=== PATIENT | male | born 1960 | race Caucasian/White ===

== ENCOUNTER → 2016-07-04 | Outpatient (CLI) | payer BC ==
--- NOTE | 2016-07-05 10:46 | XR ---
Left hip HISTORY: Left hip pain 2 views of the left. Comparison to prior exam 27 March 2015 Patient is status post left hip arthroplasty. There is heterotopic new bone formation about the left hip. Alignment and bone mineralization are maintained. No fracture or dislocation. Subchondral geode present in the acetabular roof. IMPRESSION: Extensive heterotopic new bone formation may be etiology of patient's pain.
== END ==
LOC: RADXRYALE 11:17
PROVIDERS: ATTEND Physician Assistant Medical
DX: M25.552 Pain in left hip (principal); M79.605 Pain in left leg; Z96.642 Presence of left artificial hip joint
CPT/HCPCS: 73502

== ENCOUNTER → 2016-10-07 | Outpatient (CLI) | payer BC ==
--- NOTE | 2016-10-09 13:51 | P.ARTDOP ---
Arterial Doppler LOWER EXTREMITY ARTERIAL DOPPLER: DATE OF SERVICE: 10/07/2016 Reason for study: Bilateral leg numbness. Doppler waveforms: Multiphasic bilaterally throughout. Pulse volume recording: Normal configuration. Pressure gradients: None. Ankle-brachial indices: Greater than 1 bilaterally. Toe pressures: [] on the right, [] on the left Impression: Normal study.
== END | disposition home or self-care (01) ==
LOC: RADUSWWP 12:30
PROVIDERS: ATTEND Family Medicine
DX: I73.9 Peripheral vascular disease, unspecified (principal); G62.9 Polyneuropathy, unspecified; M79.671 Pain in right foot; M79.672 Pain in left foot
CPT/HCPCS: 93922

== ENCOUNTER → 2018-05-14 | Outpatient (CLI) | payer OTHER ==
--- NOTE | 2018-05-14 10:40 | XR ---
EXAMINATION TYPE: XR chest 2V DATE OF EXAM: 05/14/2018 COMPARISON: Chest x-ray November 04, 2015. HISTORY: History of COPD with chronic shortness of breath TECHNIQUE: Frontal and lateral views of the chest are obtained. FINDINGS: There is background chronic emphysematous change with elevated left hemidiaphragm redemonst rated. Right hilar fullness is similar to prior suggesting underlying pulmonary artery hypertension. There is no focal air space opacity, pleural effusion, or pneumothorax seen. The cardiac silhouette size is stable and within normal limits. There is new mild to moderate focal tracheal concentric narr owing at level of the clavicles. The osseous structures are intact. IMPRESSION: Chronic emphysematous change without acute pulmonary process. New Mild focal concentric tracheal stenosis, correlate clinically.
== END | disposition home or self-care (01) ==
LOC: RADXRYALE 10:07
PROVIDERS: ATTEND Physician Assistant Medical
DX: J43.9 Emphysema, unspecified (principal); J39.8 Other specified diseases of upper respiratory tract
CPT/HCPCS: 71046

== ENCOUNTER → 2018-07-24 | Outpatient (CLI) | payer OTHER ==
[2018-07-24 11:46] LABS: Blood Urea Nitrogen 16 mg/dL (9-20)
--- NOTE | 2018-07-24 12:51 | CT ---
EXAMINATION TYPE: CT chest w con DATE OF EXAM: 07/24/2018 COMPARISON: None HISTORY: Stenosis of Trachea CT DLP: 573 mGycm Automated exposure control for dose reduction was used. CONTRAST: CT scan of the chest is performed with IV Contrast, patient injected with 100 mL of Isovue 300. FINDINGS: LUNGS: The lungs are grossly clear, there is no concerning parenchymal mass or nodule identified. T here is no pleural effusion or pneumothorax seen. The tracheobronchial tree is patent. MEDIASTINUM: There are no greater than 1 cm hilar or mediastinal lymph nodes. No pericardial effusi on is seen. Thoracic aorta is of normal caliber. The heart is not enlarged. No visible tracheal sten osis appreciated. UPPER ABDOMEN: Mild hepatomegaly. OTHER: No additional significant abnormality is seen. IMPRESSION: 1. No evidence for tracheal stenosis at this time.
== END | disposition home or self-care (01) ==
LOC: RADCTMAIN 11:08
PROVIDERS: ATTEND Nurse Practitioner Adult Health
DX: J39.8 Other specified diseases of upper respiratory tract (principal)
CPT/HCPCS: 82565; 84520; 71260; 36415; Q9967

== ENCOUNTER → 2018-11-20 | Outpatient (CLI) | payer OTHER ==
--- NOTE | 2018-11-26 11:49 | P.ARTDOP ---
Arterial Doppler LOWER EXTREMITY ARTERIAL DOPPLER: DATE OF SERVICE: 11/20/2018 Reason for study: Bilateral leg numbness. Doppler waveforms: Multiphasic bilaterally throughout. Pulse volume recording: []. Pressure gradients: None. Ankle-brachial indices: Greater than 1 bilaterally. Toe pressures: [] on the right, [] on the left Impression: Normal study.
== END | disposition home or self-care (01) ==
LOC: RADUSWWP 15:23
PROVIDERS: ATTEND Family Medicine
DX: M79.605 Pain in left leg (principal); M79.604 Pain in right leg; I48.0 Paroxysmal atrial fibrillation; I10 Essential (primary) hypertension; E78.2 Mixed hyperlipidemia
CPT/HCPCS: 93922; 93923

== ENCOUNTER 2019-01-29 10:15 | Emergency (ER) | payer OTHER ==
[2019-01-29] MEDS ORDERED: IPRATROPIUM-ALBUTEROL 3 ML NEB INHALATION STA ×2 (10:53→12:44)
[2019-01-29] MEDS ORDERED: methylPREDNISolone SOD SUCCI 125 MG/2 ML VIAL IV STA (10:53)
--- NOTE | 2019-01-29 11:22 | ED ---
SOB HPI - General Chief Complaint: Shortness of Breath Stated Complaint: Hyperglycemia, JAYNE Time Seen by Provider: 01/29/19 10:37 Source: patient, RN notes reviewed Mode of arrival: ambulatory Limitations: no limitations - History of Present Illness Initial Comments: This is a 4-year-old male with a history of COPD/asthma states she's had shortness of breath for about the last one half days cough with some yellow phlegm no overt fevers chills or sweats no overt chest pain. He states he always has some peripheral edema nothing out of the ordinary with that. No other modifying factors MD Complaint: shortness of breath, cough - Related Data Home Medications Medication Instructions Recorded Confirmed Hydrocodone/Acetaminophen 1 tab PO Q6H PRN 11/04/15 01/29/19 [Hydrocodone-Acetamin 7.5-325] metFORMIN HCL 1,000 mg PO BID 02/27/16 01/29/19 Atorvastatin [Lipitor] 80 mg PO DAILY 01/29/19 01/29/19 Gabapentin [Neurontin] 600 mg PO TID 01/29/19 01/29/19 Hydrochlorothiazide [Hydrodiuril] 25 mg PO DAILY 01/29/19 01/29/19 Insulin Glargine,Hum.rec.anlog 28 unit SQ HS 01/29/19 01/29/19 [Lantus Solostar] Ipratropium-Albuterol Nebulize 3 ml INHALATION RT-Q6H PRN 01/29/19 01/29/19 [Duoneb 0.5 mg-3 mg/3 ml Soln] Metoprolol Tartrate [Lopressor] 100 mg PO BID 01/29/19 01/29/19 glipiZIDE [Glucotrol] 20 mg PO BID 01/29/19 01/29/19 Previous Rx's Medication Instructions Recorded Doxycycline [Vibramycin] 100 mg PO BID #20 cap 01/29/19 predniSONE 20 mg PO BID #10 tab 01/29/19 Allergies Allergy/AdvReac Type Severity Reaction Status Date / Time No Known Allergies Allergy Verified 01/29/19 13:22 Review of Systems ROS Statement: Those systems with pertinent positive or pertinent negative responses have been documented in the HPI. ROS Other: All systems not noted in ROS Statement are negative. Past Medical History Past Medical History: Atrial Fibrillation, COPD, Diabetes Mellitus, Hypertension Additional Past Medical History / Comment(s): PT STATES HX BRONCHITIS.,lt hip post op infection-now healed History of Any Multi-Drug Resistant Organisms: None Reported Past Surgical History: Appendectomy, Joint Replacement, Orthopedic Surgery Additional Past Surgical History / Comment(s): L Index FINGER AMPUTATED FOR OSTEOMYLETIS,CATARACTS, CARPAL TUNNEL (L). LTotal hip-I&D x 2 Past Anesthesia/Blood Transfusion Reactions: No Reported Reaction Additional Past Anesthesia/Blood Transfusion Reaction / Comment(s): no hx blood transfusion Past Psychological History: No Psychological Hx Reported Smoking Status: Former smoker Past Alcohol Use History: Daily, Heavy Past Drug Use History: None Reported - Past Family History Father Additional Family Medical History / Comment(s): of old age Mother Family Medical History: Cancer, Diabetes Mellitus Additional Family Medical History / Comment(s): BREAST CA General Exam - General Exam Comments Initial Comments: This is a well-developed well-nourished awake alert oriented 3 male Limitations: no limitations General appearance: anxious Head exam: Present: atraumatic, normocephalic, normal inspection Eye exam: Present: normal appearance, PERRL, EOMI. Absent: scleral icterus, conjunctival injection, periorbital swelling ENT exam: Present: mucous membranes dry Neck exam: Present: normal inspection, full ROM, other. Absent: tenderness, meningismus, lymphadenopathy Respiratory exam: Present: wheezes, decreased breath sounds. Absent: respiratory distress, rales, rhonchi, stridor, chest wall tenderness Cardiovascular Exam: Present: regular rate, normal rhythm, normal heart sounds. Absent: systolic murmur, diastolic murmur, rubs, gallop, clicks GI/Abdominal exam: Present: soft, normal bowel sounds. Absent: distended, tenderness, guarding, rebound, rigid Extremities exam: Present: full ROM, normal capillary refill, pedal edema. Absent: tenderness, joint swelling, calf tenderness Back exam: Present: normal inspection Neurological exam: Present: alert, oriented X3, CN II-XII intact Psychiatric exam: Present: normal affect, normal mood Skin exam: Present: warm, dry, intact, normal color. Absent: rash Course Vital Signs 01/29/19 01/29/19 01/29/19 10:30 11:00 11:15 Temperature 97.6 F Pulse Rate 92 89 92 Respiratory 16 28 H Rate Blood Pressure 197/98 149/99 O2 Sat by Pulse 93 L 97 Oximetry 01/29/19 01/29/19 01/29/19 11: 12:00 13:02 Temperature Pulse Rate 92 89 95 Respiratory 18 Rate Blood Pressure 150/94 O2 Sat by Pulse 98 Oximetry 01/29/19 13:15 Temperature Pulse Rate 94 Respiratory Rate Blood Pressure O2 Sat by Pulse Oximetry Medical Decision Making - Medical Decision Making I did reevaluate patient on multiple occasions he did get IV magnesium as well as IV steroids. Patient is markedly improved and does not want to stay in the hospital would prefer to go home he is able to ambulate without difficulty his lung sounds are markedly improved he will be discharged with a prescription for steroid he has had the other medication that he uses at home. - Lab Data Result diagrams: 01/29/19 11:27 01/29/19 11:27 Lab Results 01/29/19 01/29/19 01/29/19 Range/Units 11: 11: 11:27 WBC 7.7 (3.8-10.6) k/uL RBC 4.18 L (4.30-5.90) m/uL Hgb 12.7 L (13.0-17.5) gm/dL Hct 38.3 L (39.0-53.0) % MCV 91.5 (80.0-100.0) fL MCH 30.4 (25.0-35.0) pg MCHC 33.2 (31.0-37.0) g/dL RDW 14.0 (11.5-15.5) % Plt Count 227 (150-450) k/uL Neutrophils % 63 % Lymphocytes % 23 % Monocytes % 5 % Eosinophils % 5 % Basophils % 1 % Neutrophils # 4.8 (1.3-7.7) k/uL Lymphocytes # 1.7 (1.0-4.8) k/uL Monocytes # 0.4 (0-1.0) k/uL Eosinophils # 0.4 (0-0.7) k/uL Basophils # 0.1 (0-0.2) k/uL PT (9.0-12.0) sec INR (<1.2) APTT (22.0-30.0) sec Sodium 134 L (137-145) mmol/L Potassium 4.9 (3.5-5.1) mmol/L Chloride 93 L (98-107) mmol/L Carbon Dioxide 31 H (22-30) mmol/L Anion Gap 10 mmol/L BUN 20 (9-20) mg/dL Creatinine 0.67 (0.66-1.25) mg/dL Est GFR (CKD-EPI)AfAm >90 (>60 ml/min/1.73 sqM) Est GFR (CKD-EPI)NonAf >90 (>60 ml/min/1.73 sqM) Glucose 171 H (74-99) mg/dL Calcium 9.5 (8.4-10.2) mg/dL Magnesium 1.5 L (1.6-2.3) mg/dL Total Bilirubin 0.8 (0.2-1.3) mg/dL AST 27 (17-59) U/L ALT 39 (21-72) U/L Alkaline Phosphatase 75 (38-126) U/L Creatine Kinase 215 H (55-170) U/L Troponin I (0.000-0.034) ng/mL NT-Pro-B Natriuret Pep 156 pg/mL Total Protein 7.3 (6.3-8.2) g/dL Albumin 4.5 (3.5-5.0) g/dL 01/29/19 01/29/19 Range/Units 11:27 11:27 WBC (3.8-10.6) k/uL RBC (4.30-5.90) m/uL Hgb (13.0-17.5) gm/dL Hct (39.0-53.0) % MCV (80.0-100.0) fL MCH (25.0-35.0) pg MCHC (31.0-37.0) g/dL RDW (11.5-15.5) % Plt Count (150-450) k/uL Neutrophils % % Lymphocytes % % Monocytes % % Eosinophils % % Basophils % % Neutrophils # (1.3-7.7) k/uL Lymphocytes # (1.0-4.8) k/uL Monocytes # (0-1.0) k/uL Eosinophils # (0-0.7) k/uL Basophils # (0-0.2) k/uL PT 9.7 (9.0-12.0) sec INR 0.9 (<1.2) APTT 23.4 (22.0-30.0) sec Sodium (137-145) mmol/L Potassium (3.5-5.1) mmol/L Chloride (98-107) mmol/L Carbon Dioxide (22-30) mmol/L Anion Gap mmol/L BUN (9-20) mg/dL Creatinine (0.66-1.25) mg/dL Est GFR (CKD-EPI)AfAm (>60 ml/min/1.73 sqM) Est GFR (CKD-EPI)NonAf (>60 ml/min/1.73 sqM) Glucose (74-99) mg/dL Calcium (8.4-10.2) mg/dL Magnesium (1.6-2.3) mg/dL Total Bilirubin (0.2-1.3) mg/dL AST (17-59) U/L ALT (21-72) U/L Alkaline Phosphatase (38-126) U/L Creatine Kinase (55-170) U/L Troponin I <0.012 (0.000-0.034) ng/mL NT-Pro-B Natriuret Pep pg/mL Total Protein (6.3-8.2) g/dL Albumin (3.5-5.0) g/dL - EKG Data -: EKG Interpreted by Me EKG shows normal: sinus rhythm EKG Comments: EKG shows sinus rhythm with sinus arrhythmia rate 84 MT interval 198 QRS 90 QT since QTC 342/404 - Radiology Data Radiology results: report reviewed (Review the imaging and report no evidence of acute findings), image reviewed Disposition Clinical Impression: Acute exacerbation of chronic obstructive pulmonary disease, Bronchitis Disposition: HOME SELF-CARE Condition: Good Instructions (If sedation given, give patient instructions): Bronchiectasis (ED), COPD (Chronic Obstructive Pulmonary Disease) (ED) Additional Instructions: Prescriptions sent to your preferred pharmacy Prescriptions: predniSONE 20 mg PO BID #10 tab Doxycycline [Vibramycin] 100 mg PO BID #20 cap Is patient prescribed a controlled substance at d/c from ED?: No Referrals: Arun Berg DO [Primary Care Provider] - 1-2 days
[2019-01-29 11:46] LABS: Basophils # (A) 0.1 k/uL (0-0.2); Basophils % (A) 1 %; Eosinophils # (A) 0.4 k/uL (0-0.7); Eosinophils % (A) 5 %; HCT 38.3 % (39.0-53.0); HGB 12.7 gm/dL (13.0-17.5); Lymphocytes # (A) 1.7 k/uL (1.0-4.8); Lymphocytes % (A) 23 %; MCH 30.4 pg (25.0-35.0); MCHC 33.2 g/dL (31.0-37.0); MCV 91.5 fL (80.0-100.0); Mean Platelet Volume 7.9; Monocytes # (A) 0.4 k/uL (0-1.0); Monocytes % (A) 5 %; Neutrophils # (A) 4.8 k/uL (1.3-7.7); Neutrophils % (A) 63 %; Platelet Count 227 k/uL (150-450); RBC 4.18 m/uL (4.30-5.90); WBC 7.7 k/uL (3.8-10.6)
[2019-01-29 11:52] LABS: ALT 39 U/L (21-72); AST 27 U/L (17-59); African American GFR (CKD) >90 (>60 ml/min/1.73 sqM); Albumin 4.5 g/dL (3.5-5.0); Alkaline Phosphatase 75 U/L (38-126); Anion Gap 10 mmol/L; Blood Urea Nitrogen 20 mg/dL (9-20); Calcium 9.5 mg/dL (8.4-10.2); Carbon Dioxide 31 mmol/L (22-30); Chloride 93 mmol/L (98-107); Creatine Kinase 215 U/L (55-170); Glucose 171 mg/dL (74-99); Magnesium 1.5 mg/dL (1.6-2.3); Non-African American GFR(CKD) >90 (>60 ml/min/1.73 sqM); Potassium 4.9 mmol/L (3.5-5.1); Sodium 134 mmol/L (137-145); Total Bilirubin 0.8 mg/dL (0.2-1.3); Total Protein 7.3 g/dL (6.3-8.2)
[2019-01-29 11:57] LABS: INR 0.9 (<1.2)
[2019-01-29 11:58] LABS: Partial Thromboplastin Time 23.4 sec (22.0-30.0); Prothrombin Time 9.7 sec (9.0-12.0)
--- NOTE | 2019-01-29 12:06 | XR ---
EXAMINATION TYPE: XR chest 2V DATE OF EXAM: 01/29/2019 COMPARISON: 05/14/2018 HISTORY: Shortness of breath TECHNIQUE: Frontal and lateral views of the chest are obtained. FINDINGS: Scattered senescent parenchymal changes noted. Hyperinflation compatible with COPD. No evidence for infiltrate. No evidence for atelectasis. Heart size is stable. Mediastinal structures are stable and grossly unremarkable. No evidence for hilar prominence. Degenerative changes dorsal spine. IMPRESSION: 1. No evidence for acute pulmonary disease.
[2019-01-29] MEDS ORDERED: MAGNESIUM SULFATE-D5W PMX 1 GM in DEXTROSE/WATER 1 100ML.BAG IVPB ONE (12:28)
[2019-01-29 12:41] VITALS: RESP 18
[2019-01-29 14:22] VITALS: BP 146/90; PULSE 97
[2019-01-29 14:28] VITALS: TEMP 98
== END 2019-01-29 14:27 | disposition home or self-care (01) ==
LOC: EC 10:15
DX: J44.1 Chronic obstructive pulmonary disease with (acute) exacerbation (principal); J40 Bronchitis, not specified as acute or chronic; R60.0 Localized edema; I48.91 Unspecified atrial fibrillation; E11.9 Type 2 diabetes mellitus without complications; I10 Essential (primary) hypertension; Z79.4 Long term (current) use of insulin; Z79.899 Other long term (current) drug therapy; Z79.51 Long term (current) use of inhaled steroids; Z87.891 Personal history of nicotine dependence
CPT/HCPCS: 36415; 71046; 80053; 82550; 83735; 83880; 84484; 85025; 85610; 85730; 87040; 93005; 94640; 96365; 96375; 99285

== ENCOUNTER → 2019-03-30 | Outpatient (CLI) | payer OTHER ==
--- NOTE | 2019-03-30 09:27 | XR ---
EXAMINATION TYPE: XR foot complete RT DATE OF EXAM: 03/30/2019 CLINICAL HISTORY: pain TECHNIQUE: Frontal, lateral and oblique images of the right foot are obtained. COMPARISON: None. FINDINGS: There is no acute fracture/dislocation evident. The joint spaces appear mildly narrowed a t the first metatarsal phalangeal joint. The overlying soft tissue appears unremarkable. IMPRESSION: There is no acute fracture or dislocation. ICD 10 NO FRACTURE, INITIAL EVALUATION
== END | disposition home or self-care (01) ==
LOC: RADXRYALE 08:45
PROVIDERS: ATTEND Physician Assistant Medical
DX: S91.301A Unspecified open wound, right foot, initial encounter (principal)

== ENCOUNTER → 2019-04-30 | Outpatient (CLI) | payer OTHER ==
--- NOTE | 2019-04-30 13:28 | NM ---
EXAMINATION TYPE: NM bone 3 phase DATE OF EXAM: 04/30/2019 COMPARISON: Radiograph 04/16/2019 and 03/30/2019 HISTORY: 58-year-old male open sore on the right along the medial ball of the foot Technique: Triple phase bone scintigraphy was performed following the injection of 22.5 mCi Tc 99m MD P. Immediate images and 3 hours post injection images acquired. Imaging centered at the distal aspec t of the bilateral lower extremities. FINDINGS: Flow images show hyperemia to the right forefoot. Pool images show corresponding increased signal at the level of the first metatarsal head. Delayed images show intense focal uptake in this region as well. IMPRESSION: Three-phase bone scan abnormality localized to the first metatarsal head. Findings suggest osteomyeli tis.
== END | disposition home or self-care (01) ==
LOC: RADNMMAIN 07:29
PROVIDERS: ATTEND Podiatrist
DX: R93.7 Abnormal findings on diagnostic imaging of other parts of musculoskeletal system (principal); E11.621 Type 2 diabetes mellitus with foot ulcer; I10 Essential (primary) hypertension; L97.502 Non-pressure chronic ulcer of other part of unspecified foot with fat layer exposed; I73.9 Peripheral vascular disease, unspecified; M1A.0711 Idiopathic chronic gout, right ankle and foot, with tophus (tophi); M86.171 Other acute osteomyelitis, right ankle and foot
CPT/HCPCS: 78315; A9503

== ENCOUNTER → 2019-05-04 | Outpatient (CLI) | payer OTHER ==
--- NOTE | 2019-05-04 11:00 | US ---
LOWER EXTREMITY VENOUS INSUFFICIENCY CLINICAL HISTORY: E11.621 TYPE 2 DIABETES MELLITUS, L97.502 NON-PRES. Right foot non healing wound x 1 month SIDE PERFORMED: Bilateral 1) Color flow is present and patency is documented in the following vessels. No DVT or SVT is noted . EIV Common Femoral Vein Deep Femoral Vein Femoral Vein Popliteal Vein Proximal Calf Veins Greater Saph Vein Upper Small Saph Vein 2) There is venous reflux noted at the following venous levels: none IMPRESSION: 1. No venous reflux evident bilateral lower extremities.
--- NOTE | 2019-05-05 10:04 | P.ARTDOP ---
Arterial Doppler LOWER EXTREMITY ARTERIAL DOPPLER: DATE OF SERVICE: 05/04/2019 Reason for study: Right foot ulcer with diabetes. Doppler waveforms: Multiphasic bilaterally throughout. Pulse volume recording: []. Pressure gradients: None other than at the foot level. Ankle-brachial indices: Greater than 1 bilaterally. Toe brachial indices: 0.38 on the right and 0.74 on the left on the right, Impression: Normal study. Toe pressures are lower on the right but the waveform is better so suspect flow is normal..
== END | disposition home or self-care (01) ==
LOC: RADUSWWP 08:59
PROVIDERS: ATTEND Podiatrist
DX: E11.621 Type 2 diabetes mellitus with foot ulcer (principal); I73.9 Peripheral vascular disease, unspecified; I10 Essential (primary) hypertension; L97.502 Non-pressure chronic ulcer of other part of unspecified foot with fat layer exposed
CPT/HCPCS: 93923; 93970

== ENCOUNTER 2019-05-20 14:05 | Inpatient (IN) | payer OTHER ==
[2019-05-20] MEDS ORDERED: PIPERACILLIN-TAZOBACTAM 3.375 GM in SODIUM CHLORIDE 0.9% 100 ML IVPB STA (14:45)
[2019-05-20] MEDS ORDERED: VANCOMYCIN IV PER PHARMACY 1 EACH MISC MISCELLANE PRN (14:45)
[2019-05-20] MEDS ORDERED: MORPHINE SULFATE 4 MG/ML SYRINGE IVP STA (14:46)
[2019-05-20] MEDS ORDERED: ACETAMINOPHEN TAB 500 MG TAB PO STA (14:46)
--- NOTE | 2019-05-20 14:46 | ED ---
Extremity Problem HPI - General Chief complaint: Extremity Problem,Nontraumatic Stated complaint: Infection Time Seen by Provider: 05/20/19 14:16 Source: EMS, RN notes reviewed, old records reviewed Mode of arrival: EMS Limitations: physical limitation - History of Present Illness Initial comments: Patient is a 58-year-old male diabetic with history of COPD. He presents to the emergency Department today with complaints of right great toe infection. He reports he is noticed increasing redness and swelling and signs of infection for the past month. He states some antibiotic but cannot tell me what type this time. Patient states that he does see wound care physician Dr. Becker. He saw them yesterday. - Related Data Home Medications Medication Instructions Recorded Confirmed Hydrocodone/Acetaminophen 1 tab PO Q6H PRN 11/04/15 01/29/19 [Hydrocodone-Acetamin 7.5-325] metFORMIN HCL 1,000 mg PO BID 02/27/16 01/29/19 Atorvastatin [Lipitor] 80 mg PO DAILY 01/29/19 01/29/19 Gabapentin [Neurontin] 600 mg PO TID 01/29/19 01/29/19 Hydrochlorothiazide [Hydrodiuril] 25 mg PO DAILY 01/29/19 01/29/19 Insulin Glargine,Hum.rec.anlog 28 unit SQ HS 01/29/19 01/29/19 [Lantus Solostar] Ipratropium-Albuterol Nebulize 3 ml INHALATION RT-Q6H PRN 01/29/19 01/29/19 [Duoneb 0.5 mg-3 mg/3 ml Soln] Metoprolol Tartrate [Lopressor] 100 mg PO BID 01/29/19 01/29/19 glipiZIDE [Glucotrol] 20 mg PO BID 01/29/19 01/29/19 Previous Rx's Medication Instructions Recorded Doxycycline [Vibramycin] 100 mg PO BID #20 cap 01/29/19 predniSONE [Deltasone] 20 mg PO BID #10 tab 01/29/19 Allergies Allergy/AdvReac Type Severity Reaction Status Date / Time No Known Allergies Allergy Verified 01/29/19 13:22 Review of Systems ROS Statement: Those systems with pertinent positive or pertinent negative responses have been documented in the HPI. ROS Other: All systems not noted in ROS Statement are negative. Past Medical History Past Medical History: Atrial Fibrillation, COPD, Diabetes Mellitus, Hypertension Additional Past Medical History / Comment(s): PT STATES HX BRONCHITIS.,lt hip post op infection-now healed History of Any Multi-Drug Resistant Organisms: None Reported Past Surgical History: Appendectomy, Joint Replacement, Orthopedic Surgery Additional Past Surgical History / Comment(s): L Index FINGER AMPUTATED FOR OS TEOMYLETIS,CATARACTS, CARPAL TUNNEL (L). LTotal hip-I&D x 2 Past Anesthesia/Blood Transfusion Reactions: No Reported Reaction Additional Past Anesthesia/Blood Transfusion Reaction / Comment(s): no hx blood transfusion Past Psychological History: No Psychological Hx Reported Smoking Status: Former smoker Past Alcohol Use History: Daily, Heavy Past Drug Use History: None Reported - Past Family History Father Additional Family Medical History / Comment(s): of old age Mother Family Medical History: Cancer, Diabetes Mellitus Additional Family Medical History / Comment(s): BREAST CA General Exam - General Exam Comments Initial Comments: 58 year old male, no distress. Limitations: physical limitation General appearance: alert, in no apparent distress Head exam: Present: atraumatic, normocephalic, normal inspection Eye exam: Present: normal appearance ENT exam: Present: normal exam, mucous membranes moist Neck exam: Present: normal inspection. Absent: tenderness, meningismus, lymphadenopathy Respiratory exam: Present: wheezes, decreased breath sounds. Absent: normal lung sounds bilaterally, respiratory distress, rales, rhonchi, stridor Cardiovascular Exam: Present: regular rate, normal rhythm, normal heart sounds. Absent: systolic murmur, diastolic murmur, rubs, gallop, clicks GI/Abdominal exam: Present: soft, normal bowel sounds. Absent: distended, tenderness, guarding, rebound, rigid Extremities exam: Present: full ROM, normal capillary refill, other ( is extensive cellulitis over the right lower extremity and calf. Evidence of wound over the first great toe with drainage.). Absent: normal inspection, tenderness, pedal edema, joint swelling, calf tenderness Back exam: Present: normal inspection Neurological exam: Present: alert Psychiatric exam: Present: normal affect, normal mood Skin exam: Present: warm, dry, intact, normal color. Absent: rash Course Vital Signs 05/20/19 05/20/19 14:06 15:52 Temperature 98.4 F Pulse Rate 121 H 96 Respiratory 22 20 Rate Blood Pressure 131/92 132/93 O2 Sat by Pulse 97 98 Oximetry Medical Decision Making - Medical Decision Making 58 year old male presents today for concern for right foot wound and infection and cellulitis over the R leg. Patient is diabetic. Patient has extensive cellulitis extending up to the calf. Patient does have multiple wounds over the great toe. Culture is obtained. Patient was started on Zosyn and vancomycin. Patient's labs show evidence of renal compromise. This is worse than previous. Foot x-ray shows no evidence of osteomyelitis. Patient otherwise does have some wheezing, with history of COPD. Chest x-ray shows no infiltrate. - Lab Data Result diagrams: 05/20/19 14:47 05/20/19 14:47 Lab Results 05/20/19 05/20/19 05/20/19 Range/Units 14:47 14:47 14:47 WBC 10.9 H (3.8-10.6) k/uL RBC 3.59 L (4.30-5.90) m/uL Hgb 10.4 L (13.0-17.5) gm/dL Hct 32.5 L (39.0-53.0) % MCV 90.6 (80.0-100.0) fL MCH 29.0 (25.0-35.0) pg MCHC 32.1 (31.0-37.0) g/dL RDW 13.2 (11.5-15.5) % Plt Count 677 H D (150-450) k/uL Neutrophils % 79 % Lymphocytes % 9 % Monocytes % 5 % Eosinophils % 2 % Basophils % 0 % Neutrophils # 8.7 H (1.3-7.7) k/uL Lymphocytes # 1.0 (1.0-4.8) k/uL Monocytes # 0.6 (0-1.0) k/uL Eosinophils # 0.2 (0-0.7) k/uL Basophils # 0.0 (0-0.2) k/uL PT 10.8 (9.0-12.0) sec INR 1.0 (<1.2) APTT 25.3 (22.0-30.0) sec Sodium 143 (137-145) mmol/L Potassium 5.5 H (3.5-5.1) mmol/L Chloride 110 H (98-107) mmol/L Carbon Dioxide 23 (22-30) mmol/L Anion Gap 10 mmol/L BUN 95 H (9-20) mg/dL Creatinine 2.59 H (0.66-1.25) mg/dL Est GFR (CKD-EPI)AfAm 30 (>60 ml/min/1.73 sqM) Est GFR (CKD-EPI)NonAf 26 (>60 ml/min/1.73 sqM) Glucose 196 H (74-99) mg/dL Plasma Lactic Acid Elias (0.7-2.0) mmol/L Calcium 10.3 H (8.4-10.2) mg/dL Total Bilirubin 0.4 (0.2-1.3) mg/dL AST 30 (17-59) U/L ALT 28 (4-49) U/L Alkaline Phosphatase 108 (38-126) U/L Troponin I (0.000-0.034) ng/mL Total Protein 6.9 (6.3-8.2) g/dL Albumin 3.7 (3.5-5.0) g/dL 05/20/19 05/20/19 Range/Units 14:47 14:47 WBC (3.8-10.6) k/uL RBC (4.30-5.90) m/uL Hgb (13.0-17.5) gm/dL Hct (39.0-53.0) % MCV (80.0-100.0) fL MCH (25.0-35.0) pg MCHC (31.0-37.0) g/dL RDW (11.5-15.5) % Plt Count (150-450) k/uL Neutrophils % % Lymphocytes % % Monocytes % % Eosinophils % % Basophils % % Neutrophils # (1.3-7.7) k/uL Lymphocytes # (1.0-4.8) k/uL Monocytes # (0-1.0) k/uL Eosinophils # (0-0.7) k/uL Basophils # (0-0.2) k/uL PT (9.0-12.0) sec INR (<1.2) APTT (22.0-30.0) sec Sodium (137-145) mmol/L Potassium (3.5-5.1) mmol/L Chloride (98-107) mmol/L Carbon Dioxide (22-30) mmol/L Anion Gap mmol/L BUN (9-20) mg/dL Creatinine (0.66-1.25) mg/dL Est GFR (CKD-EPI)AfAm (>60 ml/min/1.73 sqM) Est GFR (CKD-EPI)NonAf (>60 ml/min/1.73 sqM) Glucose (74-99) mg/dL Plasma Lactic Acid Elias 0.9 (0.7-2.0) mmol/L Calcium (8.4-10.2) mg/dL Total Bilirubin (0.2-1.3) mg/dL AST (17-59) U/L ALT (4-49) U/L Alkaline Phosphatase (38-126) U/L Troponin I <0.012 (0.000-0.034) ng/mL Total Protein (6.3-8.2) g/dL Albumin (3.5-5.0) g/dL 05/20/19 15:30 EKG shows sinus tachycardia otherwise normal EKG. Ventricular rate 102 bpm. 192 ms. QRS duration 86. Qt/Qtc 330/430 ms. - Radiology Data Radiology results: report reviewed Elevation of left hemidiaphragm further evaluation with otitis media considered. Enlarged cardiomediastinal silhouette. Chronic COPD. Evidence of soft tissue swelling causing for cellulitis. Additional findings above vascular calcifications with indicative of diabetes. Disposition Clinical Impression: Diabetes, Cellulitis of right leg, Renal failure, Failure of outpatient treatment Disposition: ADMITTED IP TO THIS HOSP Condition: Stable Is patient prescribed a controlled substance at d/c from ED?: No Referrals: Arun Berg DO [Primary Care Provider] - 1-2 days Time of Disposition: 16:58
[2019-05-20] MEDS ORDERED: VANCOMYCIN 1,500 MG in SODIUM CHLORIDE 0.9% 250 ML IVPB STA (14:52)
[2019-05-20] MEDS: SODIUM CHLORIDE 0.9% 500 ML 500 ML IV SCH ×2 (15:04→16:56)
[2019-05-20 15:11] LABS: Albumin 3.7 g/dL (3.5-5.0); Calcium 10.3 mg/dL (8.4-10.2); Potassium 5.5 mmol/L (3.5-5.1); Total Bilirubin 0.4 mg/dL (0.2-1.3); Total Protein 6.9 g/dL (6.3-8.2)
[2019-05-20 15:20] LABS: Basophils % (A) 0 %; Eosinophils # (A) 0.2 k/uL (0-0.7); Eosinophils % (A) 2 %; HCT 32.5 % (39.0-53.0); HGB 10.4 gm/dL (13.0-17.5); Lymphocytes % (A) 9 %; MCHC 32.1 g/dL (31.0-37.0); MCV 90.6 fL (80.0-100.0); Mean Platelet Volume 7.7; Monocytes # (A) 0.6 k/uL (0-1.0); Monocytes % (A) 5 %; Neutrophils # (A) 8.7 k/uL (1.3-7.7); Neutrophils % (A) 79 %; Partial Thromboplastin Time 25.3 sec (22.0-30.0); Prothrombin Time 10.8 sec (9.0-12.0); RBC 3.59 m/uL (4.30-5.90); RDW 13.2 % (11.5-15.5); WBC 10.9 k/uL (3.8-10.6)
[2019-05-20 15:23] LABS: Platelet Count 677 k/uL (150-450)
--- NOTE | 2019-05-20 15:53 | XR ---
EXAMINATION TYPE: XR chest 2V DATE OF EXAM: 05/20/2019 COMPARISON: 01/29/2019 HISTORY: Cough and shortness of breath TECHNIQUE: Frontal and lateral views of the chest are obtained. FINDINGS: There is no focal air space opacity, pleural effusion, or pneumothorax seen. The cardiac silhouette size is enlarged. Flattening the diaphragms on the lateral view indicative of underlying C OPD. Elevation of the left hemidiaphragm is new. The osseous structures are intact. IMPRESSION: 1. New elevation of the left hemidiaphragm. Further evaluation with nonemergent sniff test could be c onsidered. 2. Persistently enlarged cardiomediastinal silhouette. 3. Underlying COPD.
--- NOTE | 2019-05-20 15:54 | XR ---
Right foot HISTORY: Right fifth toe infection 3 views of the right foot correlated to prior exam 04/16/2019 Degenerative changes are present at the first metatarsophalangeal joint. Alignment, bone mineralizati on otherwise maintained. No periostitis to suggest osteomyelitis. Soft tissue swelling is present. Va scular calcifications may be indicative of underlying diabetes, correlate. There is a plantar calcane al spur. IMPRESSION: Soft tissue swelling, correlate for cellulitis. Additional findings above.
[2019-05-20] MEDS: PIPERACILLIN-TAZOBACTAM 3.375 GM in SODIUM CHLORIDE 0.9% 100 ML IVPB SCH (16:19)
[2019-05-20] MEDS ORDERED: IBUPROFEN 400 MG TAB PO PRN (16:58)
[2019-05-20] MEDS ORDERED: ONDANSETRON 4 MG/2 ML VIAL IVP PRN (16:58)
[2019-05-20] MEDS ORDERED: ACETAMINOPHEN TAB 325 MG TAB PO PRN (16:58)
[2019-05-20] MEDS ORDERED: NALOXONE 0.4 MG/ML 1 ML VIAL IV PRN (16:58)
[2019-05-20] MEDS: SODIUM CHLORIDE 0.9% 1,000 ML IV SCH (18:13)
[2019-05-20 20:59] LABS: Glucose,Whole Blood 213 mg/dL (75-99)
[2019-05-20] MEDS: METOPROLOL TARTRATE 50 MG TAB PO SCH (22:28)
[2019-05-20] MEDS: INSULIN ASPART (NovoLOG) 100 UNIT/ML VIAL SQ SCH (22:28)
[2019-05-20] MEDS: MORPHINE SULFATE 4 MG/ML SYRINGE IV PRN (22:29)
[2019-05-21] MEDS: PIPERACILLIN-TAZOBACTAM 3.375 GM in SODIUM CHLORIDE 0.9% 100 ML IVPB SCH ×2 (00:25→07:20)
[2019-05-21] MEDS: MORPHINE SULFATE 4 MG/ML SYRINGE IV PRN ×2 (03:58→21:21)
[2019-05-21] MEDS: SODIUM CHLORIDE 0.9% 1,000 ML IV SCH (07:01)
[2019-05-21 07:12] LABS: Glucose,Whole Blood 190 mg/dL (75-99)
[2019-05-21] MEDS: METOPROLOL TARTRATE 50 MG TAB PO SCH ×3 (07:20→21:14)
[2019-05-21] MEDS: INSULIN ASPART (NovoLOG) 100 UNIT/ML VIAL SQ SCH ×4 (07:20→21:11)
[2019-05-21] MEDS ORDERED: hydrOXYzine HCL 25 MG TAB PO PRN (07:28)
[2019-05-21] MEDS ORDERED: BUDESONIDE 1 MG/2 ML NEBU INHALATION PRN (07:28)
[2019-05-21] MEDS ORDERED: THIAMINE 100 MG/ML 2 ML VIAL IM STA (07:37)
[2019-05-21] MEDS: ATORVASTATIN 80 MG TAB PO SCH (08:21)
[2019-05-21] MEDS: GABAPENTIN 300 MG CAP PO SCH ×3 (08:21→21:13)
[2019-05-21] MEDS: HEPARIN SODIUM,PORCINE 5,000 UNIT/ML 1 ML VIAL SQ SCH ×2 (08:21→21:13)
[2019-05-21] MEDS: LORazepam 2 MG/ML INJ IV PRN ×4 (08:22→19:43)
[2019-05-21 08:48] LABS: Appearance,Urine Cloudy (Clear); Bacteria,Urine Rare /hpf; Bilirubin,Urine Negative (Negative); Blood,Urine Moderate (Negative); Color,Urine Light Yellow; Glucose,Urine (UA) Negative (Negative); Hyaline Casts,Urine 1 /lpf (0-2); Ketones,Urine Negative (Negative); Leukocyte Esterase,Urine Negative (Negative); Mucus,Urine Rare /hpf; Nitrite,Urine Negative (Negative); Protein,Urine Negative (Negative); RBC,Urine 58 /hpf (0-5); Specific Gravity,Urine 1.012 (1.001-1.035); Uric Acid Crystals,Urine Few /hpf; Urobilinogen,Urine <2.0 mg/dL (<2.0); WBC,Urine 1 /hpf (0-5)
[2019-05-21] MEDS: IPRATROPIUM-ALBUTEROL 3 ML NEB INHALATION SCH ×5 (08:54→23:53)
[2019-05-21] MEDS ORDERED: FAMOTIDINE 20 MG/2 ML VIAL IV SCH (09:00)
--- NOTE | 2019-05-21 11:00 | P.NPCON ---
History of Present Illness - Reason for Consult acute renal failure - History of Present Illness Reason for consultation: Acute kidney injury History of present illness: Patient is a 58-year-old male seen in consultation for acute kidney injury. Patient's baseline creatinine is 1 from earlier this month and was at 2.59 on admission yesterday. Labs from today are pending. Patient presents to the hospital with right lower extremity cellulitis. Patient states for the last month he's noticed swelling which is worsening as well as erythema in his right lower extremity. Patient states he has been taking Bactrim for the last 1-2 weeks but is not completely sure. He denies significant edema in his left lower extremity. No vomiting or diarrhea. Oral intake is good. He has been voiding. Denies hematuria or dysuria. He does have history of diabetes mellitus and is maintained on insulin as well as metformin outpatient. He was also on losartan and Lasix at home which are currently held at this time. I don't see any nonsteroidals and his home medications. Patient states he does take pain m edication but is unable to recall the name. Patient states his mother used to be on hemodialysis but is unsure of etiology. No abdominal pain. Blood pressure stable. No fever or chills. Vital signs are stable. General: The patient appeared well nourished and normally developed. HEENT: Head exam is unremarkable. Neck is without jugular venous distension. LUNGS: Lungs are clear to auscultation and percussion. Breath sounds decreased. HEART: Rate and Rhythm are regular. First and second heart sounds normal. No murmurs, rubs or gallops. ABDOMEN: Abdominal exam reveals normal bowel sounds. Non-tender and non- distended. No evidence of peritonitis. EXTREMITITES: 2+ edema right lower extremity. Erythema noted. Trace edema in the left lower extremity. Past Medical History Past Medical History: Atrial Fibrillation, COPD, Diabetes Mellitus, Hypertension Additional Past Medical History / Comment(s): PT STATES HX BRONCHITIS.,lt hip post op infection-now healed History of Any Multi-Drug Resistant Organisms: None Reported Past Surgical History: Appendectomy, Joint Replacement, Orthopedic Surgery Additional Past Surgical History / Comment(s): L Index FINGER AMPUTATED FOR OSTEOMYLETIS,CATARACTS, CARPAL TUNNEL (L). LTotal hip-I&D x 2 Past Anesthesia/Blood Transfusion Reactions: No Reported Reaction Additional Past Anesthesia/Blood Transfusion Reaction / Comment(s): no hx blood transfusion Past Psychological History: No Psychological Hx Reported Smoking Status: Former smoker Past Alcohol Use History: Daily, Heavy Additional Past Alcohol Use History / Comment(s): QUIT SMOKING 2013. SMOKED 1PPD FOR 25-30 YEARS. DRINKS 5 tall boy BEERS DAILY. Past Drug Use History: None Reported Additional Drug Use History / Comment(s): STATES OCCASIONAL MARIJUANA USE. - Past Family History Father Additional Family Medical History / Comment(s): of old age Mother Family Medical History: Cancer, Diabetes Mellitus Additional Family Medical History / Comment(s): BREAST CA Medications and Allergies Home Medications Medication Instructions Recorded Confirmed Type Hydrocodone/Acetaminophen 1 tab PO TID 11/04/15 05/20/19 History [Hydrocodone-Acetamin 7.5-325] metFORMIN HCL 1,000 mg PO BID 02/27/16 05/20/19 History Atorvastatin [Lipitor] 80 mg PO DAILY 01/29/19 05/20/19 History Hydrochlorothiazide [Hydrodiuril] 25 mg PO DAILY 01/29/19 05/20/19 History Insulin Glargine,Hum.rec.anlog 35 unit SQ HS 01/29/19 05/20/19 History [Lantus Solostar] Ipratropium-Albuterol Nebulize 3 ml INHALATION RT-Q4H 01/29/19 05/20/19 History [Duoneb 0.5 mg-3 mg/3 ml Soln] Metoprolol Tartrate [Lopressor] 100 mg PO BID 01/29/19 05/20/19 History glipiZIDE [Glucotrol] 20 mg PO BID 01/29/19 05/20/19 History Budesonide 1 mg INHALATION RT-Q6H PRN 05/20/19 05/20/19 History Furosemide [Lasix] 20 mg PO Q48H 05/20/19 05/20/19 History Gabapentin 600 mg PO TID 05/20/19 05/20/19 History Losartan Potassium 100 mg PO DAILY 05/20/19 05/20/19 History Sulfamethox-Tmp 800-160Mg [Bactrim 1 tab PO BID 05/20/19 05/20/19 History DS 800-160 mg] hydrOXYzine HCL [Atarax] 25 mg PO HS PRN 05/20/19 05/20/19 History Allergies Allergy/AdvReac Type Severity Reaction Status Date / Time No Known Allergies Allergy Verified 05/20/19 19:01 Physical Exam Vitals: Vital Signs Temp Pulse Pulse Resp BP BP Pulse Ox 05/21/19 09:07 92 05/21/19 08:58 86 05/21/19 07:00 98.3 F 102 H 17 156/90 05/21/19 02:19 98.2 F 53 L 14 158/91 99 05/20/19 19:05 98.0 F 70 17 104/77 93 L 05/20/19 18:10 18 05/20/19 18:02 98.1 F 105 H 18 151/65 96 05/20/19 15:52 96 20 132/93 98 05/20/19 14:06 98.4 F 121 H 22 131/92 97 Intake and Output 05/20/19 05/21/19 05/21/19 22:59 06:59 14:59 Intake Total 800 Balance 800 Intake: Intake, IV Titration 800 Amount Sodium Chloride 0.9% 1, 800 000 ml @ 100 mls/hr IV . Q10H [facility] Rx#:[id number] Other: Voiding Method Toilet # Voids 4 3 Weight 72.575 kg Results - Lab Results Most recent lab results Calcium 10.3 mg/dL (8.4-10.2) H 05/20/19 14:47 05/20/19 14:47 05/20/19 14:47 Assessment and Plan Plan: Assessment: 1. Acute kidney injury secondary to Bactrim which will impair creatinine secretion. Creatinine 2.59 on admission. Baseline creatinine near 1. No proteinuria on UA. Rule out urinary retention and obstructive uropathy. 2. Right lower extremity cellulitis maintained on antibiotics. 3. Insulin-dependent diabetes mellitus. 4. Benign hypertension. 5. Mild hyperkalemia secondary to acute kidney injury and Bactrim. 6. Lower extremity edema. Plan: Hep-Lock IV fluids. Check renal ultrasound. Check bladder scan to rule out urinary retention. Avoid nephrotoxins. Monitor vancomycin levels. Continue to hold losartan and diuretics at this time. Follow-up morning labs. Thank you for the consultation. I will continue to follow the patient with you during his hospital stay.
[2019-05-21 11:32] LABS: Glucose,Whole Blood 194 mg/dL (75-99)
--- NOTE | 2019-05-21 11:44 | US ---
EXAMINATION TYPE: US kidneys/renal and bladder DATE OF EXAM: 05/21/2019 COMPARISON: CT chest July 24, 2018. CLINICAL HISTORY: glynn. EXAM MEASUREMENTS: Right Kidney: 13.6 x 7.1 x 5.5 cm Left Kidney: 14.4 x 7.2 x 6.6 cm Incoherent uncooperative patient. Technically difficult. Right Kidney: Limited views, appears perhaps mildly enlarged Left Kidney: Limited views, appears perhaps mildly enlarged Bladder: not seen When scanning right kidney adjacent liver is heterogeneously hyperechoic suggesting diffuse fatty inf iltration. Kidney show no concerning mass or hydronephrosis on images saved. Bladder not scanned. IMPRESSION: No hydronephrosis is noted bilaterally.
[2019-05-21] MEDS ORDERED: VANCOMYCIN 1,250 MG in SODIUM CHLORIDE 0.9% 250 ML IVPB SCH (12:00)
[2019-05-21 12:11] LABS: Calcium 9.8 mg/dL (8.4-10.2); Potassium 5.7 mmol/L (3.5-5.1)
--- NOTE | 2019-05-21 12:48 | P.HPIM ---
History of Present Illness This is a pleasant 58 years old male with past medical history of COPD, hypertension, diabetes mellitus, atrial fibrillation not on anticoagulation Vital signs stable, patient is afebrile. Labs showing mild leukocytosis of 10.9 K, platelets 677, hemoglobin 10.4, INR 1.0, potassium 5.5, creatinine 2.5, ba seline is 0.7-1.1, sugar around 200, liver enzymes not elevated. Once culture is pending. Chest x-ray: No acute process, leg x-ray: Soft tissue swelling EKG showing sinus tachycardia at [address]-T changes. On admission patient was started on Zosyn and IV vancomycin and normal saline and 100 mL per hour Infectious disease consult was placed from emergency room p Bladder scan was checked and showing postvoid residual of 500 mL which was obtained the same amount after Nguyen catheter was placed Patient is also is heavy drinker and drinks 8-9 beers every day for weeks and months MAPS was checked and patient is on gabapentin 600 mg 3 times a day and hydrocodone 7.5 mg 3 times a day Review of Systems CONSTITUTIONAL: No fever, no malaise, no fatigue. HEENT: No recent visual problems or hearing problems. Denied any sore throat. CARDIOVASCULAR: No orthopnea, PND, no palpitations, no syncope. PULMONARY: No shortness of breath, no cough, no hemoptysis. GASTROINTESTINAL: No diarrhea, no nausea, no vomiting, no abdominal pain. Normoactive bowel sounds. NEUROLOGICAL: No headaches, no weakness, no numbness. HEMATOLOGICAL: Denies any bleeding or petechiae. GENITOURINARY: Denies any burning micturition, frequency, or urgency. MUSCULOSKELETAL/RHEUMATOLOGICAL: Denies any joint pain, swelling, or any muscle pain. ENDOCRINE: Denies any polyuria or polydipsia. Past Medical History Past Medical History: Atrial Fibrillation, COPD, Diabetes Mellitus, Hypertension Additional Past Medical History / Comment(s): PT STATES HX BRONCHITIS.,lt hip post op infection-now healed History of Any Multi-Drug Resistant Organisms: None Reported Past Surgical History: Appendectomy, Joint Replacement, Orthopedic Surgery Additional Past Surgical History / Comment(s): L Index FINGER AMPUTATED FOR OSTEOMYLETIS,CATARACTS, CARPAL TUNNEL (L). LTotal hip-I&D x 2 Past Anesthesia/Blood Transfusion Reactions: No Reported Reaction Additional Past Anesthesia/Blood Transfusion Reaction / Comment(s): no hx blood transfusion Past Psychological History: No Psychological Hx Reported Smoking Status: Former smoker Past Alcohol Use History: Daily, Heavy Additional Past Alcohol Use History / Comment(s): QUIT SMOKING 2013. SMOKED 1PPD FOR 25-30 YEARS. DRINKS 5 tall boy BEERS DAILY. Past Drug Use History: None Reported Additional Drug Use History / Comment(s): STATES OCCASIONAL MARIJUANA USE. - Past Family History Father Additional Family Medical History / Comment(s): of old age Mother Family Medical History: Cancer, Diabetes Mellitus Additional Family Medical History / Comment(s): BREAST CA Medications and Allergies Home Medications Medication Instructions Recorded Confirmed Type Hydrocodone/Acetaminophen 1 tab PO TID 11/04/15 05/20/19 History [Hydrocodone-Acetamin 7.5-325] metFORMIN HCL 1,000 mg PO BID 02/27/16 05/20/19 History Atorvastatin [Lipitor] 80 mg PO DAILY 01/29/19 05/20/19 History Hydrochlorothiazide [Hydrodiuril] 25 mg PO DAILY 01/29/19 05/20/19 History Insulin Glargine,Hum.rec.anlog 35 unit SQ HS 01/29/19 05/20/19 History [Lantus Solostar] Ipratropium-Albuterol Nebulize 3 ml INHALATION RT-Q4H 01/29/19 05/20/19 History [Duoneb 0.5 mg-3 mg/3 ml Soln] Metoprolol Tartrate [Lopressor] 100 mg PO BID 01/29/19 05/20/19 History glipiZIDE [Glucotrol] 20 mg PO BID 01/29/19 05/20/19 History Budesonide 1 mg INHALATION RT-Q6H PRN 05/20/19 05/20/19 History Furosemide [Lasix] 20 mg PO Q48H 05/20/19 05/20/19 History Gabapentin 600 mg PO TID 05/20/19 05/20/19 History Losartan Potassium 100 mg PO DAILY 05/20/19 05/20/19 History Sulfamethox-Tmp 800-160Mg [Bactrim 1 tab PO BID 05/20/19 05/20/19 History DS 800-160 mg] hydrOXYzine HCL [Atarax] 25 mg PO HS PRN 05/20/19 05/20/19 History Allergies Allergy/AdvReac Type Severity Reaction Status Date / Time No Known Allergies Allergy Verified 05/20/19 19:01 Physical Exam Vitals: Vital Signs Temp Pulse Pulse Resp BP BP Pulse Ox 05/21/19 02:19 98.2 F 53 L 14 158/91 99 05/20/19 19:05 98.0 F 70 17 104/77 93 L 05/20/19 18:10 18 05/20/19 18:02 98.1 F 105 H 18 151/65 96 05/20/19 15:52 96 20 132/93 98 05/20/19 14:06 98.4 F 121 H 22 131/92 97 Intake and Output 05/20/19 05/21/19 05/21/19 22:59 06:59 14:59 Intake Total 800 Balance 800 Intake: Intake, IV Titration 800 Amount Sodium Chloride 0.9% 1, 800 000 ml @ 100 mls/hr IV . Q10H [facility] Rx#:[id number] Other: Voiding Method Toilet # Voids 4 3 Weight 72.575 kg GENERAL: The patient is alert and oriented x3, not in any acute distress. Well developed, well nourished. HEENT: Pupils are round and equally reacting to light. EOMI. No scleral icterus. No conjunctival pallor. Normocephalic, atraumatic. No pharyngeal erythema. No thyromegaly. CARDIOVASCULAR: S1 and S2 present. No murmurs, rubs, or gallops. PULMONARY: Chest is clear to auscultation, no wheezing or crackles. ABDOMEN: Soft, nontender, nondistended, normoactive bowel sounds. No palpable organomegaly. MUSCULOSKELETAL: No joint swelling or deformity. -EXTREMITIES: No cyanosis, clubbing, or pedal edema. Right foot cellulitis with erythema, swelling and tenderness. Slight tremor related to alcohol withdrawal NEUROLOGICAL: Gross neurological examination did not reveal any focal deficits. SKIN: No rashes. No petechiae Results CBC & Chem 7: 05/20/19 14:47 05/21/19 11:28 Labs: Abnormal Lab Results - Last 24 Hours (Table) 05/20/19 05/20/19 05/20/19 Range/Units 14:47 14:47 20:57 WBC 10.9 H (3.8-10.6) k/uL RBC 3.59 L (4.30-5.90) m/uL Hgb 10.4 L (13.0-17.5) gm/dL Hct 32.5 L (39.0-53.0) % Plt Count 677 H D (150-450) k/uL Neutrophils # 8.7 H (1.3-7.7) k/uL Potassium 5.5 H (3.5-5.1) mmol/L Chloride 110 H (98-107) mmol/L BUN 95 H (9-20) mg/dL Creatinine 2.59 H (0.66-1.25) mg/dL Glucose 196 H (74-99) mg/dL POC Glucose (mg/dL) 213 H (75-99) mg/dL Calcium 10.3 H (8.4-10.2) mg/dL 05/21/19 Range/Units 07:04 WBC (3.8-10.6) k/uL RBC (4.30-5.90) m/uL Hgb (13.0-17.5) gm/dL Hct (39.0-53.0) % Plt Count (150-450) k/uL Neutrophils # (1.3-7.7) k/uL Potassium (3.5-5.1) mmol/L Chloride (98-107) mmol/L BUN (9-20) mg/dL Creatinine (0.66-1.25) mg/dL Glucose (74-99) mg/dL POC Glucose (mg/dL) 190 H (75-99) mg/dL Calcium (8.4-10.2) mg/dL Microbiology - Last 24 Hours (Table) 05/20/19 16:54 Gram Stain - Preliminary Foot - Right Wound Culture - Preliminary Thrombosis Risk Factor Assmnt - Choose All That Apply Any of the Below Risk Factors Present?: Yes Each Factor Represents 1 point: Age 41-60 years, Obesity (BMI >25), Swollen legs (current) Other Risk Factors: No Other congenital or acquired thrombophilia - If yes, enter type in comment: No Thrombosis Risk Factor Assessment Total Risk Factor Score: 3 Thrombosis Risk Factor Assessment Level: Moderate Risk Assessment and Plan Assessment: Right foot cellulitis related to diabetes mellitus, present on admission Acute kidney injury, mostly secondary to obstructive uropathy Alcohol abuse Diabetes mellitus Hypertension Paroxysmal atrial fibrillation not on anticoagulation Plan: This is a pleasant 58 years old male who presents with diabetic right foot cellulitis, acute kidney injury. Follow-up antibiotics as per ID recommendation. Continue with IV hydration. Consult nephrology and check urine analysis. Discontinue ibuprofen. Hold diuretics and metformin Decrease doses of narcotics on gabapentin, hold losartan. Discontinue Bactrim. Start Flomax, continue with Nguyen catheter. Continue with CIWA protocol and thiamine . Consult wound care and Doppler of the lower extremities Labs and medication were reviewed.. Continue same treatment. Continue with symptomatic treatment. Resume home medication. Monitor lytes and vitals. DVT and GI prophylaxis. Further recommendations of the clinical course of the patient DVT prophylaxis: Subcutaneous heparin GI Prophylaxis: Pepcid PT/OT: Pending Prognosis is guarded
[2019-05-21 16:38] LABS: Glucose,Whole Blood 162 mg/dL (75-99)
[2019-05-21] MEDS: THIAMINE 100 MG TAB PO SCH (17:10)
[2019-05-21 20:45] LABS: Glucose,Whole Blood 170 mg/dL (75-99)
[2019-05-21] MEDS ORDERED: INSULIN DETEMIR (LEVEMIR) 100 UNIT/ML SYR SQ SCH (21:00)
[2019-05-21 22:00] LABS: Amphetamine Screen,Urine Not Detected (NotDetected); Barbiturate Screen,Urine Not Detected (NotDetected); Benzodiazepines Screen,Urine Not Detected (NotDetected); Cocaine Screen,Urine Not Detected (NotDetected); Methadone Screen, Urine Not Detected (NotDetected); Opiate Screen,Urine Detected (NotDetected); Oxycodone Screen, Urine Not Detected (NotDetected); Phencyclidine Screen,Urine Not Detected (NotDetected); Tricyclic Antidepressant,Urine Not Detected (NotDetected); Urn Cannabinoid Scrn Not Detected (NotDetected)
--- NOTE | 2019-05-21 22:30 | P.CONS ---
History of Present Illness - Reason for Consult Consult date: 05/21/19 right foot cellulitis Requesting physician: Bentley E Sheet - Chief Complaint right foot swelling and redness x weeks - History of Present Illness Patient is 85-year-old male presenting to the ER yesterday afternoon with chief complaint of right wrist pain and swelling apparently started about 3 days prior to presentation to hospital daily has become progressively worse started at the wrist seem to have spread to the dorsum of his left hand patient denies having history of trauma he has swelling and discomfort more of a dull aching pain to the out of 10 and radiation apparently did have history of gout and previously did have some similar symptom with the symptom the patient was evaluated by the ER physician on arrival to the ER patient has been afebrile patient did have a normal white count CRP was elevated 154 uric acid was 5.5 patient did have x-rays of the wrist which suggest 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 Review of Systems Positive point has been mentioned in HPI rest of the systems are negative Past Medical History Past Medical History: Atrial Fibrillation, COPD, Diabetes Mellitus, Hypertension Additional Past Medical History / Comment(s): PT STATES HX BRONCHITIS.,lt hip post op infection-now healed History of Any Multi-Drug Resistant Organisms: None Reported Past Surgical History: Appendectomy, Joint Replacement, Orthopedic Surgery Additional Past Surgical History / Comment(s): L Index FINGER AMPUTATED FOR OSTEOMYLETIS,CATARACTS, CARPAL TUNNEL (L). LTotal hip-I&D x 2 Past Anesthesia/Blood Transfusion Reactions: No Reported Reaction Additional Past Anesthesia/Blood Transfusion Reaction / Comm: no hx blood tra nsfusion Past Psychological History: No Psychological Hx Reported Smoking Status: Former smoker Past Alcohol Use History: Daily, Heavy Additional Past Alcohol Use History / Comment(s): QUIT SMOKING 2013. SMOKED 1PPD FOR 25-30 YEARS. DRINKS 5 tall boy BEERS DAILY. Past Drug Use History: None Reported Additional Drug Use History / Comment(s): STATES OCCASIONAL MARIJUANA USE. - Past Family History Father Additional Family Medical History / Comment(s): of old age Mother Family Medical History: Cancer, Diabetes Mellitus Additional Family Medical History / Comment(s): BREAST CA Medications and Allergies Home Medications Medication Instructions Recorded Confirmed Type Hydrocodone/Acetaminophen 1 tab PO TID 11/04/15 05/20/19 History [Hydrocodone-Acetamin 7.5-325] metFORMIN HCL 1,000 mg PO BID 02/27/16 05/20/19 History Atorvastatin [Lipitor] 80 mg PO DAILY 01/29/19 05/20/19 History Hydrochlorothiazide [Hydrodiuril] 25 mg PO DAILY 01/29/19 05/20/19 History Insulin Glargine,Hum.rec.anlog 35 unit SQ HS 01/29/19 05/20/19 History [Lantus Solostar] Ipratropium-Albuterol Nebulize 3 ml INHALATION RT-Q4H 01/29/19 05/20/19 History [Duoneb 0.5 mg-3 mg/3 ml Soln] Metoprolol Tartrate [Lopressor] 100 mg PO BID 01/29/19 05/20/19 History glipiZIDE [Glucotrol] 20 mg PO BID 01/29/19 05/20/19 History Budesonide 1 mg INHALATION RT-Q6H PRN 05/20/19 05/20/19 History Furosemide [Lasix] 20 mg PO Q48H 05/20/19 05/20/19 History Gabapentin 600 mg PO TID 05/20/19 05/20/19 History Losartan Potassium 100 mg PO DAILY 05/20/19 05/20/19 History Sulfamethox-Tmp 800-160Mg [Bactrim 1 tab PO BID 05/20/19 05/20/19 History DS 800-160 mg] hydrOXYzine HCL [Atarax] 25 mg PO HS PRN 05/20/19 05/20/19 History Allergies Allergy/AdvReac Type Severity Reaction Status Date / Time No Known Allergies Allergy Verified 05/20/19 19:01 Physical Exam Vitals: Vital Signs Temp Pulse Pulse Resp BP Pulse Ox 05/21/19 20:00 98.0 F 98 20 166/96 05/21/19 19:32 102 H 05/21/19 19:23 101 H 05/21/19 17:02 100 05/21/19 16:53 102 H 05/21/19 16:00 19 05/21/19 15:00 98.0 F 104 H 19 132/72 90 L 05/21/19 12:08 96 05/21/19 11:53 88 05/21/19 09:07 92 05/21/19 08:58 86 05/21/19 07:00 98.3 F 102 H 17 156/90 05/21/19 02:19 98.2 F 53 L 14 158/91 99 Intake and Output 05/21/19 05/21/19 05/21/19 06:59 14:59 22:59 Output Total 1600 550 Balance -1600 -550 Output: Urine 1600 550 Other: Voiding Method Indwelling Catheter # Voids 3 Weight 72.575 kg GENERAL DESCRIPTION: Elderly male lying in bed, no distress. No tachypnea or accessory muscle of respiration use. HEENT: Shows Pallor , no scleral icterus. Oral mucous membrane is dry. NECK: Trachea central, no thyromegaly. LUNGS: Unlabored breathing. Clear to auscultation anteriorly. No wheeze or crackle. HEART: S1, S2, regular rate and rhythm. ABDOMEN: Soft, no tenderness , guarding or rigidity EXTREMITIES: Right hand dorsum with swelling mostly marked at the wrist area slightly warm to touch no open wound or any drainage. SKIN: No rash, no masses palpable. NEUROLOGICAL: The patient is awake, alert, oriented x3, mood and affect normal. Results CBC & Chem 7: 05/20/19 14:47 05/21/19 11:28 Labs: Abnormal Lab Results - Last 24 Hours (Table) 05/21/19 05/21/19 05/21/19 Range/Units 07:04 07:10 07:10 Potassium (3.5-5.1) mmol/L Chloride (98-107) mmol/L BUN (9-20) mg/dL Creatinine (0.66-1.25) mg/dL Glucose (74-99) mg/dL POC Glucose (mg/dL) 190 H (75-99) mg/dL Urine Blood Moderate H (Negative) Urine RBC 58 H (0-5) /hpf Uric Acid Crystals Few H (None) /hpf Urine Bacteria Rare H (None) /hpf Urine Mucus Rare H (None) /hpf Urine Opiates Screen Detected H (NotDetected) 05/21/19 05/21/19 05/21/19 Range/Units 11:28 11:28 16:33 Potassium 5.7 H (3.5-5.1) mmol/L Chloride 114 H (98-107) mmol/L BUN 78 H (9-20) mg/dL Creatinine 1.81 H (0.66-1.25) mg/dL Glucose 163 H (74-99) mg/dL POC Glucose (mg/dL) 194 H 162 H (75-99) mg/dL Urine Blood (Negative) Urine RBC (0-5) /hpf Uric Acid Crystals (None) /hpf Urine Bacteria (None) /hpf Urine Mucus (None) /hpf Urine Opiates Screen (NotDetected) 05/21/19 Range/Units 20:43 Potassium (3.5-5.1) mmol/L Chloride (98-107) mmol/L BUN (9-20) mg/dL Creatinine (0.66-1.25) mg/dL Glucose (74-99) mg/dL POC Glucose (mg/dL) 170 H (75-99) mg/dL Urine Blood (Negative) Urine RBC (0-5) /hpf Uric Acid Crystals (None) /hpf Urine Bacteria (None) /hpf Urine Mucus (None) /hpf Urine Opiates Screen (NotDetected) Microbiology - Last 24 Hours (Table) 05/20/19 14:47 Blood Culture - Preliminary Blood No Growth after 24 hours 05/20/19 16:54 Gram Stain - Preliminary Foot - Right Wound Culture - Preliminary Assessment and Plan Assessment: patient with gram-positive bacteremia in this patient presented hospital with r ight hand dorsum swelling and pain in this patient with no fever or elevated white count however did have elevated CRP that apparently proved without any antibiotic initially with concern for possible skin contamination however underlying cellulitis versus septic arthritis of the right wrist not entirely excluded though less likely. (1) Cellulitis of right leg Current Visit: Yes Status: Acute Code(s): L03.115 - CELLULITIS OF RIGHT LOWER LIMB SNOMED Code(s): 220863794 Plan: 1-blood cultures repeated before the first dose of antibiotic to rule out contamination of the initial blood cultures 2-vancomycin pharmacy to dose her with a target trough of 15 while watching her kidney function and Vanco trough closely. We will follow on clinical condition and cultures to further adjust medication if needed Thank you for this consultation we will follow the patient along with you Time with Patient: Greater than 30
[2019-05-22] MEDS: LORazepam 2 MG/ML INJ IV PRN ×7 (00:41→23:17)
[2019-05-22 02:26] LABS: Glucose,Whole Blood 88 mg/dL (75-99)
[2019-05-22] MEDS: IPRATROPIUM-ALBUTEROL 3 ML NEB INHALATION SCH ×5 (04:31→19:10)
[2019-05-22 05:40] LABS: Basophils % (A) 1 %; Eosinophils # (A) 0.3 k/uL (0-0.7); Eosinophils % (A) 4 %; HCT 30.8 % (39.0-53.0); HGB 9.4 gm/dL (13.0-17.5); Hypochromasia Slight; Lymphocytes # (A) 1.3 k/uL (1.0-4.8); Lymphocytes % (A) 16 %; MCH 28.4 pg (25.0-35.0); MCHC 30.4 g/dL (31.0-37.0); MCV 93.5 fL (80.0-100.0); Mean Platelet Volume 7.6; Monocytes # (A) 0.5 k/uL (0-1.0); Monocytes % (A) 6 %; Neutrophils # (A) 5.8 k/uL (1.3-7.7); Neutrophils % (A) 70 %; Platelet Count 651 k/uL (150-450); RDW 13.3 % (11.5-15.5); WBC 8.3 k/uL (3.8-10.6)
[2019-05-22 05:54] LABS: Albumin 3.3 g/dL (3.5-5.0); Magnesium 1.3 mg/dL (1.6-2.3); Potassium 5.2 mmol/L (3.5-5.1); Total Bilirubin 0.2 mg/dL (0.2-1.3); Total Protein 6.3 g/dL (6.3-8.2)
[2019-05-22 06:09] LABS: Glucose,Whole Blood 64 mg/dL (75-99)
[2019-05-22] MEDS: MAGNESIUM SULFATE-D5W PMX 1 GM in DEXTROSE/WATER 1 100ML.BAG IVPB SCH ×3 (06:23→08:17)
[2019-05-22 06:26] LABS: Glucose,Whole Blood 75 mg/dL (75-99)
[2019-05-22] MEDS: MORPHINE SULFATE 4 MG/ML SYRINGE IV PRN ×4 (06:30→23:16)
[2019-05-22] MEDS: INSULIN ASPART (NovoLOG) 100 UNIT/ML VIAL SQ SCH ×4 (06:46→22:36)
[2019-05-22] MEDS: THIAMINE 100 MG TAB PO SCH ×2 (08:17→17:21)
[2019-05-22] MEDS: FAMOTIDINE 20 MG TAB PO SCH (08:18)
[2019-05-22] MEDS: METOPROLOL TARTRATE 50 MG TAB PO SCH ×2 (08:18→22:34)
[2019-05-22] MEDS: HEPARIN SODIUM,PORCINE 5,000 UNIT/ML 1 ML VIAL SQ SCH ×2 (08:18→22:37)
[2019-05-22] MEDS: HYDROcodone/APAP 5-325MG 1 EACH TAB PO PRN ×2 (08:18→15:43)
[2019-05-22] MEDS: GABAPENTIN 300 MG CAP PO SCH ×3 (08:18→22:34)
[2019-05-22] MEDS: ATORVASTATIN 80 MG TAB PO SCH (08:18)
[2019-05-22] MEDS: TAMSULOSIN 0.4 MG CAP.ER.24H PO SCH (08:18)
[2019-05-22] MEDS ORDERED: Magnesium Replacement Protocol 1 EACH MISC MISCELLANE PRN (08:39)
--- NOTE | 2019-05-22 10:18 | P.PN ---
Subjective Patient is seen in follow-up for acute kidney injury. Creatinine is down to 1.28. He was transferred to the intensive care unit for alcohol withdrawals. Oral intake is poor. Nonoliguric. Has a Nguyen catheter for urinary retention. Vital signs are stable. General: The patient appeared well nourished and normally developed. HEENT: Head exam is unremarkable. Neck is without jugular venous distension. LUNGS: Lungs are clear to auscultation and percussion. Breath sounds decreased. HEART: Rate and Rhythm are regular. First and second heart sounds normal. No murmurs, rubs or gallops. ABDOMEN: Abdominal exam reveals normal bowel sounds. Non-tender and non- distended. No evidence of peritonitis. EXTREMITITES: Chronic changes noted. Trace edema. Objective - Vital Signs Vital signs: Vital Signs Temp 98.2 F 05/22/19 04:00 Pulse 108 H 05/22/19 06:00 Resp 23 05/22/19 06:00 BP 153/79 05/22/19 06:00 Pulse Ox 97 05/22/19 06:00 Intake & Output 05/21/19 05/22/19 05/22/19 18:59 06:59 18:59 Intake Total 100 Output Total 2150 470 125 Balance -2150 -370 -125 Weight 72.575 kg Intake: Intake, IV Titration 100 Amount Magnesium Sulfate-D5w Pmx 100 1 gm In Dextrose/Water 1 100ml.bag @ 100 mls/hr IVPB Q1H [facility] Rx#: [id number] Output: Urine 2150 470 125 Other: Voiding Method Indwelling Catheter Indwelling Catheter - Labs CBC & Chem 7: 05/22/19 04:36 05/22/19 04:36 Labs: Abnormal Lab Results - Last 24 Hours (Table) 05/21/19 05/21/19 05/21/19 Range/Units 07:10 11:28 11:28 RBC (4.30-5.90) m/uL Hgb (13.0-17.5) gm/dL Hct (39.0-53.0) % MCHC (31.0-37.0) g/dL Plt Count (150-450) k/uL Sodium (137-145) mmol/L Potassium 5.7 H (3.5-5.1) mmol/L Chloride 114 H (98-107) mmol/L BUN 78 H (9-20) mg/dL Creatinine 1.81 H (0.66-1.25) mg/dL Glucose 163 H (74-99) mg/dL POC Glucose (mg/dL) 194 H (75-99) mg/dL Magnesium (1.6-2.3) mg/dL Albumin (3.5-5.0) g/dL Urine Opiates Screen Detected H (NotDetected) 05/21/19 05/21/19 05/22/19 Range/Units 16:33 20:43 04:36 RBC (4.30-5.90) m/uL Hgb (13.0-17.5) gm/dL Hct (39.0-53.0) % MCHC (31.0-37.0) g/dL Plt Count (150-450) k/uL Sodium 150 H (137-145) mmol/L Potassium 5.2 H (3.5-5.1) mmol/L Chloride 115 H (98-107) mmol/L BUN 58 H (9-20) mg/dL Creatinine 1.28 H (0.66-1.25) mg/dL Glucose 54 L (74-99) mg/dL POC Glucose (mg/dL) 162 H 170 H (75-99) mg/dL Magnesium 1.3 L (1.6-2.3) mg/dL Albumin 3.3 L (3.5-5.0) g/dL Urine Opiates Screen (NotDetected) 05/22/19 05/22/19 Range/Units 04:36 06:06 RBC 3.30 L (4.30-5.90) m/uL Hgb 9.4 L (13.0-17.5) gm/dL Hct 30.8 L (39.0-53.0) % MCHC 30.4 L (31.0-37.0) g/dL Plt Count 651 H (150-450) k/uL Sodium (137-145) mmol/L Potassium (3.5-5.1) mmol/L Chloride (98-107) mmol/L BUN (9-20) mg/dL Creatinine (0.66-1.25) mg/dL Glucose (74-99) mg/dL POC Glucose (mg/dL) 64 L (75-99) mg/dL Magnesium (1.6-2.3) mg/dL Albumin (3.5-5.0) g/dL Urine Opiates Screen (NotDetected) Microbiology - Last 24 Hours (Table) 05/20/19 14:47 Blood Culture - Preliminary Blood No Growth after 24 hours Assessment and Plan Plan: Assessment: 1. Acute kidney injury secondary to urinary retention and Bactrim which will impair creatinine secretion. Creatinine 2.59 on admission and is down to 1.2 today. Baseline creatinine near 1. No proteinuria on UA. No hydronephrosis noted on kidney ultrasound. 2. Right hand cellulitis maintained on antibiotics. 3. Insulin-dependent diabetes mellitus. 4. Benign hypertension. 5. Mild hyperkalemia secondary to acute kidney injury and Bactrim. Better. 6. Hypernatremia secondary to lack of oral water intake. 7. Urinary retention status post Nguyen catheter placement. Also on Flomax. 8. Hypomagnesemia from poor oral intake. Plan: Start D5W at 75 mL an hour. Magnesium being replaced. Avoid nephrotoxins. Continue to hold losartan and diuretics at this time. Repeat electrolytes in the morning.
[2019-05-22] MEDS ORDERED: DEXTROSE 5%-0.2% NACL 1,000 ML IV SCH (10:45)
[2019-05-22] MEDS: DEXTROSE 5% IN WATER 1,000 ML IV SCH ×2 (10:45→10:47)
[2019-05-22 11:48] LABS: Glucose,Whole Blood 125 mg/dL (75-99)
--- NOTE | 2019-05-22 12:16 | P.CNPUL ---
History of Present Illness Consult date: 05/22/19 Reason for consult: other (Acute cellulitis, and alcohol withdrawal) Chief complaint: Right foot swelling and pain for a few weeks History of present illness: This is a 58-year-old white male with history of multiple medical problems including alcohol abuse, chronic atrial fibrillation, COPD, diabetes, hypertension, patient presented to the ER , complaining of right foot infection involving the dorsal aspect of the right foot, and involving the right big toe. Patient was admitted basically with the impression of right foot cellulitis, acute kidney injury, and he was seen by multiple consultants on admission incl uding nephrology and infectious disease. Placed on empirically on antibiotics, x-ray of the foot showed soft tissue swelling consistent with cellulitis. No evidence of osteomyelitis. Chest x-ray showed mostly left hemidiaphragmatic elevation and underlying COPD, no acute process was noted. Patient was initially admitted to the regular medical floor, however because of his agitation requiring Ativan patient was placed on alcohol withdrawal protocol, and transferred to the intensive care units. Remained hemodynamically stable, patient seems to be responding well to Ativan, not requiring any Haldol. Since the patient was transferred to the ICU, I was asked to see him on consultation. Patient is not the greatest historian, denies any shortness of breath cough or wheezing denies any chest pain, his main complaint seems to be related to swelling of the right foot. Considering his renal profile showed evidence of acute kidney injury, patient had ultrasound of the kidneys and came back negative for hydronephrosis. Review of Systems CONSTITUTIONAL: No fever no chills no weight loss. HEENT: Negative CARDIOVASCULAR: Negative PULMONARY: Negative GASTROINTESTINAL: Negative NEUROLOGICAL: Negative HEMATOLOGICAL: Negative GENITOURINARY: Negative MUSCULOSKELETAL/RHEUMATOLOGICAL: As noted in HPI, mostly ulceration and oozing as well as cellulitis of the right foot and right calf region. ENDOCRINE: Negative Psychiatric: Denies any symptoms of depression. Past Medical History Past Medical History: Atrial Fibrillation, COPD, Diabetes Mellitus, Hypertension Additional Past Medical History / Comment(s): PT STATES HX BRONCHITIS.,lt hip post op infection-now healed History of Any Multi-Drug Resistant Organisms: None Reported Past Surgical History: Appendectomy, Joint Replacement, Orthopedic Surgery Additional Past Surgical History / Comment(s): L Index FINGER AMPUTATED FOR OSTEOMYLETIS,CATARACTS, CARPAL TUNNEL (L). LTotal hip-I&D x 2 Past Anesthesia/Blood Transfusion Reactions: No Reported Reaction Additional Past Anesthesia/Blood Transfusion Reaction / Comment(s): no hx blood transfusion Past Psychological History: No Psychological Hx Reported Smoking Status: Former smoker Past Alcohol Use History: Daily, Heavy Additional Past Alcohol Use History / Comment(s): QUIT SMOKING 2013. SMOKED 1PPD FOR 25-30 YEARS. DRINKS 5 tall boy BEERS DAILY. Past Drug Use History: None Reported Additional Drug Use History / Comment(s): STATES OCCASIONAL MARIJUANA USE. - Past Family History Father Additional Family Medical History / Comment(s): of old age Mother Family Medical History: Cancer, Diabetes Mellitus Additional Family Medical History / Comment(s): BREAST CA Medications and Allergies Home Medications Medication Instructions Recorded Confirmed Type Hydrocodone/Acetaminophen 1 tab PO TID 11/04/15 05/20/19 History [Hydrocodone-Acetamin 7.5-325] metFORMIN HCL 1,000 mg PO BID 02/27/16 05/20/19 History Atorvastatin [Lipitor] 80 mg PO DAILY 01/29/19 05/20/19 History Hydrochlorothiazide [Hydrodiuril] 25 mg PO DAILY 01/29/19 05/20/19 History Insulin Glargine,Hum.rec.anlog 35 unit SQ HS 01/29/19 05/20/19 History [Lantus Solostar] Ipratropium-Albuterol Nebulize 3 ml INHALATION RT-Q4H 01/29/19 05/20/19 History [Duoneb 0.5 mg-3 mg/3 ml Soln] Metoprolol Tartrate [Lopressor] 100 mg PO BID 01/29/19 05/20/19 History glipiZIDE [Glucotrol] 20 mg PO BID 01/29/19 05/20/19 History Budesonide 1 mg INHALATION RT-Q6H PRN 05/20/19 05/20/19 History Furosemide [Lasix] 20 mg PO Q48H 05/20/19 05/20/19 History Gabapentin 600 mg PO TID 05/20/19 05/20/19 History Losartan Potassium 100 mg PO DAILY 05/20/19 05/20/19 History Sulfamethox-Tmp 800-160Mg [Bactrim 1 tab PO BID 05/20/19 05/20/19 History DS 800-160 mg] hydrOXYzine HCL [Atarax] 25 mg PO HS PRN 05/20/19 05/20/19 History Allergies Allergy/AdvReac Type Severity Reaction Status Date / Time No Known Allergies Allergy Verified 05/20/19 19:01 Physical Exam Vitals: Vital Signs Temp Pulse Pulse Resp BP BP Pulse Ox 05/22/19 10:00 86 18 156/110 98 05/22/19 09:00 98 18 115/53 97 05/22/19 08:00 97.7 F 101 H 21 133/119 97 05/22/19 07:00 104 H 96 05/22/19 06:00 108 H 23 153/79 97 05/22/19 05:30 97 21 96 05/22/19 05:00 96 23 143/78 95 05/22/19 04:42 96 05/22/19 04:31 100 05/22/19 04:30 98 22 95 05/22/19 04:00 98.2 F 101 H 16 142/83 96 05/22/19 03:30 98 23 142/83 95 05/22/19 03:00 96 21 153/113 96 05/22/19 02:30 98.2 F 102 H 31 H 159/113 95 05/22/19 01:51 88 18 154/84 05/22/19 00:03 100 05/21/19 23:53 100 05/21/19 20:00 98.0 F 98 20 166/96 05/21/19 19:32 102 H 05/21/19 19:23 101 H 05/21/19 17:02 100 05/21/19 16:53 102 H 05/21/19 16:00 19 05/21/19 15:00 98.0 F 104 H 19 132/72 90 L 05/21/19 12:08 96 Intake and Output 05/21/19 05/22/19 05/22/19 22:59 06:59 14:59 Intake Total 100 310 Output Total 550 470 535 Balance -550 370 -225 Intake: IV 250 Dextrose 5%-0.2% NaCl 1, 100 000 ml @ 100 mls/hr IV . Q10H [facility] Rx#:[id number] Magnesium Sulfate-D5w Pmx 100 1 gm In Dextrose/Water 1 100ml.bag @ 100 mls/hr IVPB Q1H [facility] Rx#: [id number] ceFAZolin 2 gm In Sodium 50 Chloride 0.9% 50 ml @ 100 mls/hr IVPB Q8HR [facility] Rx# :[id number] Intake, IV Titration 100 Amount Magnesium Sulfate-D5w Pmx 100 1 gm In Dextrose/Water 1 100ml.bag @ 100 mls/hr IVPB Q1H [facility] Rx#: [id number] Oral 60 Output: Urine 550 470 535 Other: Voiding Method Indwelling Catheter Indwelling Catheter Physical Exam: Revealed a 58-year-old white male in no distress. Head: Atraumatic, normocephalic. HEENT:[Neck is supple.] [No neck masses.] [No thyromegaly.] [No JVD.] Chest: [Clear throughout, no crackles, no rhonchi, no wheezes.] Cardiac Exam: [Normal S1 and S2, no S3 gallop, no murmur.] Abdomen: [Soft, nontender, no megaly, no rebound, no guarding, normal bowel sounds.] Extremities: [No clubbing, no edema, no cyanosis.] There is however evidence of significant swelling and erythema and serous drainage from the dorsal aspect of the right foot, sterile dressing has been applied over the period and there is also evidence of erythema extending from the right foot although it up to the area below the knee. Neurological Exam: [No focal neurologic deficit.] Oriented 3. Psychiatric: Normal mood, affect and poor mental status, patient is not a great historian regarding his illness. Lymphatics: No lymphadenopathy Skin: Areas of cellulitis and erythema noted involving the right foot and right lower extremity. Results - Laboratory Findings CBC and BMP: 05/22/19 04:36 05/22/19 04:36 PT/INR, D-dimer PT 10.8 sec (9.0-12.0) 05/20/19 14:47 INR 1.0 (<1.2) 05/20/19 14:47 Abnormal lab findings: Abnormal Labs 05/20/19 05/20/19 05/20/19 14:47 14:47 20:57 WBC 10.9 H RBC 3.59 L Hgb 10.4 L Hct 32.5 L MCHC Plt Count 677 H D Neutrophils # 8.7 H Sodium Potassium 5.5 H Chloride 110 H BUN 95 H Creatinine 2.59 H Glucose 196 H POC Glucose (mg/dL) 213 H Calcium 10.3 H Magnesium Albumin Urine Blood Urine RBC Uric Acid Crystals Urine Bacteria Urine Mucus Urine Opiates Screen 05/21/19 05/21/19 05/21/19 07:04 07:10 07:10 WBC RBC Hgb Hct MCHC Plt Count Neutrophils # Sodium Potassium Chloride BUN Creatinine Glucose POC Glucose (mg/dL) 190 H Calcium Magnesium Albumin Urine Blood Moderate H Urine RBC 58 H Uric Acid Crystals Few H Urine Bacteria Rare H Urine Mucus Rare H Urine Opiates Screen Detected H 05/21/19 05/21/19 05/21/19 11:28 11:28 16:33 WBC RBC Hgb Hct MCHC Plt Count Neutrophils # Sodium Potassium 5.7 H Chloride 114 H BUN 78 H Creatinine 1.81 H Glucose 163 H POC Glucose (mg/dL) 194 H 162 H Calcium Magnesium Albumin Urine Blood Urine RBC Uric Acid Crystals Urine Bacteria Urine Mucus Urine Opiates Screen 05/21/19 05/22/19 05/22/19 20:43 04:36 04:36 WBC RBC 3.30 L Hgb 9.4 L Hct 30.8 L MCHC 30.4 L Plt Count 651 H Neutrophils # Sodium 150 H Potassium 5.2 H Chloride 115 H BUN 58 H Creatinine 1.28 H Glucose 54 L POC Glucose (mg/dL) 170 H Calcium Magnesium 1.3 L Albumin 3.3 L Urine Blood Urine RBC Uric Acid Crystals Urine Bacteria Urine Mucus Urine Opiates Screen 05/22/19 05/22/19 06:06 11:46 WBC RBC Hgb Hct MCHC Plt Count Neutrophils # Sodium Potassium Chloride BUN Creatinine Glucose POC Glucose (mg/dL) 64 L 125 H Calcium Magnesium Albumin Urine Blood Urine RBC Uric Acid Crystals Urine Bacteria Urine Mucus Urine Opiates Screen - Diagnostic Findings Chest x-ray: image reviewed (As noted in HPI.) Additional studies: X-rays of right foot as noted in HPI. Assessment and Plan Assessment: Impression: Acute right foot cellulitis Diabetic foot ulcers involving the dorsal aspect of the right foot. Alcohol abuse and impending alcohol withdrawal Benign essential hypertension History of paroxysmal atrial fibrillation Acute kidney injury secondary to sepsis secondary to cellulitis Acute sepsis. No evidence of septic shock. Recommendation: Agree with the present course of treatment including Antibiotics as per infectious disease. IV fluids in the form of D5 W-to treat his hypernatremia Cautious hydration with D5W Monitor electrolytes and renal profile CIWA protocol. GI and DVT prophylaxis Consider outpatient referral to the wound care center. Consider testing the patient out of the ICU, especially if his out call withdrawal which is presently mild and manageable could be managed on the floor. Time with Patient: Greater than 30
--- NOTE | 2019-05-22 14:42 | P.PN ---
Subjective This is a pleasant 58 years old male with past medical history of COPD, hypertension, diabetes mellitus, atrial fibrillation not on anticoagulation. Patient presents because of pain and swelling in his right lower extremity, he was taking Bactrim as an outpatient. So he was admitted with diabetic cellulitis. Also patient drinks about 6-9 weeks size beers every day for many months and years Vital signs stable, patient is afebrile. Labs showing mild leukocytosis of 10.9 K, platelets 677, hemoglobin 10.4, INR 1.0, potassium 5.5, creatinine 2.5, baseline is 0.7-1.1, sugar around 200, liver enzymes not elevated. Once culture is pending. Chest x-ray: No acute process, leg x-ray: Soft tissue swelling EKG showing sinus tachycardia at [address]-T changes. On admission patient was started on Zosyn and IV vancomycin and normal saline and 100 mL per hour Infectious disease consult was placed from emergency room p Bladder scan was checked and showing postvoid residual of 500 mL which was obtained the same amount after Nguyen catheter was placed Patient is also is heavy drinker and drinks 8-9 beers every day for weeks and months MAPS was checked and patient is on gabapentin 600 mg 3 times a day and hydrocodone 7.5 mg 3 times a day 05/22/2019 Patient yesterday went into severe withdrawal symptoms last night and he was transferred to the ICU for further monitoring and possible visit has been drip, however he did not need the drip instead he was started on D5W for hypernatremia on 150, throughout the day since morning he was confused, agitated and combative at time, however when I saw him this afternoon he was more calm, he was alert and oriented to place and person, he knew why he is in the hospital. However as per staff he easily gets agitated and confused. Sitter at bedside for safety. Librium and it and to do CAT scan of the brain to rule out intracranial lesion. Vitals are stable. Labs reviewed and his sodium is 150, potassium 5.2 and creatinine is down to 1.2, sugar was 64 this morning, magnesium 1.3 which is been replaced Objective - Vital Signs Vital signs: Vital Signs Temp 97.7 F 05/22/19 08:00 Pulse 86 05/22/19 10:00 Resp 18 05/22/19 10:00 BP 156/110 03/21/20 10:00 Pulse Ox 98 05/22/19 10:00 Intake & Output 05/21/19 05/22/19 05/22/19 18:59 06:59 18:59 Intake Total 100 310 Output Total 2150 470 660 Balance -2150 -370 -350 Weight 72.575 kg Intake: IV 250 Dextrose 5%-0.2% NaCl 1, 100 000 ml @ 100 mls/hr IV . Q10H [facility] Rx#:[id number] Magnesium Sulfate-D5w Pmx 100 1 gm In Dextrose/Water 1 100ml.bag @ 100 mls/hr IVPB Q1H [facility] Rx#: [id number] ceFAZolin 2 gm In Sodium 50 Chloride 0.9% 50 ml @ 100 mls/hr IVPB Q8HR [facility] Rx# :[id number] Intake, IV Titration 100 Amount Magnesium Sulfate-D5w Pmx 100 1 gm In Dextrose/Water 1 100ml.bag @ 100 mls/hr IVPB Q1H [facility] Rx#: [id number] Oral 60 Output: Urine 2150 470 660 Other: Voiding Method Indwelling Catheter Indwelling Catheter # Voids 3 - Exam GENERAL: The patient is alert and oriented x3, not in any acute distress. Well developed, well nourished. HEENT: Pupils are round and equally reacting to light. EOMI. No scleral icterus. No conjunctival pallor. Normocephalic, atraumatic. No pharyngeal erythema. No thyromegaly. CARDIOVASCULAR: S1 and S2 present. No murmurs, rubs, or gallops. PULMONARY: Chest is clear to auscultation, no wheezing or crackles. ABDOMEN: Soft, nontender, nondistended, normoactive bowel sounds. No palpable organomegaly. MUSCULOSKELETAL: No joint swelling or deformity. -EXTREMITIES: No cyanosis, clubbing, or pedal edema. Right foot cellulitis with erythema, swelling and tenderness. Slight tremor related to alcohol withdrawal NEUROLOGICAL: Gross neurological examination did not reveal any focal deficits. SKIN: No rashes. No petechiae - Labs CBC & Chem 7: 05/22/19 04:36 05/22/19 04:36 Labs: Abnormal Lab Results - Last 24 Hours (Table) 05/21/19 05/21/19 05/21/19 Range/Units 07:10 16:33 20:43 RBC (4.30-5.90) m/uL Hgb (13.0-17.5) gm/dL Hct (39.0-53.0) % MCHC (31.0-37.0) g/dL Plt Count (150-450) k/uL Sodium (137-145) mmol/L Potassium (3.5-5.1) mmol/L Chloride (98-107) mmol/L BUN (9-20) mg/dL Creatinine (0.66-1.25) mg/dL Glucose (74-99) mg/dL POC Glucose (mg/dL) 162 H 170 H (75-99) mg/dL Magnesium (1.6-2.3) mg/dL Albumin (3.5-5.0) g/dL Urine Opiates Screen Detected H (NotDetected) 05/22/19 05/22/19 05/22/19 Range/Units 04:36 04:36 06:06 RBC 3.30 L (4.30-5.90) m/uL Hgb 9.4 L (13.0-17.5) gm/dL Hct 30.8 L (39.0-53.0) % MCHC 30.4 L (31.0-37.0) g/dL Plt Count 651 H (150-450) k/uL Sodium 150 H (137-145) mmol/L Potassium 5.2 H (3.5-5.1) mmol/L Chloride 115 H (98-107) mmol/L BUN 58 H (9-20) mg/dL Creatinine 1.28 H (0.66-1.25) mg/dL Glucose 54 L (74-99) mg/dL POC Glucose (mg/dL) 64 L (75-99) mg/dL Magnesium 1.3 L (1.6-2.3) mg/dL Albumin 3.3 L (3.5-5.0) g/dL Urine Opiates Screen (NotDetected) 05/22/19 Range/Units 11:46 RBC (4.30-5.90) m/uL Hgb (13.0-17.5) gm/dL Hct (39.0-53.0) % MCHC (31.0-37.0) g/dL Plt Count (150-450) k/uL Sodium (137-145) mmol/L Potassium (3.5-5.1) mmol/L Chloride (98-107) mmol/L BUN (9-20) mg/dL Creatinine (0.66-1.25) mg/dL Glucose (74-99) mg/dL POC Glucose (mg/dL) 125 H (75-99) mg/dL Magnesium (1.6-2.3) mg/dL Albumin (3.5-5.0) g/dL Urine Opiates Screen (NotDetected) Microbiology - Last 24 Hours (Table) 05/20/19 14:47 Blood Culture - Preliminary Blood No Growth after 24 hours Assessment and Plan Assessment: -Right foot cellulitis related to diabetes mellitus, present on admission -Acute kidney injury, mostly secondary to obstructive uropathy -Acute delirium and metabolic encephalopathy secondary to many factors, related to his infection, renal failure, renal retention home hypernatremia, acute withdrawal -Alcohol abuse , associated with delirium tremens secondary to local withdrawal Hypernatremia- -Diabetes mellitus -Hypertension -Paroxysmal atrial fibrillation not on anticoagulation Plan: This is a pleasant 58 years old male who presents with diabetic right foot cellulitis, acute kidney injury. Follow-up antibiotics as per ID recommendation. Continue with IV hydration. Pulmonary/the care of the case. Do CT of the brain.add Librium. Discontinue ibuprofen. Hold diuretics and metformin Decrease doses of narcotics on gabapentin, hold losartan. Discontinue Bactrim. Start Flomax, continue with Nguyen catheter. Continue with CIWA protocol and thiamine . Consult wound care and Doppler of the lower extremities Labs and medication were reviewed.. Continue same treatment. Continue with symptomatic treatment. Resume home medication. Monitor lytes and vitals. DVT and GI prophylaxis. Further recommendations of the clinical course of the patient DVT prophylaxis: Subcutaneous heparin GI Prophylaxis: Pepcid PT/OT: Pending Prognosis is guarded
[2019-05-22] MEDS: chlordiazePOXIDE 25 MG CAP PO SCH ×2 (15:43→22:34)
[2019-05-22 16:47] LABS: Glucose,Whole Blood 146 mg/dL (75-99)
--- NOTE | 2019-05-22 18:30 | PN ---
PROGRESS NOTE . DATE OF SERVICE: May 22, 2019. REASON FOR FOLLOWUP: Right big toe wound with right lower extremity cellulitis. INTERVAL HISTORY: The patient has been transferred to the ICU because of DTs. The patient is hemodynamically stable not requiring pressor support. The patient remains lethargic. Has received Ativan. No vomiting or any diarrhea has been reported by the nursing staff. PHYSICAL EXAMINATION: Blood pressure 115/53 with a pulse of 98. Temperature 97.7. He is 97% on 2 L nasal cannula. General description is a middle-aged male lying in bed in no distress. Respiratory system: Unlabored breathing. Clear to auscultation anteriorly. Heart S1, S2. Regular rate and rhythm. Abdomen is soft, no tenderness. Right leg redness is improved. Right leg did have a deep wound draining out of the top of the wound. LABS: Hemoglobin is 9.4, white count 8.3, BUN of 58, creatinine 1.28. Wound cultures currently pending. Blood culture so far negative. DIAGNOSTIC IMPRESSION AND PLAN: Patient with right big toe wound with secondary cellulitis extending to his right leg. In view of extensive deep wound we will request consultation from vascular surgery, if the patient needs debridement or amputation. We will continue with the Cefazolin and this will be adjusted further based on results of the culture report. Local care advised with [facility] switching daily. Continue supportive care. MMODL / IJN: [id number] /
[2019-05-22] MEDS ORDERED: LORazepam 2 MG/ML INJ IV STA (18:55)
--- NOTE | 2019-05-22 19:57 | XR ---
EXAMINATION TYPE: XR chest 1V DATE OF EXAM: 05/22/2019 COMPARISON: 05/20/2019 HISTORY: Tachypnea TECHNIQUE: Single view FINDINGS: There is no heart failure nor confluent pneumonic infiltrate. There is slight blunting left costophrenic angle. Bony thorax is intact. IMPRESSION: Normal pleural reaction at the left lung base improved compared to last exam. No heart fa ilure.
[2019-05-22 22:36] LABS: Glucose,Whole Blood 197 mg/dL (75-99)
[2019-05-22] MEDS: INSULIN DETEMIR (LEVEMIR) 100 UNIT/ML SYR SQ SCH (22:40)
--- NOTE | 2019-05-22 23:48 | CT ---
EXAMINATION TYPE: CT brain wo con DATE OF EXAM: 05/22/2019 COMPARISON: None HISTORY: Jack Erwinsuion CT DLP: 1101.4 mGycm Automated exposure control for dose reduction was used. There is some cerebral cortical atrophy. There is no mass effect nor midline shift. There is no sign of intracranial hemorrhage. There is evidence of old left occipital lobe cortical infarct with cortic al thinning and enlargement of the occipital horn left lateral ventricle. Calvarium is intact. The sk ull base is intact. IMPRESSION: Cerebral atrophy. 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 No acute intracranial abnormality.
[2019-05-23] MEDS: IPRATROPIUM-ALBUTEROL 3 ML NEB INHALATION SCH ×6 (00:17→21:20)
[2019-05-23] MEDS: DEXTROSE 5% IN WATER 1,000 ML IV SCH (00:48)
[2019-05-23 02:01] LABS: Glucose,Whole Blood 144 mg/dL (75-99)
[2019-05-23] MEDS: LORazepam 2 MG/ML INJ IV PRN ×9 (04:52→23:42)
[2019-05-23 05:02] LABS: Hypochromasia Moderate; MCH 28.8 pg (25.0-35.0); MCHC 30.2 g/dL (31.0-37.0); MCV 95.5 fL (80.0-100.0); Mean Platelet Volume 7.5; Platelet Count 615 k/uL (150-450); RBC 3.46 m/uL (4.30-5.90); RDW 13.4 % (11.5-15.5); WBC 7.3 k/uL (3.8-10.6)
[2019-05-23 05:16] LABS: African American GFR (CKD) >90 (>60 ml/min/1.73 sqM); Anion Gap 4 mmol/L; Blood Urea Nitrogen 39 mg/dL (9-20); Calcium 10.1 mg/dL (8.4-10.2); Carbon Dioxide 30 mmol/L (22-30); Chloride 113 mmol/L (98-107); Glucose 140 mg/dL (74-99); Magnesium 1.4 mg/dL (1.6-2.3); Non-African American GFR(CKD) 86 (>60 ml/min/1.73 sqM); Potassium 5.6 mmol/L (3.5-5.1); Sodium 147 mmol/L (137-145)
[2019-05-23 06:05] LABS: Band Neutrophils % 5 %; Eosinophils # (M) 0.29 k/uL (0-0.7); Lymphocytes # (M) 1.39 k/uL (1.0-4.8); Monocytes # (M) 0.58 k/uL (0-1.0); Neutrophils % (M) 64 %; Nucleated Red Blood Cells 0 /100 WBC (0-0); Total Cells Counted 100
[2019-05-23 06:09] LABS: Anisocytosis (M) Present; Large Platelets Present; Polychromasia Present
[2019-05-23 06:22] LABS: Glucose,Whole Blood 156 mg/dL (75-99)
[2019-05-23] MEDS: INSULIN ASPART (NovoLOG) 100 UNIT/ML VIAL SQ SCH ×4 (06:35→23:52)
[2019-05-23] MEDS: MAGNESIUM SULFATE-D5W PMX 1 GM in DEXTROSE/WATER 1 100ML.BAG IVPB SCH ×3 (06:36→10:11)
[2019-05-23] MEDS: METOPROLOL TARTRATE 50 MG TAB PO SCH ×3 (09:05→20:13)
[2019-05-23] MEDS: chlordiazePOXIDE 25 MG CAP PO SCH ×4 (09:05→20:14)
[2019-05-23] MEDS: HEPARIN SODIUM,PORCINE 5,000 UNIT/ML 1 ML VIAL SQ SCH ×2 (09:08→20:18)
[2019-05-23] MEDS: THIAMINE 100 MG TAB PO SCH ×2 (10:08→17:29)
[2019-05-23] MEDS: TAMSULOSIN 0.4 MG CAP.ER.24H PO SCH (10:09)
[2019-05-23] MEDS ORDERED: INSULIN REGULAR 100 UNIT/ML VIAL IV ONE (10:10)
[2019-05-23] MEDS: FAMOTIDINE 20 MG TAB PO SCH (10:10)
[2019-05-23] MEDS: ATORVASTATIN 80 MG TAB PO SCH (10:10)
[2019-05-23] MEDS: GABAPENTIN 300 MG CAP PO SCH ×3 (10:10→20:14)
--- NOTE | 2019-05-23 10:26 | P.PN ---
Subjective Patient is seen in follow-up for acute kidney injury. Creatinine is down to 0.96.. He was transferred to the intensive care unit for alcohol withdrawals. Remains agitated. Sitter present. Oral intake is poor. Nonoliguric. Has a Nguyen catheter for urinary retention. Vital signs are stable. General: The patient appeared well nourished and normally developed. HEENT: Head exam is unremarkable. Neck is without jugular venous distension. LUNGS: Lungs are clear to auscultation and percussion. Breath sounds decreased. HEART: Rate and Rhythm are regular. First and second heart sounds normal. No murmurs, rubs or gallops. ABDOMEN: Abdominal exam reveals normal bowel sounds. Non-tender and non- distended. No evidence of peritonitis. EXTREMITITES: Chronic changes noted. Trace edema. Objective - Vital Signs Vital signs: Vital Signs Temp 98.0 F 05/23/19 08:00 Pulse 94 05/23/19 08:00 Resp 24 05/23/19 08:00 BP 160/100 05/23/19 08:00 Pulse Ox 93 L 05/23/19 08:00 Intake & Output 05/22/19 05/23/19 05/23/19 18:59 06:59 18:59 Intake Total 510 1150 400 Output Total 1110 1400 425 Balance -600 -250 -25 Weight 115.9 kg Intake: IV 450 1150 400 Dextrose 5% in Water 1, 1100 400 000 ml @ 75 mls/hr IV . [id number] TIFFANI Rx#:[id number] Dextrose 5%-0.2% NaCl 1, 300 000 ml @ 100 mls/hr IV . Q10H TIFFANI Rx#:[id number] Magnesium Sulfate-D5w Pmx 100 1 gm In Dextrose/Water 1 100ml.bag @ 100 mls/hr IVPB Q1H TIFFANI Rx#: [id number] ceFAZolin 2 gm In Sodium 50 50 Chloride 0.9% 50 ml @ 100 mls/hr IVPB Q8HR TIFFANI Rx# :[id number] Oral 60 Output: Urine 1110 1400 425 Other: Voiding Method Indwelling Catheter Indwelling Catheter # Voids 3 - Labs CBC & Chem 7: 05/23/19 04:23 05/23/19 04:23 Labs: Abnormal Lab Results - Last 24 Hours (Table) 05/22/19 05/22/19 05/22/19 Range/Units 11:46 16:46 22:33 RBC (4.30-5.90) m/uL Hgb (13.0-17.5) gm/dL Hct (39.0-53.0) % MCHC (31.0-37.0) g/dL Plt Count (150-450) k/uL Sodium (137-145) mmol/L Potassium (3.5-5.1) mmol/L Chloride (98-107) mmol/L BUN (9-20) mg/dL Glucose (74-99) mg/dL POC Glucose (mg/dL) 125 H 146 H 197 H (75-99) mg/dL Magnesium (1.6-2.3) mg/dL 05/23/19 05/23/19 05/23/19 Range/Units 02:00 04:23 04:23 RBC 3.46 L (4.30-5.90) m/uL Hgb 10.0 L (13.0-17.5) gm/dL Hct 33.0 L (39.0-53.0) % MCHC 30.2 L (31.0-37.0) g/dL Plt Count 615 H (150-450) k/uL Sodium 147 H (137-145) mmol/L Potassium 5.6 H (3.5-5.1) mmol/L Chloride 113 H (98-107) mmol/L BUN 39 H (9-20) mg/dL Glucose 140 H (74-99) mg/dL POC Glucose (mg/dL) 144 H (75-99) mg/dL Magnesium 1.4 L (1.6-2.3) mg/dL 05/23/19 Range/Units 06:20 RBC (4.30-5.90) m/uL Hgb (13.0-17.5) gm/dL Hct (39.0-53.0) % MCHC (31.0-37.0) g/dL Plt Count (150-450) k/uL Sodium (137-145) mmol/L Potassium (3.5-5.1) mmol/L Chloride (98-107) mmol/L BUN (9-20) mg/dL Glucose (74-99) mg/dL POC Glucose (mg/dL) 156 H (75-99) mg/dL Magnesium (1.6-2.3) mg/dL Microbiology - Last 24 Hours (Table) 05/20/19 16:54 Gram Stain - Final Foot - Right Wound Culture - Final Strep agalactiae - (group b) 05/20/19 14:47 Blood Culture - Preliminary Blood No Growth after 48 hours Assessment and Plan Plan: Assessment: 1. Acute kidney injury secondary to urinary retention and Bactrim which will impair creatinine secretion. Creatinine 2.59 on admission and is down to 0.96 today. Baseline creatinine near 1. No proteinuria on UA. No hydronephrosis noted on kidney ultrasound. 2. Right hand cellulitis maintained on antibiotics. 3. Insulin-dependent diabetes mellitus. 4. Benign hypertension. 5. Mild hyperkalemia secondary to acute kidney injury and Bactrim. Stable. 6. Hypernatremia secondary to lack of oral water intake. 7. Urinary retention status post Nguyen catheter placement. Also on Flomax. 8. Hypomagnesemia from poor oral intake and alcohol induced renal losses. Plan: Continue D5W at 100 mL an hour. Magnesium being replaced. Avoid nephrotoxins. Continue to hold losartan and diuretics at this time. Repeat electrolytes in the morning. 10 units of IV regular insulin today with amp of D50 if needed.
[2019-05-23 10:49] LABS: Glucose,Whole Blood 152 mg/dL (75-99)
--- NOTE | 2019-05-23 10:59 | P.PN ---
Subjective This is a pleasant 58 years old male with past medical history of COPD, hypertension, diabetes mellitus, atrial fibrillation not on anticoagulation. Patient presents because of pain and swelling in his right lower extremity, he was taking Bactrim as an outpatient. So he was admitted with diabetic cellulitis. Also patient drinks about 6-9 weeks size beers every day for many months and years Vital signs stable, patient is afebrile. Labs showing mild leukocytosis of 10.9 K, platelets 677, hemoglobin 10.4, INR 1.0, potassium 5.5, creatinine 2.5, baseline is 0.7-1.1, sugar around 200, liver enzymes not elevated. Once culture is pending. Chest x-ray: No acute process, leg x-ray: Soft tissue swelling EKG showing sinus tachycardia at [address]-T changes. On admission patient was started on Zosyn and IV vancomycin and normal saline and 100 mL per hour Infectious disease consult was placed from emergency room p Bladder scan was checked and showing postvoid residual of 500 mL which was obtained the same amount after Nguyen catheter was placed Patient is also is heavy drinker and drinks 8-9 beers every day for weeks and months MAPS was checked and patient is on gabapentin 600 mg 3 times a day and hydrocodone 7.5 mg 3 times a day 05/22/2019 Patient yesterday went into severe withdrawal symptoms last night and he was transferred to the ICU for further monitoring and possible visit has been drip, however he did not need the drip instead he was started on D5W for hypernatremia on 150, throughout the day since morning he was confused, agitated and combative at time, however when I saw him this afternoon he was more calm, he was alert and oriented to place and person, he knew why he is in the hospital. However as per staff he easily gets agitated and confused. Sitter at bedside for safety. Librium and it and to do CAT scan of the brain to rule out intracranial lesion. Vitals are stable. Labs reviewed and his sodium is 150, potassium 5.2 and creatinine is down to 1.2, sugar was 64 this morning, magnesium 1.3 which is been replaced 05/23/2019 Patient remains in the ICU, still on CIWA protocol, patient still agitated and needing extra doses of Ativan , he is at-risk to self and others and restraints has to be placed for him. CAT scan of the brain last night show no acute process., Still tachycardic and tachypneic. WBC is down to 7.3K, hemoglobin 10, platelets 6:15. Sodium is improving to 147, potassium 5.6, creatinine normal 0.9, glucose is controlled, magnesium is 1.4, being replaced as per protocol. We are going to recheck his chest x-ray. Patient is being followed by nephrology and pulmonary/critical care, as well as infectious disease. Surgical consults place with Dr. Ferrell for evaluation of his wound Prognosis remains guarded Review of system: N/a because patient is delirious and sleeping Active Medications Generic Name Dose Route Start Last Admin Trade Name Freq PRN Reason Stop Dose Admin Acetaminophen 650 mg 05/20/19 16:58 Tylenol Tab PO Q6HR PRN Mild Pain or Fever > 100.5 Hydrocodone Bitart/Acetaminophen 1 each 05/21/19 07:32 05/22/19 15:43 [place] 5-325 PO 1 each Q8HR PRN Administration Pain Albuterol/Ipratropium 3 ml 05/21/19 08:00 05/23/19 09:26 Duoneb 0.5 Mg-3 Mg/3 Ml Soln INHALATION Not Given RT-Q4H TIFFANI Atorvastatin Calcium 80 mg 05/21/19 09:00 05/23/19 10:10 Lipitor PO Not Given DAILY TIFFANI Budesonide 1 mg 05/21/19 07:28 Pulmicort INHALATION RT-Q6H PRN Shortness Of Breath Chlordiazepoxide HCl 25 mg 05/22/19 16:00 05/23/19 10:12 Librium PO Not Given TID TIFFANI Famotidine 20 mg 05/22/19 09:00 05/23/19 10:10 Pepcid PO Not Given DAILY TIFFANI Gabapentin 300 mg 05/21/19 09:00 05/23/19 10:10 Neurontin PO Not Given TID TIFFANI Heparin Sodium (Porcine) 5,000 unit 05/21/19 09:00 05/23/19 09:08 Heparin SQ 5,000 unit Q12HR TIFFANI Administration Hydroxyzine HCl 25 mg 05/21/19 07:28 Atarax PO HS PRN Insomnia Cefazolin Sodium 2 gm/ Sodium 50 mls @ 100 mls/hr 05/21/19 16:00 05/23/19 09:44 Chloride IVPB 100 mls/hr Q8HR TIFFANI Administration Dextrose/Water 1,000 mls @ 100 mls/hr 05/22/19 10:30 05/23/19 00:48 Dextrose 5%-Water Iv Soln IV 75 mls/hr .Q10H TIFFANI Administration Insulin Aspart 0 unit 05/20/19 21:00 05/23/19 06:35 Novolog SQ 100 unit ACHS TIFFANI Administration Protocol Insulin Detemir 25 unit 05/22/19 21:00 05/22/19 22:40 Levemir SQ 25 unit HS TIFFANI Administration Lorazepam 1 mg 05/21/19 07:37 05/23/19 09:12 Ativan IV 1 mg Q2HR PRN Administration CIWA 8 or 9 Lorazepam 1 mg 05/21/19 07:37 05/23/19 10:04 Ativan IV 1 mg Q1HR PRN Administration CIWA 10 to 15 Metoprolol Tartrate 100 mg 05/21/19 09:00 05/23/19 10:12 Lopressor PO Not Given BID [facility] Miscellaneous Information 1 each 05/22/19 08:39 Magnesium Per Protocol MISCELLANE DAILY PRN Per Protocol Protocol Morphine Sulfate 4 mg 05/20/19 16:58 05/22/19 23:16 Morphine Sulfate (Inj) IV 4 mg Q4HR PRN Administration Severe Pain Naloxone HCl 0.2 mg 05/20/19 16:58 Narcan IV Q2M PRN Opioid Reversal Ondansetron HCl 4 mg 05/20/19 16:58 Zofran IVP Q8HR PRN Nausea And Vomiting Tamsulosin HCl 0.4 mg 05/22/19 08:30 05/23/19 10:09 Flomax PO Not Given PC-BRKFST [facility] Thiamine HCl 100 mg 05/21/19 17:30 05/23/19 10:08 Vitamin B-1 PO Not Given BID-W/MEALS [facility] Objective - Vital Signs Vital signs: Vital Signs Temp 98.0 F 05/23/19 08:00 Pulse 94 05/23/19 08:00 Resp 24 05/23/19 08:00 BP 160/100 05/23/19 08:00 Pulse Ox 93 L 05/23/19 08:00 Intake & Output 05/22/19 05/23/19 05/23/19 18:59 06:59 18:59 Intake Total 510 1150 400 Output Total 1110 1400 425 Balance -600 -250 -25 Weight 115.9 kg Intake: IV 450 1150 400 Dextrose 5% in Water 1, 1100 400 000 ml @ 75 mls/hr IV . [id number] TIFFANI Rx#:[id number] Dextrose 5%-0.2% NaCl 1, 300 000 ml @ 100 mls/hr IV . Q10H TIFFANI Rx#:[id number] Magnesium Sulfate-D5w Pmx 100 1 gm In Dextrose/Water 1 100ml.bag @ 100 mls/hr IVPB Q1H TIFFANI Rx#: [id number] ceFAZolin 2 gm In Sodium 50 50 Chloride 0.9% 50 ml @ 100 mls/hr IVPB Q8HR TIFFANI Rx# :[id number] Oral 60 Output: Urine 1110 1400 425 Other: Voiding Method Indwelling Catheter Indwelling Catheter # Voids 3 - Exam GENERAL: The patient is alert and oriented x3, not in any acute distress. Well developed, well nourished. HEENT: Pupils are round and equally reacting to light. EOMI. No scleral icterus. No conjunctival pallor. Normocephalic, atraumatic. No pharyngeal erythema. No thyromegaly. CARDIOVASCULAR: S1 and S2 present. No murmurs, rubs, or gallops. PULMONARY: Chest is clear to auscultation, no wheezing or crackles. ABDOMEN: Soft, nontender, nondistended, normoactive bowel sounds. No palpable organomegaly. MUSCULOSKELETAL: No joint swelling or deformity. -EXTREMITIES: No cyanosis, clubbing, or pedal edema. Right foot cellulitis with erythema, swelling and tenderness. Slight tremor related to alcohol withdrawal NEUROLOGICAL: Gross neurological examination did not reveal any focal deficits. SKIN: No rashes. No petechiae - Labs CBC & Chem 7: 05/23/19 04:23 05/23/19 04:23 Labs: Abnormal Lab Results - Last 24 Hours (Table) 05/22/19 05/22/19 05/22/19 Range/Units 11:46 16:46 22:33 RBC (4.30-5.90) m/uL Hgb (13.0-17.5) gm/dL Hct (39.0-53.0) % MCHC (31.0-37.0) g/dL Plt Count (150-450) k/uL Sodium (137-145) mmol/L Potassium (3.5-5.1) mmol/L Chloride (98-107) mmol/L BUN (9-20) mg/dL Glucose (74-99) mg/dL POC Glucose (mg/dL) 125 H 146 H 197 H (75-99) mg/dL Magnesium (1.6-2.3) mg/dL 05/23/19 05/23/19 05/23/19 Range/Units 02:00 04:23 04:23 RBC 3.46 L (4.30-5.90) m/uL Hgb 10.0 L (13.0-17.5) gm/dL Hct 33.0 L (39.0-53.0) % MCHC 30.2 L (31.0-37.0) g/dL Plt Count 615 H (150-450) k/uL Sodium 147 H (137-145) mmol/L Potassium 5.6 H (3.5-5.1) mmol/L Chloride 113 H (98-107) mmol/L BUN 39 H (9-20) mg/dL Glucose 140 H (74-99) mg/dL POC Glucose (mg/dL) 144 H (75-99) mg/dL Magnesium 1.4 L (1.6-2.3) mg/dL 05/23/19 05/23/19 Range/Units 06:20 10:47 RBC (4.30-5.90) m/uL Hgb (13.0-17.5) gm/dL Hct (39.0-53.0) % MCHC (31.0-37.0) g/dL Plt Count (150-450) k/uL Sodium (137-145) mmol/L Potassium (3.5-5.1) mmol/L Chloride (98-107) mmol/L BUN (9-20) mg/dL Glucose (74-99) mg/dL POC Glucose (mg/dL) 156 H 152 H (75-99) mg/dL Magnesium (1.6-2.3) mg/dL Microbiology - Last 24 Hours (Table) 05/20/19 16:54 Gram Stain - Final Foot - Right Wound Culture - Final Strep agalactiae - (group b) 05/20/19 14:47 Blood Culture - Preliminary Blood No Growth after 48 hours Assessment and Plan Assessment: -Right foot cellulitis related to diabetes mellitus, present on admission -Acute kidney injury, mostly secondary to obstructive uropathy -Acute delirium and metabolic encephalopathy secondary to many factors, related to his infection, renal failure, renal retention, hypernatremia, acute alcohol withdrawal -Alcohol abuse , associated with delirium tremens secondary to alcohol withdrawal -Hypernatremia -Diabetes mellitus -Hypertension -Paroxysmal atrial fibrillation not on anticoagulation Plan: This is a pleasant 58 years old male who presents with diabetic right foot cellulitis, acute kidney injury. Follow-up antibiotics as per ID recommendation. Continue with IV hydration. Pulmonary/the care of the case. Do CT of the brain.add Librium. Discontinue ibuprofen. Hold diuretics and metformin Decrease doses of narcotics on gabapentin, hold losartan. Discontinue Bactrim. Start Flomax, continue with Nguyen catheter. Continue with CIWA protocol and thiamine . Consult wound care and Doppler of the lower extremities Labs and medication were reviewed.. Continue same treatment. Continue with symptomatic treatment. Resume home medication. Monitor lytes and vitals. DVT and GI prophylaxis. Further recommendations of the clinical course of the patient DVT prophylaxis: Subcutaneous heparin GI Prophylaxis: Pepcid PT/OT: Pending Prognosis is guarded
--- NOTE | 2019-05-23 11:18 | XR ---
EXAMINATION TYPE: XR chest 1V DATE OF EXAM: 05/23/2019 HISTORY: f/u. Tachypnea. REFERENCE: Previous study dated 05/22/2019. FINDINGS: Heart is enlarged. There is blunting of the left CP angle. I could not exclude a small effu francisca. There is developing infiltrate at the right lung base. IMPRESSION: 1. CONTINUING LEFT BASILAR AIRSPACE DISEASE WITH CONCOMITANT EFFUSION. 2. CARDIOMEGALY. 3. DEVELOPING RIGHT BASILAR INFILTRATE.
[2019-05-23 11:30] LABS: Glucose,Whole Blood 106 mg/dL (75-99)
--- NOTE | 2019-05-23 12:06 | US ---
EXAMINATION TYPE: US venous doppler duplex LE DATE OF EXAM: 05/23/2019 11:51 AM COMPARISON: Previous study dated 05/04/2019. CLINICAL HISTORY: Rule out DVT. R/O DVT SIDE PERFORMED: Bilateral TECHNIQUE: The lower extremity deep venous system is examined utilizing real time linear array sonog veronika with graded compression, doppler sonography and color-flow sonography. VESSELS IMAGED: External Iliac Vein (EIV) Common Femoral Vein Deep Femoral Vein Greater Saphenous Vein * Femoral Vein Popliteal Vein Small Saphenous Vein * Proximal Calf Veins (* superficial vessels) Extremely limited exam, pt AMS, moving body violently during exam, only color flow images obtained from proximal femoral veins to proximal calf veins Color flow images from proximal femoral veins to proximal calf veins show no evidence for DVT No popliteal fossa lesion is seen. IMPRESSION: THIS EXAMINATION IS NEGATIVE FOR DVT IN BOTH LEGS.
[2019-05-23] MEDS: HALOPERIDOL LACTATE 5 MG/ML 1 ML VIAL IVP PRN (12:45)
--- NOTE | 2019-05-23 14:08 | P.PN ---
Subjective Progress Note Date: 05/23/19 Principal diagnosis: Acute cellulitis of right foot and sepsis. This is a 58-year-old white male with history of multiple medical problems including alcohol abuse, chronic atrial fibrillation, COPD, diabetes, hypertension, patient presented to the ER , complaining of right foot infection involving the dorsal aspect of the right foot, and involving the right big toe. Patient was admitted basically with the impression of right foot cellulitis, acute kidney injury, and he was seen by multiple consultants on admission including nephrology and infectious disease. Placed on empirically on antibiotics, x-ray of the foot showed soft tissue swelling consistent with cellulitis. No evidence of osteomyelitis. Chest x-ray showed mostly left hemidiaphragmatic elevation and underlying COPD, no acute process was noted. Patient was initially admitted to the regular medical floor, however because of his agitation requiring Ativan patient was placed on alcohol withdrawal protocol , and transferred to the intensive care units. Remained hemodynamically stable, patient seems to be responding well to Ativan, not requiring any Haldol. Since the patient was transferred to the ICU, I was asked to see him on consultation. Patient is not the greatest historian, denies any shortness of breath cough or wheezing denies any chest pain, his main complaint seems to be related to swell ing of the right foot. Considering his renal profile showed evidence of acute kidney injury, patient had ultrasound of the kidneys and came back negative for hydronephrosis. Reevaluated today on 05/23/19, patient remains agitated, requiring Ativan as per protocol. Today I added Haldol if needed. Remains on antibiotics for his cellulitis and sepsis. Patient is asking to be discharged home. Patient is not mentally competent to make a sound decision will likely ask psychiatry to see him before the patient decided to sign out AMA. Surgery is yet to see the patient for his extensive cellulitis of the foot. He is receiving antibiotics, and he is also on the alcohol withdrawal protocol. All labs today were reviewed. Sodium is a bit high at 147 and his potassium is 5.6. Objective - Vital Signs Vital signs: Vital Signs Temp 98.0 F 05/23/19 08:00 Pulse 110 H 05/23/19 10:00 Resp 26 H 05/23/19 10:00 BP 160/100 05/23/19 08:00 Pulse Ox 92 L 05/23/19 10:00 Intake & Output 05/22/19 05/23/19 05/23/19 18:59 06:59 18:59 Intake Total 510 1150 800 Output Total 1110 1400 1075 Balance -600 -250 -275 Weight 115.9 kg Intake: IV 450 1150 800 Dextrose 5% in Water 1, 1100 800 000 ml @ 100 mls/hr IV . Q10H [facility]FF[facility] Rx#:[id number] Dextrose 5%-0.2% NaCl 1, 300 000 ml @ 100 mls/hr IV . Q10H TIFFANI Rx#:[id number] Magnesium Sulfate-D5w Pmx 100 1 gm In Dextrose/Water 1 100ml.bag @ 100 mls/hr IVPB Q1H [facility] Rx#: [id number] ceFAZolin 2 gm In Sodium 50 50 Chloride 0.9% 50 ml @ 100 mls/hr IVPB Q8HR [facility] Rx# :[id number] Oral 60 Output: Urine 1110 1400 1075 Other: Voiding Method Indwelling Catheter Indwelling Catheter # Voids 3 - Exam Physical Exam: Revealed a 58-year-old white male in no distress. Intermittently agitated asking to be sent home Head: Atraumatic, normocephalic. HEENT:[Neck is supple.] [No neck masses.] [No thyromegaly.] [No JVD.] Chest: [Clear throughout, no crackles, no rhonchi, no wheezes.] Cardiac Exam: [Normal S1 and S2, no S3 gallop, no murmur.] Abdomen: [Soft, nontender, no megaly, no rebound, no guarding, normal bowel sounds.] Extremities: [No clubbing, no edema, no cyanosis.] There is however evidence of significant swelling and erythema and serous drainage from the dorsal aspect of the right foot, sterile dressing has been applied over the period and there is also evidence of erythema extending from the right foot although it up to the area below the knee. Neurological Exam: [No focal neurologic deficit.] Oriented 2. Psychiatric: Normal mood, affect and poor mental status, patient is not a great historian regarding his illness. Lymphatics: No lymphadenopathy Skin: Areas of cellulitis and erythema noted involving the right foot and right lower extremity. - Labs CBC & Chem 7: 05/23/19 04:23 05/23/19 04:23 Labs: Abnormal Lab Results - Last 24 Hours (Table) 05/22/19 05/22/19 05/23/19 Range/Units 16:46 22:33 02:00 RBC (4.30-5.90) m/uL Hgb (13.0-17.5) gm/dL Hct (39.0-53.0) % MCHC (31.0-37.0) g/dL Plt Count (150-450) k/uL Sodium (137-145) mmol/L Potassium (3.5-5.1) mmol/L Chloride (98-107) mmol/L BUN (9-20) mg/dL Glucose (74-99) mg/dL POC Glucose (mg/dL) 146 H 197 H 144 H (75-99) mg/dL Magnesium (1.6-2.3) mg/dL 05/23/19 05/23/19 05/23/19 Range/Units 04:23 04:23 06:20 RBC 3.46 L (4.30-5.90) m/uL Hgb 10.0 L (13.0-17.5) gm/dL Hct 33.0 L (39.0-53.0) % MCHC 30.2 L (31.0-37.0) g/dL Plt Count 615 H (150-450) k/uL Sodium 147 H (137-145) mmol/L Potassium 5.6 H (3.5-5.1) mmol/L Chloride 113 H (98-107) mmol/L BUN 39 H (9-20) mg/dL Glucose 140 H (74-99) mg/dL POC Glucose (mg/dL) 156 H (75-99) mg/dL Magnesium 1.4 L (1.6-2.3) mg/dL 05/23/19 05/23/19 Range/Units 10:47 11:29 RBC (4.30-5.90) m/uL Hgb (13.0-17.5) gm/dL Hct (39.0-53.0) % MCHC (31.0-37.0) g/dL Plt Count (150-450) k/uL Sodium (137-145) mmol/L Potassium (3.5-5.1) mmol/L Chloride (98-107) mmol/L BUN (9-20) mg/dL Glucose (74-99) mg/dL POC Glucose (mg/dL) 152 H 106 H (75-99) mg/dL Magnesium (1.6-2.3) mg/dL Microbiology - Last 24 Hours (Table) 05/20/19 16:54 Gram Stain - Final Foot - Right Wound Culture - Final Strep agalactiae - (group b) 05/20/19 14:47 Blood Culture - Preliminary Blood No Growth after 48 hours Assessment and Plan Assessment: Impression: Acute right foot cellulitis Diabetic foot ulcers involving the dorsal aspect of the right foot. Alcohol abuse and impending alcohol withdrawal Benign essential hypertension History of paroxysmal atrial fibrillation Acute kidney injury secondary to sepsis secondary to cellulitis Acute sepsis. No evidence of septic shock. Recommendation: Continue antibiotics. Hold diuretics and metformin. Continue IV hydration. Continue the call withdrawal protocol. Continue GI and DVT prophylaxis. Will follow. Not quite ready for any discharge planning at this point. Time with Patient: Less than 30
[2019-05-23] MEDS: hydrALAZINE HCL 20 MG/ML 1 ML VIAL IVP PRN (15:19)
[2019-05-23] MEDS: DEXMEDETOMIDINE/0.9% NACL(PMX) 400 MCG in EMPTY BAG 1 BAG IV SCH ×2 (15:35→20:21)
[2019-05-23] MEDS: MORPHINE SULFATE 4 MG/ML SYRINGE IV PRN ×2 (16:04→23:42)
[2019-05-23 17:30] LABS: Glucose,Whole Blood 147 mg/dL (75-99)
[2019-05-23] MEDS: metroNIDAZOLE-NS PMX 500 MG in SALINE 1 100ML.BAG IVPB SCH (19:15)
--- NOTE | 2019-05-23 19:53 | PN ---
PROGRESS NOTE DATE OF SERVICE: 05/23/2019. REASON FOR FOLLOWUP VISIT: Right big toe wound, diabetic foot infection with secondary cellulitis. INTERVAL HISTORY: The patient is currently afebrile. The patient has been breathing comfortably. He remains to be in DTs and is currently sedated and no prior history. No vomiting or diarrhea has been reported. PHYSICAL EXAMINATION: Blood pressure 124/60 with a pulse of 84, temperature 98.4. He is 93% on 2 L nasal cannula. General description is a middle-aged male lying in bed in no distress. Respiratory system: Unlabored breathing. Clear to auscultation anteriorly. HEART: S1, S2 regular rate and rhythm. Abdomen soft, no tenderness. slightly decreased. Big toe base of the wound is currently dressed. Minimal drainage on the dressing. LABS: Hemoglobin is 10, white count 7.3. BUN of 39 and creatinine 0.96. Wound culture with Streptococcus agalactiae. DIAGNOSTIC IMPRESSION AND PLAN: Patient with right diabetic foot infection with wound at the base of the big toe, deep culture with Streptococcus agalactiae. He is already on cefazolin, clindamycin will be added waiting for the vascular surgery evaluation and possible debridement and deep cultures or amputation. Continue supportive care. MMODL / IJN: [id number] /
[2019-05-23] MEDS: INSULIN DETEMIR (LEVEMIR) 100 UNIT/ML SYR SQ SCH (20:18)
[2019-05-23] MEDS ORDERED: IPRATROPIUM-ALBUTEROL 3 ML NEB INHALATION PRN (21:24)
[2019-05-23 23:28] LABS: Glucose,Whole Blood 196 mg/dL (75-99)
[2019-05-24] MEDS: hydrALAZINE HCL 20 MG/ML 1 ML VIAL IVP PRN ×3 (00:51→13:54)
[2019-05-24] MEDS: DEXMEDETOMIDINE/0.9% NACL(PMX) 400 MCG in EMPTY BAG 1 BAG IV SCH ×4 (01:08→23:03)
[2019-05-24] MEDS: DEXTROSE 5% IN WATER 1,000 ML IV SCH ×3 (01:10→23:03)
[2019-05-24] MEDS: metroNIDAZOLE-NS PMX 500 MG in SALINE 1 100ML.BAG IVPB SCH ×2 (01:15→09:48)
[2019-05-24] MEDS: LORazepam 2 MG/ML INJ IV PRN ×8 (01:31→16:50)
[2019-05-24] MEDS: HALOPERIDOL LACTATE 5 MG/ML 1 ML VIAL IVP PRN ×4 (01:31→21:34)
[2019-05-24] MEDS: MORPHINE SULFATE 4 MG/ML SYRINGE IV PRN ×4 (05:11→20:44)
[2019-05-24 05:33] LABS: Glucose,Whole Blood 201 mg/dL (75-99)
[2019-05-24 05:41] LABS: Basophils % (A) 0 %; Eosinophils # (A) 0.3 k/uL (0-0.7); Eosinophils % (A) 4 %; HCT 34.8 % (39.0-53.0); HGB 10.6 gm/dL (13.0-17.5); Hypochromasia Marked; Lymphocytes % (A) 12 %; MCH 29.1 pg (25.0-35.0); MCHC 30.3 g/dL (31.0-37.0); Mean Platelet Volume 7.7; Monocytes # (A) 0.4 k/uL (0-1.0); Monocytes % (A) 5 %; Neutrophils % (A) 76 %; Platelet Count 629 k/uL (150-450); RBC 3.63 m/uL (4.30-5.90); RDW 13.1 % (11.5-15.5); WBC 7.9 k/uL (3.8-10.6)
[2019-05-24] MEDS: INSULIN ASPART (NovoLOG) 100 UNIT/ML VIAL SQ SCH ×4 (06:02→23:33)
[2019-05-24 06:14] LABS: African American GFR (CKD) >90 (>60 ml/min/1.73 sqM); Anion Gap 6 mmol/L; Blood Urea Nitrogen 25 mg/dL (9-20); Carbon Dioxide 29 mmol/L (22-30); Chloride 112 mmol/L (98-107); Glucose 200 mg/dL (74-99); Magnesium 1.2 mg/dL (1.6-2.3); Non-African American GFR(CKD) >90 (>60 ml/min/1.73 sqM); Potassium 4.8 mmol/L (3.5-5.1); Sodium 147 mmol/L (137-145)
[2019-05-24] MEDS: THIAMINE 100 MG TAB PO SCH (06:36)
[2019-05-24] MEDS: GABAPENTIN 300 MG CAP PO SCH ×3 (07:54→20:30)
[2019-05-24] MEDS: FAMOTIDINE 20 MG TAB PO SCH (07:54)
[2019-05-24] MEDS: TAMSULOSIN 0.4 MG CAP.ER.24H PO SCH (07:54)
[2019-05-24] MEDS: ATORVASTATIN 80 MG TAB PO SCH (07:54)
[2019-05-24] MEDS: chlordiazePOXIDE 25 MG CAP PO SCH (07:54)
[2019-05-24] MEDS: MAGNESIUM SULFATE-D5W PMX 1 GM in DEXTROSE/WATER 1 100ML.BAG IVPB SCH ×3 (07:54→10:49)
[2019-05-24] MEDS: METOPROLOL TARTRATE 50 MG TAB PO SCH (07:55)
[2019-05-24] MEDS ORDERED: IPRATROPIUM-ALBUTEROL 3 ML NEB INHALATION SCH (08:00)
[2019-05-24] MEDS: HEPARIN SODIUM,PORCINE 5,000 UNIT/ML 1 ML VIAL SQ SCH ×2 (08:21→20:30)
[2019-05-24] MEDS: FAMOTIDINE 20 MG/2 ML VIAL IV SCH (09:11)
[2019-05-24] MEDS: THIAMINE 100 MG/ML 2 ML VIAL IVP SCH (09:11)
[2019-05-24] MEDS: OXYMETAZOLINE 0.05% NASL SPRAY 1 SPRAY BOTTLE NASAL SCH ×2 (09:40→20:31)
[2019-05-24] MEDS: METOPROLOL TARTRATE 5 MG/5 ML VIAL IVP SCH ×2 (10:48→20:30)
--- NOTE | 2019-05-24 10:56 | P.PN ---
Subjective Patient is seen in follow-up for acute kidney injury. Renal function is back to baseline. He was transferred to the intensive care unit for alcohol withdrawals. Remains agitated. Sitter present. Oral intake is poor. Nonoliguric. Has a Nguyen catheter for urinary retention. Vital signs are stable. General: The patient appeared well nourished and normally developed. HEENT: Head exam is unremarkable. Neck is without jugular venous distension. LUNGS: Lungs are clear to auscultation and percussion. Breath sounds decreased. HEART: Rate and Rhythm are regular. First and second heart sounds normal. No murmurs, rubs or gallops. ABDOMEN: Abdominal exam reveals normal bowel sounds. Non-tender and non- distended. No evidence of peritonitis. EXTREMITITES: Chronic changes noted. Trace edema. Objective - Vital Signs Vital signs: Vital Signs Temp 97.8 F 05/24/19 04:00 Pulse 92 05/24/19 10:00 Resp 28 H 05/24/19 10:00 BP 138/81 05/24/19 10:00 Pulse Ox 91 L 05/24/19 10:00 Intake & Output 05/23/19 05/24/19 05/24/19 18:59 06:59 18:59 Intake Total 4511.803 5142.355 1039.640 Output Total 1625 950 380 Balance -169.446 672.355 659.640 Weight 115.6 kg Intake: IV 1450 1350 1000 Dextrose 5% in Water 1, 1400 1200 500 000 ml @ 100 mls/hr IV . Q10H [facility] Rx#:[id number] Magnesium Sulfate-D5w Pmx 100 1 gm In Dextrose/Water 1 100ml.bag @ 100 mls/hr IVPB Q1H [facility] Rx#: [id number] Magnesium Sulfate-D5w Pmx 300 1 gm In Dextrose/Water 1 100ml.bag @ 100 mls/hr IVPB Q1H [facility] Rx#: [id number] ceFAZolin 2 gm In Sodium 50 50 Chloride 0.9% 50 ml @ 100 mls/hr IVPB Q8HR [facility] Rx# :[id number] metroNIDAZOLE-NS PMX 500 100 100 mg In Saline 1 100ml.bag @ 100 mls/hr IVPB Q8H [facility] Rx#:[id number] Intake, IV Titration 5.554 272.355 39.640 Amount Dexmedetomidine/0.9% NaCl 5.554 272.355 39.640 (Pmx) 400 mcg In Empty Bag 1 bag @ Titrate IV . Q0M [facility] Rx#:[id number] Output: Urine 1625 950 380 Other: Voiding Method Indwelling Catheter Indwelling Catheter - Labs CBC & Chem 7: 05/24/19 04:48 05/24/19 04:48 Labs: Abnormal Lab Results - Last 24 Hours (Table) 05/23/19 05/23/19 05/23/19 Range/Units 11:29 17:28 23:26 RBC (4.30-5.90) m/uL Hgb (13.0-17.5) gm/dL Hct (39.0-53.0) % MCHC (31.0-37.0) g/dL Plt Count (150-450) k/uL Sodium (137-145) mmol/L Chloride (98-107) mmol/L BUN (9-20) mg/dL Glucose (74-99) mg/dL POC Glucose (mg/dL) 106 H 147 H 196 H (75-99) mg/dL Magnesium (1.6-2.3) mg/dL 05/24/19 05/24/19 05/24/19 Range/Units 04:48 04:48 05:31 RBC 3.63 L (4.30-5.90) m/uL Hgb 10.6 L (13.0-17.5) gm/dL Hct 34.8 L (39.0-53.0) % MCHC 30.3 L (31.0-37.0) g/dL Plt Count 629 H (150-450) k/uL Sodium 147 H (137-145) mmol/L Chloride 112 H (98-107) mmol/L BUN 25 H (9-20) mg/dL Glucose 200 H (74-99) mg/dL POC Glucose (mg/dL) 201 H (75-99) mg/dL Magnesium 1.2 L (1.6-2.3) mg/dL Microbiology - Last 24 Hours (Table) 05/20/19 14:47 Blood Culture - Preliminary Blood No Growth after 72 hours Assessment and Plan Plan: Assessment: 1. Acute kidney injury secondary to urinary retention and Bactrim which will impair creatinine secretion. Creatinine 2.59 on admission and is down to 0.73 today. Baseline creatinine near 1. No proteinuria on UA. No hydronephrosis noted on kidney ultrasound. 2. Right hand cellulitis maintained on antibiotics. 3. Insulin-dependent diabetes mellitus. 4. Benign hypertension. 5. Mild hyperkalemia secondary to acute kidney injury and Bactrim. Better. 6. Hypernatremia secondary to lack of oral water intake. 7. Urinary retention status post Nguyen catheter placement. Also on Flomax. 8. Hypomagnesemia from poor oral intake and alcohol induced renal losses. Plan: Continue D5W at 100 mL an hour. Magnesium being replaced. Avoid nephrotoxins. Continue to hold losartan and diuretics at this time. Repeat electrolytes in the morning.
--- NOTE | 2019-05-24 10:59 | PN ---
PROGRESS NOTE PULMONARY/CRITICAL CARE PROGRESS NOTE DATE OF SERVICE: May 24, 2019 This is a 58-year-old male who was admitted on the 19 of May. He came in with complaints of alcohol withdrawal syndrome, diabetes mellitus, acute kidney injury, right lower extremity cellulitis. Currently, because of his agitation and confusion, he is on Precedex 0.7, Ativan, morphine, and Haldol. I did ask the nurse to stop the Precedex and just use the Ativan, morphine, and Haldol. The patient does have a cellulitis of the right lower extremity. For that, he is on Ancef and Flagyl. He had a pretty uneventful night other than the agitation and confusion. He remains on 2 L nasal cannula and an IV of D5W. He was admitted initially to the floor on the and transferred to the ICU on the because of agitation and confusion that they apparently could not handle on the floor. Microbiology shows group B strep in the wound. PHYSICAL EXAMINATION: VITAL SIGNS: His current vital signs are reviewed. Temperature is 97.8. Heart rate 86, respiratory rate 20, blood pressure 150/80, mean 103, saturations between 91% and 93% on a couple liters. GENERAL APPEARANCE: Appears in no acute distress. HEENT: Examination is grossly unremarkable. Mucous membranes are moist. No oral lesions. NECK: Supple. Full range of motion. No adenopathy or thyromegaly. Neck veins are flat. CARDIOVASCULAR: Examination reveals regular rhythm and rate. Heart rate mid 70s to low 80s. S1, S2 normal. LUNGS: Reveal some coarse rhonchi. Breath sounds equal. ABDOMEN: Soft, but obese. Bowel sounds are heard. EXTREMITIES: Are intact. He has got some cellulitic changes to the right lower extremity. The right lower extremity is wrapped. SKIN: Without rash. NEUROLOGIC: Examination is difficult to assess. He is quite sedated on the Precedex, Ativan, morphine, and Haldol. LABS: Labs are reviewed. White count 7.9, hemoglobin 10.6, hematocrit 34.8, platelet count 629,000. Sodium 147, potassium 4.8, chloride 112, CO2 of 29. Anion gap is 6. BUN and creatinine were 25 and 0.73. Magnesium 1.2. Microbiology showing group B strep from the right foot wound sampling. A venous Doppler of the legs show negative for DVT bilaterally. Chest x-ray done on shows left basilar airspace disease and small effusion, cardiomegaly and possible right basilar infiltrate/pneumonia. MEDICATIONS: Medications are reviewed. Currently he is on Tylenol, Lipitor, Pulmicort, Ancef, Librium, famotidine, gabapentin, Haldol, heparin, hydralazine, [place], Atarax, insulin, updrafts, Ativan, magnesium, metoprolol, metronidazole, morphine, Narcan, Zofran, Afrin nasal spray, Flomax and thiamine. ASSESSMENT: 1. Acute right foot cellulitis, with possible underlying sepsis. 2. Diabetic foot ulcers involving the dorsal aspect of the right foot. 3. Chronic alcohol abuse with alcohol withdrawal syndrome. 4. Benign essential hypertension. 5. History of paroxysmal atrial fibrillation. 6. Acute kidney injury secondary to sepsis. 7. Significant agitation, confusion and delirium, secondary to alcohol withdrawal syndrome. PLAN: Currently, the patient seems to be doing relatively well off the Precedex. We can continue using the Ativan, morphine and Haldol. We will continue to follow. He is on good antibiotics. His medication list is reviewed. Additional recommendations and suggestions are forthcoming. Prognosis is guarded. MMODL / IJN: [id number] /
--- NOTE | 2019-05-24 11:54 | P.PN ---
Subjective This is a pleasant 58 years old male with past medical history of COPD, hypertension, diabetes mellitus, atrial fibrillation not on anticoagulation. Patient presents because of pain and swelling in his right lower extremity, he was taking Bactrim as an outpatient. So he was admitted with diabetic cellulitis. Also patient drinks about 6-9 weeks size beers every day for many months and years Vital signs stable, patient is afebrile. Labs showing mild leukocytosis of 10.9 K, platelets 677, hemoglobin 10.4, INR 1.0, potassium 5.5, creatinine 2.5, baseline is 0.7-1.1, sugar around 200, liver enzymes not elevated. Once culture is pending. Chest x-ray: No acute process, leg x-ray: Soft tissue swelling EKG showing sinus tachycardia at [address]-T changes. On admission patient was started on Zosyn and IV vancomycin and normal saline and 100 mL per hour Infectious disease consult was placed from emergency room p Bladder scan was checked and showing postvoid residual of 500 mL which was obtained the same amount after Nguyen catheter was placed Patient is also is heavy drinker and drinks 8-9 beers every day for weeks and months MAPS was checked and patient is on gabapentin 600 mg 3 times a day and hydrocodone 7.5 mg 3 times a day 05/22/2019 Patient yesterday went into severe withdrawal symptoms last night and he was transferred to the ICU for further monitoring and possible visit has been drip, however he did not need the drip instead he was started on D5W for hypernatremia on 150, throughout the day since morning he was confused, agitated and combative at time, however when I saw him this afternoon he was more calm, he was alert and oriented to place and person, he knew why he is in the hospital. However as per staff he easily gets agitated and confused. Sitter at bedside for safety. Librium and it and to do CAT scan of the brain to rule out intracranial lesion. Vitals are stable. Labs reviewed and his sodium is 150, potassium 5.2 and creatinine is down to 1.2, sugar was 64 this morning, magnesium 1.3 which is been replaced 05/23/2019 Patient remains in the ICU, still on CIWA protocol, patient still agitated and needing extra doses of Ativan , he is at-risk to self and others and restraints has to be placed for him. CAT scan of the brain last night show no acute process., Still tachycardic and tachypneic. WBC is down to 7.3K, hemoglobin 10, platelets 6:15. Sodium is improving to 147, potassium 5.6, creatinine normal 0.9, glucose is controlled, magnesium is 1.4, being replaced as per protocol. We are going to recheck his chest x-ray. Patient is being followed by nephrology and pulmonary/critical care, as well as infectious disease. Surgical consults place with Dr. Ferrell for evaluation of his wound Prognosis remains guarded 05/24/2019 Patient remains confused, he is awake but is disoriented to time place and person. He is slightly tachypneic, he got extubated at times and he has been placed restraints blood pressure is stable. Sodium is stable at 147, while he is on D5W at 100 mL per hour. He remains on CIWA protocol for his delirium tremens which might contribute to his encephalopathy on the top of his infection, also he has possible aspiration pneumonitis and antibiotics has been operated with adding clindamycin, infectious disease input is appreciated. Araujo gar is controlled Prognosis remains guarded Review of system: N/a because patient is delirious and sleeping Active Medications Generic Name Dose Route Start Last Admin Trade Name Freq PRN Reason Stop Dose Admin Acetaminophen 650 mg 05/20/19 16:58 Tylenol Tab PO Q6HR PRN Mild Pain or Fever > 100.5 Atorvastatin Calcium 80 mg 05/21/19 09:00 05/24/19 07:54 Lipitor PO Not Given DAILY [facility] Famotidine 20 mg 05/24/19 09:00 05/24/19 09:11 Pepcid IV 20 mg DAILY [facility] Administration Gabapentin 300 mg 05/21/19 09:00 05/24/19 07:54 Neurontin PO Not Given TID [facility] Haloperidol Lactate 2 mg 05/23/19 12:19 05/24/19 08:39 Haldol IVP 2 mg Q4H PRN Administration Agitation or Acute Psychosis Heparin Sodium (Porcine) 5,000 unit 05/21/19 09:00 05/24/19 08:21 Heparin SQ 5,000 unit Q12HR [facility] Administration Hydralazine HCl 10 mg 05/23/19 12:20 05/24/19 06:09 Apresoline IVP 10 mg Q6HR PRN Administration Blood Pressure - High Hydroxyzine HCl 25 mg 05/21/19 07:28 Atarax PO HS PRN Insomnia Cefazolin Sodium 2 gm/ Sodium 50 mls @ 100 mls/hr 05/21/19 16:00 05/24/19 09:10 Chloride IVPB 100 mls/hr Q8HR [facility] Administration Dextrose/Water 1,000 mls @ 100 mls/hr 05/22/19 10:30 05/24/19 01:10 Dextrose 5%-Water Iv Soln IV 100 mls/hr .Q10H [facility] Administration Clindamycin Phosphate 600 mg/ 54 mls @ 50 mls/hr 05/24/19 16:00 Dextrose/Water IVPB Q8HR [facility] Insulin Aspart 0 unit 05/24/19 00:00 05/24/19 06:02 Novolog SQ 2 unit Q6H [facility] Administration Protocol Insulin Detemir 25 unit 05/22/19 21:00 05/23/19 20:18 Levemir SQ 25 unit HS [facility] Administration Lorazepam 1 mg 05/21/19 07:37 05/23/19 09:12 Ativan IV 1 mg Q2HR PRN Administration CIWA 8 or 9 Lorazepam 1 mg 05/21/19 07:37 05/24/19 09:44 Ativan IV 1 mg Q1HR PRN Administration CIWA 10 to 15 Metoprolol Tartrate 5 mg 05/24/19 09:00 05/24/19 10:48 Lopressor IVP 5 mg Q12HR [facility] Administration Miscellaneous Information 1 each 05/22/19 08:39 Magnesium Per Protocol MISCELLANE DAILY PRN Per Protocol Protocol Morphine Sulfate 4 mg 05/20/19 16:58 05/24/19 05:11 Morphine Sulfate (Inj) IV 4 mg Q4HR PRN Administration Severe Pain Naloxone HCl 0.2 mg 05/20/19 16:58 Narcan IV Q2M PRN Opioid Reversal Ondansetron HCl 4 mg 05/20/19 16:58 Zofran IVP Q8HR PRN Nausea And Vomiting Oxymetazoline HCl 2 spray 05/24/19 09:30 05/24/19 09:40 Afrin 0.05% Nasal [place] NASAL 2 spray BID [facility] Administration Tamsulosin HCl 0.4 mg 05/22/19 08:30 05/24/19 07:54 Flomax PO Not Given [facility] Thiamine HCl 100 mg 05/24/19 09:00 05/24/19 09:11 Vitamin B-1 IVP 100 mg DAILY [facility] Administration Objective - Vital Signs Vital signs: Vital Signs Temp 97.8 F 05/24/19 04:00 Pulse 92 05/24/19 10:00 Resp 28 H 05/24/19 10:00 BP 138/81 05/24/19 10:00 Pulse Ox 91 L 05/24/19 10:00 Intake & Output 05/23/19 05/24/19 05/24/19 18:59 06:59 18:59 Intake Total 3966.117 1857.355 1039.640 Output Total 1625 950 380 Balance -169.446 672.355 659.640 Weight 115.6 kg Intake: IV 1450 1350 1000 Dextrose 5% in Water 1, 1400 1200 500 000 ml @ 100 mls/hr IV . Q10H [facility] Rx#:[id number] Magnesium Sulfate-D5w Pmx 100 1 gm In Dextrose/Water 1 100ml.bag @ 100 mls/hr IVPB Q1H [facility] Rx#: [id number] Magnesium Sulfate-D5w Pmx 300 1 gm In Dextrose/Water 1 100ml.bag @ 100 mls/hr IVPB Q1H [facility] Rx#: [id number] ceFAZolin 2 gm In Sodium 50 50 Chloride 0.9% 50 ml @ 100 mls/hr IVPB Q8HR [facility] Rx# :[id number] metroNIDAZOLE-NS PMX 500 100 100 mg In Saline 1 100ml.bag @ 100 mls/hr IVPB Q8H [facility] Rx#:[id number] Intake, IV Titration 5.554 272.355 39.640 Amount Dexmedetomidine/0.9% NaCl 5.554 272.355 39.640 (Pmx) 400 mcg In Empty Bag 1 bag @ Titrate IV . Q0M [facility] Rx#:[id number] Output: Urine 1625 950 380 Other: Voiding Method Indwelling Catheter Indwelling Catheter - Exam GENERAL: The patient is alert and oriented x3, not in any acute distress. Well developed, well nourished. HEENT: Pupils are round and equally reacting to light. EOMI. No scleral icterus. No conjunctival pallor. Normocephalic, atraumatic. No pharyngeal erythema. No thyromegaly. CARDIOVASCULAR: S1 and S2 present. No murmurs, rubs, or gallops. PULMONARY: Chest is clear to auscultation, no wheezing or crackles. ABDOMEN: Soft, nontender, nondistended, normoactive bowel sounds. No palpable organomegaly. MUSCULOSKELETAL: No joint swelling or deformity. -EXTREMITIES: No cyanosis, clubbing, or pedal edema. Right foot cellulitis with erythema, swelling and tenderness. Slight tremor related to alcohol withdrawal NEUROLOGICAL: Gross neurological examination did not reveal any focal deficits. SKIN: No rashes. No petechiae - Labs CBC & Chem 7: 05/24/19 04:48 05/24/19 04:48 Labs: Abnormal Lab Results - Last 24 Hours (Table) 05/23/19 05/23/19 05/24/19 Range/Units 17:28 23:26 04:48 RBC 3.63 L (4.30-5.90) m/uL Hgb 10.6 L (13.0-17.5) gm/dL Hct 34.8 L (39.0-53.0) % MCHC 30.3 L (31.0-37.0) g/dL Plt Count 629 H (150-450) k/uL Sodium (137-145) mmol/L Chloride (98-107) mmol/L BUN (9-20) mg/dL Glucose (74-99) mg/dL POC Glucose (mg/dL) 147 H 196 H (75-99) mg/dL Magnesium (1.6-2.3) mg/dL 05/24/19 05/24/19 Range/Units 04:48 05:31 RBC (4.30-5.90) m/uL Hgb (13.0-17.5) gm/dL Hct (39.0-53.0) % MCHC (31.0-37.0) g/dL Plt Count (150-450) k/uL Sodium 147 H (137-145) mmol/L Chloride 112 H (98-107) mmol/L BUN 25 H (9-20) mg/dL Glucose 200 H (74-99) mg/dL POC Glucose (mg/dL) 201 H (75-99) mg/dL Magnesium 1.2 L (1.6-2.3) mg/dL Microbiology - Last 24 Hours (Table) 05/20/19 14:47 Blood Culture - Preliminary Blood No Growth after 72 hours Assessment and Plan Assessment: -Right foot cellulitis related to diabetes mellitus, present on admission -Right lower lobe pneumonia, possible aspiration -Acute delirium and metabolic encephalopathy secondary to many factors, related to his infection, renal failure, renal retention, hypernatremia, acute alcohol withdrawal -Alcohol abuse , associated with delirium tremens secondary to alcohol withdrawal -Acute kidney injury, mostly secondary to obstructive uropathy, improved -Hypernatremia -Diabetes mellitus -Hypertension -Paroxysmal atrial fibrillation not on anticoagulation Plan: This is a pleasant 58 years old male who presents with diabetic right foot cellulitis, pneumonia. Follow-up antibiotics as per ID recommendation. Continue with IV hydration. Pulmonary/the care of the case. Continue with CIWA protocol, continue with antihypertensive. Discontinue ibuprofen. Hold diuretics and metformin Decrease doses of narcotics on gabapentin, hold losartan. Discontinue Bactrim. Start Flomax, continue with Nguyen catheter. Continue with CIWA protocol and thiamine . Consult wound care and Doppler of the lower extremities Labs and medication were reviewed.. Continue same treatment. Continue with symptomatic treatment. Resume home medication. Monitor lytes and vitals. DVT and GI prophylaxis. Further recommendations of the clinical course of the patient DVT prophylaxis: Subcutaneous heparin GI Prophylaxis: Pepcid PT/OT: Pending Prognosis is guarded
[2019-05-24 12:06] LABS: Glucose,Whole Blood 185 mg/dL (75-99)
--- NOTE | 2019-05-24 13:11 | P.CN ---
Psychiatric Consult - . Consult date: 05/24/19 Consult:: 05/24/19 12:59 IDENTIFYING DATA: This patient is a 58-year-old male who has a significant history for many medical comorbidities and alcohol use disorder who currently lives in a house with his girlfriend has 2 kids HISTORY OF PRESENT ILLNESS: The patient presented to the hospital on 05/20/2019 initially with complaints of a right foot infection and was found to be cellulitis from his diabetic foot ulcer. Patient was also found to have an AK I and was treated on the medical floors. Patient was then transferred to the ICU for suspected alcohol withdrawal symptoms and possible DTs. Patient has been receiving Ativan when necessary's along with Haldol for agitation as patient has been asking to sign AMA. Patient is currently awaiting surgery consultation for extensive cellulitis. Patient has been refusing certain medications. Psychiatrist consulted for alcohol withdrawal. Patient was seen at the bedside and was in 2-point restraints with a sitter at the bedside and patient appeared to be agitated and moving about the bed asking repeatedly to be let go and discharge. Patient appears to have poor insight and judgment into his condition and was oriented to place and name only and had poor attention span. Patient was a poor historian and did not give contract technical writer any information. Patient swore at contract technical writer several times demanding to be let go. When asked about his condition and why came to the hospital patient repeatedly states "I don't know". When asked about what he would do at home and how his treatment would be better patient states "I can breathe better at home". Patient did not answer most questions appropriately. He denied any issues with his mood he states that his sleep is poor. At this time patient denies any suicidal or homical ideations, intent or plan. Patient denies any auditory, visual hallucinations and denies any paranoia or delusions. Patients denied using any recreational drugs and denied any alcohol use however patient has a known history for alcohol dependence. PAST PSYCHIATRIC HISTORY: Patient denies any psychiatric hospitalizations in the past and denies any psych outpatient follow-up. He denies any suicide attempts in the past PAST MEDICAL HISTORY: A. fib, COPD, diabetes mellitus, hypertension, diabetic foot ulcer and cellulitis. ALLERGIES: as per EMR. CHEMICAL DEPENDENCY HISTORY: as per HPI. FAMILY PSYCHIATRIC/SUBSTANCE USE HISTORY: denies SOCIAL HISTORY: Patient was uncooperative and did not answer questions related to social history. He currently lives in a house with his girlfriend and has 2 older kids. MENTAL STATUS EXAM: General Appearance: Patient appears to be overweight, stated age is alert, uncooperative, demanding and agitated. Patient appears to have poor hygiene and grooming wearing hospital gown with poor eye contact. Behavior: Patient is fighting his restraints and repeatedly demanding/agitated. Speech: Patient's speech is fluent and nonpressured. Mood/Affect: Patient reports their mood is "pissed", affect is congruent Suicidality/Homicidality: Patient denies having any suicidal or homicidal ideation intent or plan. Perceptions: Patient denies any visual hallucinations and denies any auditory hallucinations Though content/process: Poverty of content. Poor historian. [place]. Memory and concentration: AOX2, poor attention span, abstraction, poor judgment. Poor fund of knowledge. Judgment and insight: poor/impulsive. IMPRESSIONS: Alcohol use disorder, moderate-severe, currently in withdrawal PLAN: -At this time patient DOES NOT meet criteria for inpatient psychiatric admission. -Patient DOES NOT have decision making capacity at this time and is unable to reason through and communicate/appreciate the risks, benefits and alternatives to treatment. -Would recommend the following medication changes/additions: Discontinued Vistaril as the anticholinergic effects may be contributing to confusion. Can continue with CIWA protocol with Ativan when necessary. Continue to monitor vital signs. can continue with Haldol 2 mg IVP every 4 hours when necessary. Added Zyprexa 5 mg daily at bedtime for psychosis/insomnia. -Patient is likely currently on day 4 of alcohol withdrawal and currently in the window for possible DTs. -Continue 1:1 sitter for safety -Cannot leave AMA at this time as patient does not have capacity at this time. -Will continue to follow along
[2019-05-24 16:32] LABS: Glucose,Whole Blood 151 mg/dL (75-99)
[2019-05-24] MEDS: CLINDAMYCIN 600 MG in DEXTROSE 5% IN WATER 50 ML IVPB SCH ×4 (17:30→23:07)
--- NOTE | 2019-05-24 19:44 | PN ---
PROGRESS NOTE DATE OF SERVICE: 05/24/2019 REASON FOR FOLLOWUP: Right big toe diabetic foot infection with lower extremity cellulitis. INTERVAL HISTORY: The patient is currently afebrile. The patient is breathing comfortably. The patient is going through DTs, at times has been agitated, not able to provide any history. No vomiting or diarrhea has been reported. PHYSICAL EXAMINATION: Blood pressure 170/91 with a pulse of 123, temperature 97.3. He is 94% on 2 L nasal cannula. General description is a middle-aged male lying in bed in no distress. RESPIRATORY SYSTEM: Unlabored breathing. Clear to auscultation anteriorly. HEART: S1, S2. Regular rate and rhythm. ABDOMEN: Soft. No tenderness. Right leg swelling and redness improved. Right big toe base still has a wound, deep, with slough tissue. LABS: Hemoglobin is 10.6, white count 7.9, BUN of 25, creatinine 0.73. DIAGNOSTIC IMPRESSION AND PLAN: Patient with right diabetic foot infection with Streptococcus agalactiae. Local wound culture positive. The patient is covered with cefazolin and clindamycin. Awaiting vascular surgery evaluation for possible debridement versus amputation. Will monitor his clinical course closely. MMODL / IJN: [id number] /
--- NOTE | 2019-05-24 20:05 | CONS ---
DATE OF CONSULTATION: 05/24/2019 This is a 58-year-old gentleman. The patient was seen in the intensive care unit with right foot wet gangrene involving the big toe and second toe and the metatarsophalangeal joint of the big toe is exposed and also involving the second toe with pus coming out from the wound and also there is marked cellulitis noted on the dorsal aspect of the foot. The patient has history of atrial fibrillation, not on any medication. The patient also had a history of COPD, hypertension, diabetes mellitus. The patient went into DTs and has been admitted to intensive care unit and has withdrawal symptoms. The patient has been drinking beer on a daily basis. PHYSICAL EXAMINATION: The patient is seen in the intensive care unit. The patient is heavily sedated. NECK: Supple. CHEST: Clear to auscultation. Few crackles at the lung bases. First and second sounds present. ABDOMEN: Soft, nontender. Femorals are 1+. The patient has Doppler signal for posterior tibial. No Doppler signal detected for dorsalis pedis. IMPRESSION: Wet gangrene of the right foot involving the big toe and second toe and joint is exposed with draining pus. PLAN: Patient on IV antibiotic and kept on NPO midnight. The patient will be needing right foot big toe and second toe ray amputation. Risks and complications discussed. MMODL / IJN: [id number] / OZ
[2019-05-24] MEDS: OLANZapine 5 MG TAB PO SCH (20:30)
[2019-05-24] MEDS: INSULIN DETEMIR (LEVEMIR) 100 UNIT/ML SYR SQ SCH (20:31)
[2019-05-24 23:31] LABS: Glucose,Whole Blood 179 mg/dL (75-99)
[2019-05-25] MEDS: MORPHINE SULFATE 4 MG/ML SYRINGE IV PRN ×4 (01:22→20:39)
[2019-05-25] MEDS: DEXMEDETOMIDINE/0.9% NACL(PMX) 400 MCG in EMPTY BAG 1 BAG IV SCH ×2 (03:31→08:57)
[2019-05-25] MEDS: HALOPERIDOL LACTATE 5 MG/ML 1 ML VIAL IVP PRN (03:55)
[2019-05-25 04:45] LABS: INR 1.1 (<1.2)
[2019-05-25 04:51] LABS: African American GFR (CKD) >90 (>60 ml/min/1.73 sqM); Anion Gap 7 mmol/L; Blood Urea Nitrogen 19 mg/dL (9-20); Calcium 9.4 mg/dL (8.4-10.2); Carbon Dioxide 30 mmol/L (22-30); Chloride 103 mmol/L (98-107); Glucose 168 mg/dL (74-99); Magnesium 1.3 mg/dL (1.6-2.3); Non-African American GFR(CKD) >90 (>60 ml/min/1.73 sqM); Potassium 4.3 mmol/L (3.5-5.1); Sodium 140 mmol/L (137-145)
[2019-05-25 05:19] LABS: Basophils % (A) 0 %; Eosinophils # (A) 0.2 k/uL (0-0.7); Eosinophils % (A) 3 %; HCT 32.2 % (39.0-53.0); HGB 9.7 gm/dL (13.0-17.5); Hypochromasia Moderate; Lymphocytes % (A) 12 %; MCH 28.3 pg (25.0-35.0); MCHC 30.3 g/dL (31.0-37.0); MCV 93.7 fL (80.0-100.0); Monocytes # (A) 0.4 k/uL (0-1.0); Monocytes % (A) 5 %; Neutrophils # (A) 6.3 k/uL (1.3-7.7); Neutrophils % (A) 77 %; Platelet Count 540 k/uL (150-450); RBC 3.44 m/uL (4.30-5.90); RDW 13.1 % (11.5-15.5); WBC 8.3 k/uL (3.8-10.6)
[2019-05-25] MEDS: MAGNESIUM SULFATE-D5W PMX 1 GM in DEXTROSE/WATER 1 100ML.BAG IVPB SCH ×3 (05:21→07:01)
[2019-05-25 05:26] LABS: Glucose,Whole Blood 169 mg/dL (75-99)
[2019-05-25] MEDS: INSULIN ASPART (NovoLOG) 100 UNIT/ML VIAL SQ SCH ×3 (05:26→17:09)
[2019-05-25] MEDS: CLINDAMYCIN 600 MG in DEXTROSE 5% IN WATER 50 ML IVPB SCH ×4 (08:57→16:58)
[2019-05-25] MEDS: HEPARIN SODIUM,PORCINE 5,000 UNIT/ML 1 ML VIAL SQ SCH ×2 (08:57→20:44)
[2019-05-25] MEDS: FAMOTIDINE 20 MG/2 ML VIAL IV SCH (08:57)
[2019-05-25] MEDS: METOPROLOL TARTRATE 5 MG/5 ML VIAL IVP SCH ×2 (08:57→20:44)
[2019-05-25] MEDS: OXYMETAZOLINE 0.05% NASL SPRAY 1 SPRAY BOTTLE NASAL SCH ×2 (08:58→20:45)
[2019-05-25] MEDS: ATORVASTATIN 80 MG TAB PO SCH (08:58)
[2019-05-25] MEDS: GABAPENTIN 300 MG CAP PO SCH ×3 (08:58→20:44)
[2019-05-25] MEDS: TAMSULOSIN 0.4 MG CAP.ER.24H PO SCH (08:58)
[2019-05-25] MEDS: DEXTROSE 5% IN WATER 1,000 ML IV SCH ×2 (08:58→20:45)
[2019-05-25] MEDS: THIAMINE 100 MG/ML 2 ML VIAL IVP SCH (09:11)
--- NOTE | 2019-05-25 10:06 | P.PN ---
Subjective Progress Note Date: 05/25/19 Principal diagnosis: Right great toe cellulitis, diabetic foot infection, acute alcohol withdrawal On 05/25/2019 patient seen in follow-up in intensive care unit. He is resting in bed, he is still quite confused, with intermittent agitation, he is a product safety specialist at the bedside, yesterday we attempted to take him off the Precedex, and manage him with doses of Ativan and Haldol for acute alcohol withdrawal, however she required to be placed back on Precedex drip which is currently infusing at 0.7 mics per kilo per hour. Patient still requiring intermittent doses of Haldo l and Ativan. He opens eyes to voice, he is inattentive, he will try to get up unassisted. Does not seem to be in any respiratory distress, he is on 2 L of oxygen and the pulse ox of 94-95%, he is afebrile, in sinus mechanism with a controlled rate, blood pressure is 154/83. D5W at a rate of 100 ML per hour for maintenance IV infusion, patient has been nothing by mouth since midnight for her possibility of right great toe amputation. Patient remains on a combination of Kefzol and clindamycin for right great toe diabetic infection and cellulitis. Today's labs have been reviewed showing white blood cell count of 8.3, hemoglobin of 9.7, INR is 1.1, electrolytes and renal profile are within normal limits. Magnesium level is 1.3. Right foot wound cultures showed group B strep agalactiae, blood cultures were negative. Patient has been afebrile. Objective - Vital Signs Vital signs: Vital Signs Temp 97 F L 05/25/19 08:00 Pulse 71 05/25/19 09:00 Resp 21 05/25/19 09:00 BP 158/95 05/25/19 09:00 Pulse Ox 95 05/25/19 09:00 Intake & Output 05/24/19 05/25/19 05/25/19 18:59 06:59 18:59 Intake Total 5976.318 0338.356 700 Output Total 845 930 355 Balance 994.640 635.356 345 Weight 108.6 kg Intake: IV 1800 1400 600 Clindamycin 600 mg In 50 50 Dextrose 5% in Water 50 ml @ 50 mls/hr IVPB Q8HR [facility] Rx#:[id number] Dextrose 5% in Water 1, 1200 1200 300 000 ml @ 100 mls/hr IV . Q10H [facility] Rx#:[id number] Magnesium Sulfate-D5w Pmx 100 1 gm In Dextrose/Water 1 100ml.bag @ 100 mls/hr IVPB Q1H [facility] Rx#: [id number] Magnesium Sulfate-D5w Pmx 300 1 gm In Dextrose/Water 1 100ml.bag @ 100 mls/hr IVPB Q1H [facility] Rx#: [id number] Magnesium Sulfate-D5w Pmx 100 200 1 gm In Dextrose/Water 1 100ml.bag @ 100 mls/hr IVPB Q1H [facility] Rx#: [id number] ceFAZolin 2 gm In Sodium 100 50 50 Chloride 0.9% 50 ml @ 100 mls/hr IVPB Q8HR [facility] Rx# :[id number] metroNIDAZOLE-NS PMX 500 100 mg In Saline 1 100ml.bag @ 100 mls/hr IVPB Q8H [facility] Rx#:[id number] Intake, IV Titration 39.640 165.356 100 Amount Dexmedetomidine/0.9% NaCl 39.640 (Pmx) 400 mcg In Empty Bag 1 bag @ Titrate IV . Q0M [facility] Rx#:[id number] Dexmedetomidine/0.9% NaCl 165.356 100 (Pmx) 400 mcg In Empty Bag 1 bag @ Titrate IV . Q0M [facility] Rx#:[id number] Output: Urine 845 930 355 Other: Voiding Method Indwelling Catheter Indwelling Catheter - Exam GENERAL EXAM: Somnolent, but arousable, at times restless, attempts to get up out of bed unassisted, product safety specialist at the bedside, on 2 L of oxygen the pulse ox of 94% comfortable in no apparent distress. HEAD: Normocephalic/atraumatic. EYES: Normal reaction of pupils, equal size. Conjunctiva pink, sclera white. NOSE: Clear with pink turbinates. THROAT: No erythema or exudates. NECK: No masses, no JVD, no thyroid enlargement, no adenopathy. CHEST: No chest wall deformity. Symmetrical expansion. LUNGS: Equal air entry with no crackles, wheeze, rhonchi or dullness. CVS: Regular rate and rhythm, normal S1 and S2, no gallops, no murmurs, no rubs ABDOMEN: Soft, nontender. No hepatosplenomegaly, normal bowel sounds, no guarding or rigidity. EXTREMITIES: No clubbing, no edema, no cyanosis, 2+ pulses and upper and lower extremities. MUSCULOSKELETAL: Muscle strength and tone normal. SPINE: No scoliosis or deformity SKIN: Right great toe draining wound with yellow exudate, and cellulitic changes around the wound CENTRAL NERVOUS SYSTEM: Confused, somnolent, but arousable, restless at times - 1. No focal deficits, tone is normal in all 4 extremities. - Labs CBC & Chem 7: 05/25/19 03:45 05/25/19 03:45 Labs: Abnormal Lab Results - Last 24 Hours (Table) 05/24/19 05/24/19 05/24/19 Range/Units 12:04 16:30 23:29 RBC (4.30-5.90) m/uL Hgb (13.0-17.5) gm/dL Hct (39.0-53.0) % MCHC (31.0-37.0) g/dL Plt Count (150-450) k/uL Glucose (74-99) mg/dL POC Glucose (mg/dL) 185 H 151 H 179 H (75-99) mg/dL Magnesium (1.6-2.3) mg/dL 05/25/19 05/25/19 05/25/19 Range/Units 03:45 03:45 05:24 RBC 3.44 L (4.30-5.90) m/uL Hgb 9.7 L (13.0-17.5) gm/dL Hct 32.2 L (39.0-53.0) % MCHC 30.3 L (31.0-37.0) g/dL Plt Count 540 H (150-450) k/uL Glucose 168 H (74-99) mg/dL POC Glucose (mg/dL) 169 H (75-99) mg/dL Magnesium 1.3 L (1.6-2.3) mg/dL Microbiology - Last 24 Hours (Table) 05/20/19 14:47 Blood Culture - Preliminary Blood No Growth after 96 hours Assessment and Plan Plan: Assessment: #1. Acute right great toe diabetic wound infection, with cultures positive for group B strep, and surrounding cellulitis involving the dorsal aspect of the right foot #2. Acute delirium with intermittent agitation, related to sepsis, and acute alcohol withdrawal #3. Chronic alcohol abuse #4. Benign essential hypertension #5. History of paroxysmal atrial fibrillation #6. Acute kidney injury related to sepsis, improved Plan: We will try to wean the Precedex off, and managed to patient with the combination of Ativan and Haldol. Hemodynamically patient is stable, he is af ebrile, he is covered with accommodation of Kefzol and clindamycin, ID service is following, right wound cultures were positive for group B Streptococcus. Vascular surgery has been consulted for possibility of right foot big toe and second toe amputation. Awaiting further recommendations from vascular surgery. Maintain aspiration precautions, maintain product safety specialist. We'll continue to closely follow I performed a history & physical examination of the patient and discussed their management with my nurse practitioner, Tara Field. I reviewed the nurse practitioner's note and agree with the documented findings and plan of care. Lung sounds are positive for diffuse wheezes throughoutNP statement Time with Patient: Less than 30
--- NOTE | 2019-05-25 10:39 | P.PN ---
Subjective Patient is seen in follow-up for acute kidney injury. Renal function is back to baseline. He was transferred to the intensive care unit for alcohol withdrawals. Remains agitated. Sitter present. Oral intake is poor. Nonoliguric. Has a Nguyen catheter for urinary retention. Magnesium remains low. Vital signs are stable. General: The patient appeared well nourished and normally developed. HEENT: Head exam is unremarkable. Neck is without jugular venous distension. LUNGS: Lungs are clear to auscultation and percussion. Breath sounds decreased. HEART: Rate and Rhythm are regular. First and second heart sounds normal. No murmurs, rubs or gallops. ABDOMEN: Abdominal exam reveals normal bowel sounds. Non-tender and non- distended. No evidence of peritonitis. EXTREMITITES: Chronic changes noted. Trace edema. Objective - Vital Signs Vital signs: Vital Signs Temp 97 F L 05/25/19 08:00 Pulse 64 05/25/19 10:00 Resp 12 05/25/19 10:00 BP 151/96 05/25/19 10:00 Pulse Ox 96 05/25/19 10:00 Intake & Output 05/24/19 05/25/19 05/25/19 18:59 06:59 18:59 Intake Total 2791.550 3974.356 700 Output Total 845 930 355 Balance 994.640 635.356 345 Weight 108.6 kg Intake: IV 1800 1400 600 Clindamycin 600 mg In 50 50 Dextrose 5% in Water 50 ml @ 50 mls/hr IVPB Q8HR [facility] Rx#:[id number] Dextrose 5% in Water 1, 1200 1200 300 000 ml @ 100 mls/hr IV . Q10H [facility] Rx#:[id number] Magnesium Sulfate-D5w Pmx 100 1 gm In Dextrose/Water 1 100ml.bag @ 100 mls/hr IVPB Q1H [facility] Rx#: [id number] Magnesium Sulfate-D5w Pmx 300 1 gm In Dextrose/Water 1 100ml.bag @ 100 mls/hr IVPB Q1H [facility] Rx#: [id number] Magnesium Sulfate-D5w Pmx 100 200 1 gm In Dextrose/Water 1 100ml.bag @ 100 mls/hr IVPB Q1H [facility] Rx#: [id number] ceFAZolin 2 gm In Sodium 100 50 50 Chloride 0.9% 50 ml @ 100 mls/hr IVPB Q8HR [facility] Rx# :[id number] metroNIDAZOLE-NS PMX 500 100 mg In Saline 1 100ml.bag @ 100 mls/hr IVPB Q8H [facility] Rx#:[id number] Intake, IV Titration 39.640 165.356 100 Amount Dexmedetomidine/0.9% NaCl 39.640 (Pmx) 400 mcg In Empty Bag 1 bag @ Titrate IV . Q0M [facility] Rx#:[id number] Dexmedetomidine/0.9% NaCl 165.356 100 (Pmx) 400 mcg In Empty Bag 1 bag @ Titrate IV . Q0M [facility] Rx#:[id number] Output: Urine 845 930 355 Other: Voiding Method Indwelling Catheter Indwelling Catheter Indwelling Catheter - Labs CBC & Chem 7: 05/25/19 03:45 05/25/19 03:45 Labs: Abnormal Lab Results - Last 24 Hours (Table) 05/24/19 05/24/19 05/24/19 Range/Units 12:04 16:30 23:29 RBC (4.30-5.90) m/uL Hgb (13.0-17.5) gm/dL Hct (39.0-53.0) % MCHC (31.0-37.0) g/dL Plt Count (150-450) k/uL Glucose (74-99) mg/dL POC Glucose (mg/dL) 185 H 151 H 179 H (75-99) mg/dL Magnesium (1.6-2.3) mg/dL 05/25/19 05/25/19 05/25/19 Range/Units 03:45 03:45 05:24 RBC 3.44 L (4.30-5.90) m/uL Hgb 9.7 L (13.0-17.5) gm/dL Hct 32.2 L (39.0-53.0) % MCHC 30.3 L (31.0-37.0) g/dL Plt Count 540 H (150-450) k/uL Glucose 168 H (74-99) mg/dL POC Glucose (mg/dL) 169 H (75-99) mg/dL Magnesium 1.3 L (1.6-2.3) mg/dL Microbiology - Last 24 Hours (Table) 05/20/19 14:47 Blood Culture - Preliminary Blood No Growth after 96 hours Assessment and Plan Plan: Assessment: 1. Acute kidney injury secondary to urinary retention and Bactrim which will impair creatinine secretion. Resolved. Creatinine 2.59 on admission. Base line creatinine near 1. No proteinuria on UA. No hydronephrosis noted on kidney ultrasound. 2. Right hand cellulitis maintained on antibiotics. 3. Insulin-dependent diabetes mellitus. 4. Benign hypertension. 5. Mild hyperkalemia secondary to acute kidney injury and Bactrim. Better. 6. Hypernatremia secondary to lack of oral water intake. 7. Urinary retention status post Nguyen catheter placement. Also on Flomax. 8. Hypomagnesemia from poor oral intake and alcohol induced renal losses. 9. Right foot gangrene scheduled for amputation of toes today. Plan: Decrease D5W to 50 mL an hour. Magnesium being replaced. It needs to be infused over 12 hours for better absorption. Avoid nephrotoxins. Continue to hold losartan and diuretics at this time. Repeat electrolytes in the morning.
[2019-05-25 11:58] LABS: Glucose,Whole Blood 192 mg/dL (75-99)
--- NOTE | 2019-05-25 12:28 | P.PN ---
Progress Note - Text Progress Note Date: 05/25/19 Psychiatric progress note: Interval History: Patient was seen today for psychiatric follow-up in regards to his delirium and complicated alcohol withdrawal. Patient received 1 dose of Ativan yesterday and also received Haldol early this morning when necessary for agitation. Patient remains on one-to-one sitter for safety and also remains on restraints. Wellness Program Manager spoke with nurse outside patient's room who states that patient has gradually been improving and is currently on day 5 of alcohol withdrawal. Report from sitter at the bedside claims that patient has been more cooperative and less agitated today and less confused. Patient has scheduled amputation of his foot today by surgery. Patient was seen sleeping on his bed soundly and was not able to be awaken. Vital signs reviewed. Patient did not receive Zyprexa last night. Mental Status Exam: General Appearance: Patient appears to be overweight, stated age is sleeping soundly. Currently in 2-point restraints on the bed. Patient appears to have poor hygiene and grooming wearing hospital gown. Behavior: Patient is sleeping soundly on his bed. Speech: Unable to assess Mood/Affect: Unable to assess Suicidality/Homicidality: Unable to assess Perceptions: Unable to assess Though content/process: Unable to assess Memory and concentration: Unable to assess Judgment and insight: Unable to assess. Assessment Delirium likely from multiple etiologies including infection and substance withdrawal Alcohol use disorder, moderate-severe, currently in withdrawal Plan: -At this time patient DOES NOT meet criteria for inpatient psychiatric admission. -Patient continues to NOT have decision making capacity at this time and is unable to reason through and communicate/appreciate the risks, benefits and alternatives to treatment. -Would recommend the following medication changes/additions: Continue titrating off Precedex. Can continue with CIWA protocol with Ativan when necessary. Patient is currently on day 5 of alcohol withdrawal and should be improving within the next few days. Continue to monitor vital signs. Can continue with Haldol 2 mg IVP every 4 hours when necessary. Continue with Zyprexa 5 mg daily at bedtime for psychosis/insomnia, this can be titrated off within the next 3-4 days if patients agitation and insomnia resolve. -Continue 1:1 sitter for safety -Cannot leave AMA at this time as patient does not have capacity at this time. -Will continue to follow along prn if needed. Otherwise please call with any questions.
--- NOTE | 2019-05-25 14:09 | P.PN ---
Subjective 58 years old male with past medical history of COPD, hypertension, diabetes mellitus, atrial fibrillation not on anticoagulation. Patient presents because of pain and swelling in his right lower extremity, he was taking Bactrim as an outpatient. So he was admitted with diabetic cellulitis. Also patient drinks about 6-9 weeks size beers every day for many months and years Vital signs stable, patient is afebrile. Labs showing mild leukocytosis of 10.9 K, platelets 677, hemoglobin 10.4, INR 1.0, potassium 5.5, creatinine 2.5, baseline is 0.7-1.1, sugar around 200, liver enzymes not elevated. Once culture is pending. Chest x-ray: No acute process, leg x-ray: Soft tissue swelling EKG showing sinus tachycardia at [address]-T changes. On admission patient was started on Zosyn and IV vancomycin and normal saline and 100 mL per hour Infectious disease consult was placed from emergency room p Bladder scan was checked and showing postvoid residual of 500 mL which was obtained the same amount after Nguyen catheter was placed Patient is also is heavy drinker and drinks 8-9 beers every day for weeks and months MAPS was checked and patient is on gabapentin 600 mg 3 times a day and hydrocodone 7.5 mg 3 times a day 05/22/2019 Patient yesterday went into severe withdrawal symptoms last night and he was transferred to the ICU for further monitoring and possible visit has been drip, however he did not need the drip instead he was started on D5W for hypernatremia on 150, throughout the day since morning he was confused, agitated and combative at time, however when I saw him this afternoon he was more calm, he was alert and oriented to place and person, he knew why he is in the hospital. However as per staff he easily gets agitated and confused. Sitter at bedside for safety. Librium and it and to do CAT scan of the brain to rule out intracranial lesion. Vitals are stable. Labs reviewed and his sodium is 150, potassium 5.2 and creatinine is down to 1.2, sugar was 64 this morning, magnesium 1.3 which is been replaced 05/23/2019 Patient remains in the ICU, still on CIWA protocol, patient still agitated and needing extra doses of Ativan , he is at-risk to self and others and restraints has to be placed for him. CAT scan of the brain last night show no acute process., Still tachycardic and tachypneic. WBC is down to 7.3K, hemoglobin 10, platelets 6:15. Sodium is improving to 147, potassium 5.6, creatinine normal 0.9, glucose is controlled, magnesium is 1.4, being replaced as per protocol. We are going to recheck his chest x-ray. Patient is being followed by nephrology and pulmonary/critical care, as well as infectious disease. Surgical consults place with Dr. Ferrell for evaluation of his wound Prognosis remains guarded 05/24/2019 Patient remains confused, he is awake but is disoriented to time place and person. He is slightly tachypneic, he got extubated at times and he has been placed restraints blood pressure is stable. Sodium is stable at 147, while he is on D5W at 100 mL per hour. He remains on CIWA protocol for his delirium tremens which might contribute to his encephalopathy on the top of his infection, also he has possible aspiration pneumonitis and antibiotics has been operated with adding clindamycin, infectious disease input is appreciated. Sugar is controlled Prognosis remains guarded 05/25/2019 Patient is still having significant withdrawals but his encephalopathy improved significantly. Patient's amputation procedure were postponed because of his withdrawals. My suspicion for aspiration pneumonia is low patient has to cocci on the wound cultures patient is presently on cephalosporins as well as clindamycin. Review of systems: Unable to obtain as patient is confused All inpatient medications were reviewed and appropriate changes in these medic ations as dictated in the interval history and assessment and plan. Objective - Vital Signs Vital signs: Vital Signs Temp 96 F L 05/25/19 12:00 Pulse 68 05/25/19 13:00 Resp 14 05/25/19 13:00 BP 172/107 05/25/19 13:00 Pulse Ox 95 05/25/19 13:00 Intake & Output 05/24/19 05/25/19 05/25/19 18:59 06:59 18:59 Intake Total 6306.975 7940.356 950 Output Total 216 996 3347 Balance 994.640 635.356 -65 Weight 108.6 kg 108.6 kg Intake: IV 1800 1400 850 Clindamycin 600 mg In 50 50 Dextrose 5% in Water 50 ml @ 50 mls/hr IVPB Q8HR [facility] Rx#:[id number] Dextrose 5% in Water 1, 1200 1200 550 000 ml @ 50 mls/hr IV . Q20H [facility] Rx#:[id number] Magnesium Sulfate-D5w Pmx 100 1 gm In Dextrose/Water 1 100ml.bag @ 100 mls/hr IVPB Q1H [facility] Rx#: [id number] Magnesium Sulfate-D5w Pmx 300 1 gm In Dextrose/Water 1 100ml.bag @ 100 mls/hr IVPB Q1H [facility] Rx#: [id number] Magnesium Sulfate-D5w Pmx 100 200 1 gm In Dextrose/Water 1 100ml.bag @ 100 mls/hr IVPB Q1H [facility] Rx#: [id number] ceFAZolin 2 gm In Sodium 100 50 50 Chloride 0.9% 50 ml @ 100 mls/hr IVPB Q8HR [facility] Rx# :[id number] metroNIDAZOLE-NS PMX 500 100 mg In Saline 1 100ml.bag @ 100 mls/hr IVPB Q8H [facility] Rx#:[id number] Intake, IV Titration 39.640 165.356 100 Amount Dexmedetomidine/0.9% NaCl 39.640 (Pmx) 400 mcg In Empty Bag 1 bag @ Titrate IV . Q0M [facility] Rx#:[id number] Dexmedetomidine/0.9% NaCl 165.356 100 (Pmx) 400 mcg In Empty Bag 1 bag @ Titrate IV . Q0M [facility] Rx#:[id number] Output: Urine 734 [id number] 0924 Other: Voiding Method Indwelling Catheter Indwelling Catheter Indwelling Catheter - Exam PHYSICAL EXAMINATION: GENERAL: The patient is alert and confused bit of agitation, not in any acute distress. Well developed, well nourished. HEENT: Pupils are round and equally reacting to light. EOMI. No scleral icterus. No conjunctival pallor. Normocephalic, atraumatic. No pharyngeal erythema. No thyromegaly. CARDIOVASCULAR: S1 and S2 present. No murmurs, rubs, or gallops. PULMONARY: Chest is clear to auscultation, no wheezing or crackles. ABDOMEN: Soft, nontender, nondistended, normoactive bowel sounds. No palpable organomegaly. MUSCULOSKELETAL: No joint swelling or deformity. EXTREMITIES: No cyanosis, clubbing, or pedal edema. NEUROLOGICAL: Gross neurological examination did not reveal any focal deficits. SKIN: Patient has skin breakdown with significant cellulitis of the right lower extremity pedal pulses absent posterior tibial pulse on the right side - Labs CBC & Chem 7: 05/25/19 03:45 05/25/19 03:45 Labs: Abnormal Lab Results - Last 24 Hours (Table) 05/24/19 05/24/19 05/25/19 Range/Units 16:30 23:29 03:45 RBC (4.30-5.90) m/uL Hgb (13.0-17.5) gm/dL Hct (39.0-53.0) % MCHC (31.0-37.0) g/dL Plt Count (150-450) k/uL Glucose 168 H (74-99) mg/dL POC Glucose (mg/dL) 151 H 179 H (75-99) mg/dL Magnesium 1.3 L (1.6-2.3) mg/dL 05/25/19 05/25/19 05/25/19 Range/Units 03:45 05:24 11:56 RBC 3.44 L (4.30-5.90) m/uL Hgb 9.7 L (13.0-17.5) gm/dL Hct 32.2 L (39.0-53.0) % MCHC 30.3 L (31.0-37.0) g/dL Plt Count 540 H (150-450) k/uL Glucose (74-99) mg/dL POC Glucose (mg/dL) 169 H 192 H (75-99) mg/dL Magnesium (1.6-2.3) mg/dL Microbiology - Last 24 Hours (Table) 05/20/19 14:47 Blood Culture - Preliminary Blood No Growth after 96 hours Assessment and Plan Plan: -Right foot cellulitis related to diabetes mellitus, present on admission, secondary to peripheral vascular disease patient does have skin breakdown probably a stage 1-2 ulcer on the anterior aspect of the right foot amputation is postponed and patient is presently on cephalosporins and clindamycin for streptococcal infection in the right foot -Possibly of right lower lobe aspiration pneumonia is low -Acute delirium and metabolic encephalopathy secondary to many factors, related to his infection, renal failure, renal retention, hypernatremia, acute alcohol withdrawal -Alcohol abuse , associated with delirium tremens secondary to alcohol withdrawal -Acute kidney injury, mostly secondary to obstructive uropathy, improved -Hypernatremia -Diabetes mellitus -Hypertension -Paroxysmal atrial fibrillation not on anticoagulation
--- NOTE | 2019-05-25 16:22 | PN ---
PROGRESS NOTE DATE OF SERVICE: 05/25/2019 REASON FOR FOLLOWUP: Right diabetic foot infection with osteomyelitis. INTERVAL HISTORY: The patient was seen on rounds this morning. The patient is more awake and alert today. He is breathing comfortably. The patient is currently n.p.o. for surgical and the patient was asking for food. No chest pain. No cough. No abdominal pain or pain to the right foot. PHYSICAL EXAMINATION: Blood pressure 143/100 with a pulse of 64, temperature of 96. He is 96% on 2 L nasal cannula. General description is a middle-aged male lying in bed in no distress. RESPIRATORY SYSTEM: Unlabored breathing. Clear to auscultation anteriorly. HEART: S1, S2. Regular rate and rhythm. ABDOMEN: Soft. No tenderness. LABS: Hemoglobin is 9.7, white count 8.3. BUN of 19, creatinine 0.81. DIAGNOSTIC IMPRESSION AND PLAN: Patient with right diabetic foot infection with group B strep, amputation of big toe. Per Vascular Surgery, patient requires cefepime. The patient is covered with cefazolin and clindamycin; to continue and monitor his clinical course closely. MMODL / IJN: [id number] /
[2019-05-25 16:45] LABS: Glucose,Whole Blood 155 mg/dL (75-99)
[2019-05-25 20:39] LABS: Glucose,Whole Blood 213 mg/dL (75-99)
[2019-05-25] MEDS: INSULIN DETEMIR (LEVEMIR) 100 UNIT/ML SYR SQ SCH (20:44)
[2019-05-25] MEDS: OLANZapine 5 MG TAB PO SCH (20:44)
[2019-05-26] MEDS: MORPHINE SULFATE 4 MG/ML SYRINGE IV PRN ×2 (00:39→12:33)
[2019-05-26] MEDS: CLINDAMYCIN 600 MG in DEXTROSE 5% IN WATER 50 ML IVPB SCH ×6 (00:45→17:30)
[2019-05-26 00:53] LABS: Glucose,Whole Blood 316 mg/dL (75-99)
[2019-05-26] MEDS: INSULIN ASPART (NovoLOG) 100 UNIT/ML VIAL SQ SCH ×4 (00:54→17:30)
[2019-05-26 03:16] LABS: Glucose,Whole Blood 154 mg/dL (75-99)
[2019-05-26 04:38] LABS: HCT 33.3 % (39.0-53.0); HGB 10.3 gm/dL (13.0-17.5); Hypochromasia Moderate; MCHC 31.1 g/dL (31.0-37.0); MCV 93.3 fL (80.0-100.0); Platelet Count 570 k/uL (150-450); RBC 3.57 m/uL (4.30-5.90); RDW 13.1 % (11.5-15.5); WBC 9.8 k/uL (3.8-10.6)
[2019-05-26 04:49] LABS: African American GFR (CKD) >90 (>60 ml/min/1.73 sqM); Anion Gap 10 mmol/L; Blood Urea Nitrogen 20 mg/dL (9-20); Calcium 9.6 mg/dL (8.4-10.2); Carbon Dioxide 28 mmol/L (22-30); Chloride 103 mmol/L (98-107); Glucose 67 mg/dL (74-99); Magnesium 1.4 mg/dL (1.6-2.3); Non-African American GFR(CKD) >90 (>60 ml/min/1.73 sqM); Potassium 4.3 mmol/L (3.5-5.1); Sodium 141 mmol/L (137-145)
[2019-05-26 05:13] LABS: Glucose,Whole Blood 91 mg/dL (75-99)
[2019-05-26] MEDS: MAGNESIUM SULFATE-D5W PMX 1 GM in DEXTROSE/WATER 1 100ML.BAG IVPB SCH ×3 (05:24→19:30)
--- NOTE | 2019-05-26 06:56 | CDI ---
Documentation Clarification Form Date: 05/25/2019 01:12:02 PM From: Elvia Hill RN CCDS Admit Date: 05/20/2019 04:43:00 PM Patient Name: Toni Gutierrez Visit Number: [id number] Discharge Date: ATTENTION: The Clinical Documentation Specialists (CDI) and [facility] Coding Staff appreciate your assistance in clarifying documentation. Please respond to the clarification below the line at the bottom and electronically sign. The CDI & [facility] Coding staff will review the response and follow-up if needed. Please note: Queries are made part of the Legal Health Record. If you have any questions, please contact the author of this message via ITS. Dr. Perico Louis Acute kidney injury secondary to sepsis is documented in the Critical Care Consult 05/21 History/Risk Factors: 58-year-old male presents to the ED via EMS for right great toe infection. Medical History DM2, HTN, COPD, Alcohol abuse drinks 8-9 beers every day for weeks and months. Clinical Indicators: The patient admitted with Diabetic right foot cellulitis, Acute kidney Injury VSS 05/19 131/92 121 98.4 22 97% 2L WBC 05/19 10.9 Treatment: Antibiotics: 05/19 Zosyn Ivpb Q8hr D/cd 05/20, 05/19 Vancomycin Ivpb x1, Cefazolin Ivpb Q8Hrs, 05/22 Flagyl Ivpb Q8Hrs D/cd 05/23, 05/23 Clindamycin Ivpb Q8Hrs, IV Bolus: 05/19 0.9ns 500cc/bolus x4 bags In your professional opinion, please clarify if these findings signify one of the following Sepsis ruled out Sepsis POA Sepsis due to Gregory, Right foot cellulitis, Right foot wound Strep agalactiae Other, please specify Unable to determine SIRS Criteria (2 or more of the following may indicate SIRS): -Temperature < 96.8F (36C) or > 101.0F (38.3C) -Heart Rate > 90 bpm -Respiratory Rate > 20 breaths/min or PaCO2 < 32 mmHg -White Blood Cell Count > 12,000 or < 4,000 cells/mm3 or > 10% bands -Lactate >2.0 mmol/L (>4.0 is equivalent to septic shock) (Last Revision: June 2017) Unable to determine MTDD
[2019-05-26] MEDS: TAMSULOSIN 0.4 MG CAP.ER.24H PO SCH (09:26)
[2019-05-26] MEDS: METOPROLOL TARTRATE 5 MG/5 ML VIAL IVP SCH ×2 (09:26→22:46)
[2019-05-26] MEDS: GABAPENTIN 300 MG CAP PO SCH ×3 (09:27→21:53)
[2019-05-26] MEDS: ATORVASTATIN 80 MG TAB PO SCH (09:27)
[2019-05-26] MEDS: FAMOTIDINE 20 MG/2 ML VIAL IV SCH (09:30)
[2019-05-26] MEDS: HEPARIN SODIUM,PORCINE 5,000 UNIT/ML 1 ML VIAL SQ SCH ×2 (09:30→21:52)
[2019-05-26] MEDS: THIAMINE 100 MG/ML 2 ML VIAL IVP SCH (09:31)
[2019-05-26] MEDS: OXYMETAZOLINE 0.05% NASL SPRAY 1 SPRAY BOTTLE NASAL SCH ×2 (09:38→21:53)
--- NOTE | 2019-05-26 10:06 | P.PN ---
Subjective Progress Note Date: 05/26/19 Principal diagnosis: Right great toe cellulitis, diabetic foot infection, acute alcohol withdrawal On 05/25/2019 patient seen in follow-up in intensive care unit. He is resting in bed, he is still quite confused, with intermittent agitation, he is a system safety engineer at the bedside, yesterday we attempted to take him off the Precedex, and manage him with doses of Ativan and Haldol for acute alcohol withdrawal, however she required to be placed back on Precedex drip which is currently infusing at 0.7 mics per kilo per hour. Patient still requiring intermittent doses of Haldo l and Ativan. He opens eyes to voice, he is inattentive, he will try to get up unassisted. Does not seem to be in any respiratory distress, he is on 2 L of oxygen and the pulse ox of 94-95%, he is afebrile, in sinus mechanism with a controlled rate, blood pressure is 154/83. D5W at a rate of 100 ML per hour for maintenance IV infusion, patient has been nothing by mouth since midnight for her possibility of right great toe amputation. Patient remains on a combination of Kefzol and clindamycin for right great toe diabetic infection and cellulitis. Today's labs have been reviewed showing white blood cell count of 8.3, hemoglobin of 9.7, INR is 1.1, electrolytes and renal profile are within normal limits. Magnesium level is 1.3. Right foot wound cultures showed group B strep agalactiae, blood cultures were negative. Patient has been afebrile. Patient was scheduled for amputation of the right foot great toe and second toe yesterday however the procedure did not take place. Today's labs have been reviewed, showing white blood cell, 9.8, hemoglobin of 10.3, electrolytes and renal profile were within normal limits. Magnesium level was 1.4. he is currently on CIWA protocol, receiving Haldol and Ativan, and morphine for pain. Yesterday he was started on Zyprexa per psychiatry, with definitive improvement in his mentation on today's exam. Objective - Vital Signs Vital signs: Vital Signs Temp 99 F 05/26/19 08:00 Pulse 126 H 05/26/19 09:00 Resp 17 05/26/19 09:00 BP 156/84 03/25/20 09:00 Pulse Ox 96 05/26/19 08:00 Intake & Output 05/25/19 05/26/19 05/26/19 18:59 06:59 18:59 Intake Total 1249.582 700 220 Output Total 1390 1175 155 Balance -140.418 -475 65 Weight 108.6 kg 107.2 kg Intake: IV 1100 700 100 Clindamycin 600 mg In 50 50 Dextrose 5% in Water 50 ml @ 50 mls/hr IVPB Q8HR TIFFANI Rx#:[id number] Dextrose 5% in Water 1, 800 600 100 000 ml @ 50 mls/hr IV . Q20H TIFFANI Rx#:[id number] Magnesium Sulfate-D5w Pmx 200 1 gm In Dextrose/Water 1 100ml.bag @ 100 mls/hr IVPB Q1H TIFFANI Rx#: [id number] ceFAZolin 2 gm In Sodium 50 50 Chloride 0.9% 50 ml @ 100 mls/hr IVPB Q8HR TIFFANI Rx# :[id number] Intake, IV Titration 149.582 Amount Dexmedetomidine/0.9% NaCl 149.582 (Pmx) 400 mcg In Empty Bag 1 bag @ Titrate IV . Q0M TIFFANI Rx#:[id number] Oral 120 Output: Urine 1390 1175 155 Other: Voiding Method Indwelling Catheter Indwelling Catheter Indwelling Catheter - Exam GENERAL EXAM: Awake and alert, 58-year-old white male, on 2 L of oxygen, with pulse ox of 96%, he is sitting up in the recliner, oriented 3, at times restless HEAD: Normocephalic/atraumatic. EYES: Normal reaction of pupils, equal size. Conjunctiva pink, sclera white. NOSE: Clear with pink turbinates. THROAT: No erythema or exudates. NECK: No masses, no JVD, no thyroid enlargement, no adenopathy. CHEST: No chest wall deformity. Symmetrical expansion. LUNGS: Equal air entry with no crackles, wheeze, rhonchi or dullness. CVS: Regular rate and rhythm, normal S1 and S2, no gallops, no murmurs, no rubs ABDOMEN: Soft, nontender. No hepatosplenomegaly, normal bowel sounds, no g uarding or rigidity. EXTREMITIES: No clubbing, no edema, no cyanosis, 2+ pulses and upper and lower extremities. MUSCULOSKELETAL: Muscle strength and tone normal. SPINE: No scoliosis or deformity SKIN: Right great toe draining wound with yellow exudate, and cellulitic changes around the wound CENTRAL NERVOUS SYSTEM: Alert and oriented 3. No focal deficits, tone is normal in all 4 extremities. - Labs CBC & Chem 7: 05/26/19 03:53 05/26/19 03:53 Labs: Abnormal Lab Results - Last 24 Hours (Table) 05/25/19 05/25/19 05/25/19 Range/Units 11:56 16:44 20:37 RBC (4.30-5.90) m/uL Hgb (13.0-17.5) gm/dL Hct (39.0-53.0) % Plt Count (150-450) k/uL Glucose (74-99) mg/dL POC Glucose (mg/dL) 192 H 155 H 213 H (75-99) mg/dL Magnesium (1.6-2.3) mg/dL 05/26/19 05/26/19 05/26/19 Range/Units 00:51 03:14 03:53 RBC (4.30-5.90) m/uL Hgb (13.0-17.5) gm/dL Hct (39.0-53.0) % Plt Count (150-450) k/uL Glucose 67 L (74-99) mg/dL POC Glucose (mg/dL) 316 H 154 H (75-99) mg/dL Magnesium 1.4 L (1.6-2.3) mg/dL 05/26/19 Range/Units 03:53 RBC 3.57 L (4.30-5.90) m/uL Hgb 10.3 L (13.0-17.5) gm/dL Hct 33.3 L (39.0-53.0) % Plt Count 570 H (150-450) k/uL Glucose (74-99) mg/dL POC Glucose (mg/dL) (75-99) mg/dL Magnesium (1.6-2.3) mg/dL Microbiology - Last 24 Hours (Table) 05/20/19 14:47 Blood Culture - Preliminary Blood No Growth after 120 hours Assessment and Plan Plan: Assessment: #1. Acute right great toe diabetic wound infection, with cultures positive for group B strep, and surrounding cellulitis involving the dorsal aspect of the right foot #2. Acute delirium with intermittent agitation, related to sepsis, and acute alcohol withdrawal, improved #3. Chronic alcohol abuse #4. Benign essential hypertension #5. History of paroxysmal atrial fibrillation #6. Acute kidney injury related to sepsis, improved Plan: Continue with antibiotics per ID service recommendations, vital signs are stable, patient is afebrile, his mentation has significantly improved since yesterday, yesterday he was placed on Zyprexa at bedtime, he has not required much Ativan or Haldol in the last 24 hours. Precedex has been weaned off. Patient is cooperative, pleasant, he passed his CAM ICU delirium scoring test. Awaiting further recommendations from vascular surgery in terms of possibility of amputation surgery. From pulmonary/critical care perspective patient is stable, and can be transferred out of ICU to general medical floor. I performed a history & physical examination of the patient and discussed their management with my nurse practitioner, Tara Field. I reviewed the nurse practitioner's note and agree with the documented findings and plan of care. Lung sounds are positive for diffuse wheezes throughoutNP statement Time with Patient: Less than 30
--- NOTE | 2019-05-26 10:31 | P.PN ---
Subjective Patient is seen in follow-up for acute kidney injury. Renal function is back to baseline. Agitation improved. He passed a swallow eval today. He will be transferred out of the intensive care unit today. Vital signs are stable. General: The patient appeared well nourished and normally developed. HEENT: Head exam is unremarkable. Neck is without jugular venous distension. LUNGS: Lungs are clear to auscultation and percussion. Breath sounds decreased. HEART: Rate and Rhythm are regular. First and second heart sounds normal. No murmurs, rubs or gallops. ABDOMEN: Abdominal exam reveals normal bowel sounds. Non-tender and non- distended. No evidence of peritonitis. EXTREMITITES: Chronic changes noted. Trace edema. Objective - Vital Signs Vital signs: Vital Signs Temp 99 F 05/26/19 08:00 Pulse 126 H 05/26/19 09:00 Resp 17 05/26/19 09:00 BP 156/84 05/26/19 09:00 Pulse Ox 96 05/26/19 08:00 Intake & Output 05/25/19 05/26/19 05/26/19 18:59 06:59 18:59 Intake Total 1249.582 700 220 Output Total 1390 1175 155 Balance -140.418 -475 65 Weight 108.6 kg 107.2 kg Intake: IV 1100 700 100 Clindamycin 600 mg In 50 50 Dextrose 5% in Water 50 ml @ 50 mls/hr IVPB Q8HR TIFFANI Rx#:[id number] Dextrose 5% in Water 1, 800 600 100 000 ml @ 50 mls/hr IV . Q20H TIFFANI Rx#:[id number] Magnesium Sulfate-D5w Pmx 200 1 gm In Dextrose/Water 1 100ml.bag @ 100 mls/hr IVPB Q1H TIFFANI Rx#: [id number] ceFAZolin 2 gm In Sodium 50 50 Chloride 0.9% 50 ml @ 100 mls/hr IVPB Q8HR [facility]FFANI Rx# :[id number] Intake, IV Titration 149.582 Amount Dexmedetomidine/0.9% NaCl 149.582 (Pmx) 400 mcg In Empty Bag 1 bag @ Titrate IV . Q0M TIFFANI Rx#:[id number] Oral 120 Output: Urine 1390 1175 155 Other: Voiding Method Indwelling Catheter Indwelling Catheter Indwelling Catheter - Labs CBC & Chem 7: 05/26/19 03:53 03/25/20 03:53 Labs: Abnormal Lab Results - Last 24 Hours (Table) 05/25/19 05/25/19 05/25/19 Range/Units 11:56 16:44 20:37 RBC (4.30-5.90) m/uL Hgb (13.0-17.5) gm/dL Hct (39.0-53.0) % Plt Count (150-450) k/uL Glucose (74-99) mg/dL POC Glucose (mg/dL) 192 H 155 H 213 H (75-99) mg/dL Magnesium (1.6-2.3) mg/dL 05/26/19 05/26/19 05/26/19 Range/Units 00:51 03:14 03:53 RBC (4.30-5.90) m/uL Hgb (13.0-17.5) gm/dL Hct (39.0-53.0) % Plt Count (150-450) k/uL Glucose 67 L (74-99) mg/dL POC Glucose (mg/dL) 316 H 154 H (75-99) mg/dL Magnesium 1.4 L (1.6-2.3) mg/dL 05/26/19 Range/Units 03:53 RBC 3.57 L (4.30-5.90) m/uL Hgb 10.3 L (13.0-17.5) gm/dL Hct 33.3 L (39.0-53.0) % Plt Count 570 H (150-450) k/uL Glucose (74-99) mg/dL POC Glucose (mg/dL) (75-99) mg/dL Magnesium (1.6-2.3) mg/dL Microbiology - Last 24 Hours (Table) 05/20/19 14:47 Blood Culture - Preliminary Blood No Growth after 120 hours Assessment and Plan Plan: Assessment: 1. Acute kidney injury secondary to urinary retention and Bactrim which will impair creatinine secretion. Resolved. Creatinine 2.59 on admission. Baseline creatinine near 1. No proteinuria on UA. No hydronephrosis noted on kidney ultrasound. 2. Right foot gangrene maintained on antibiotics. Infectious disease and v ascular surgery following. 3. Insulin-dependent diabetes mellitus. 4. Benign hypertension. 5. Mild hyperkalemia secondary to acute kidney injury and Bactrim. Better. 6. Hypernatremia secondary to lack of oral water intake. Resolved. 7. Urinary retention status post Nguyen catheter placement. Also on Flomax. 8. Hypomagnesemia from poor oral intake and alcohol induced renal losses. Plan: Maintain D5W at 50 mL an hour. Hep-Lock later today if tolerating oral intake. He passed his swallow eval this morning. Magnesium being replaced. It will be infused over 12 hours for better absorptio n. Avoid nephrotoxins. Continue to hold losartan and diuretics at this time. Repeat electrolytes in the morning.
[2019-05-26 11:21] LABS: Glucose,Whole Blood 181 mg/dL (75-99)
--- NOTE | 2019-05-26 11:35 | P.PN ---
Subjective 58 years old male with past medical history of COPD, hypertension, diabetes mellitus, atrial fibrillation not on anticoagulation. Patient presents because of pain and swelling in his right lower extremity, he was taking Bactrim as an outpatient. So he was admitted with diabetic cellulitis. Also patient drinks about 6-9 weeks size beers every day for many months and years Vital signs stable, patient is afebrile. Labs showing mild leukocytosis of 10.9 K, platelets 677, hemoglobin 10.4, INR 1.0, potassium 5.5, creatinine 2.5, baseline is 0.7-1.1, sugar around 200, liver enzymes not elevated. Once culture is pending. Chest x-ray: No acute process, leg x-ray: Soft tissue swelling EKG showing sinus tachycardia at [address]-T changes. On admission patient was started on Zosyn and IV vancomycin and normal saline and 100 mL per hour Infectious disease consult was placed from emergency room p Bladder scan was checked and showing postvoid residual of 500 mL which was obtained the same amount after Nguyen catheter was placed Patient is also is heavy drinker and drinks 8-9 beers every day for weeks and months MAPS was checked and patient is on gabapentin 600 mg 3 times a day and hydrocodone 7.5 mg 3 times a day 05/22/2019 Patient yesterday went into severe withdrawal symptoms last night and he was transferred to the ICU for further monitoring and possible visit has been drip, however he did not need the drip instead he was started on D5W for hypernatremia on 150, throughout the day since morning he was confused, agitated and combative at time, however when I saw him this afternoon he was more calm, he was alert and oriented to place and person, he knew why he is in the hospital. However as per staff he easily gets agitated and confused. Sitter at bedside for safety. Librium and it and to do CAT scan of the brain to rule out intracranial lesion. Vitals are stable. Labs reviewed and his sodium is 150, potassium 5.2 and creatinine is down to 1.2, sugar was 64 this morning, magnesium 1.3 which is been replaced 05/23/2019 Patient remains in the ICU, still on CIWA protocol, patient still agitated and needing extra doses of Ativan , he is at-risk to self and others and restraints has to be placed for him. CAT scan of the brain last night show no acute process., Still tachycardic and tachypneic. WBC is down to 7.3K, hemoglobin 10, platelets 6:15. Sodium is improving to 147, potassium 5.6, creatinine normal 0.9, glucose is controlled, magnesium is 1.4, being replaced as per protocol. We are going to recheck his chest x-ray. Patient is being followed by nephrology and pulmonary/critical care, as well as infectious disease. Surgical consults place with Dr. Ferrell for evaluation of his wound Prognosis remains guarded 05/24/2019 Patient remains confused, he is awake but is disoriented to time place and person. He is slightly tachypneic, he got extubated at times and he has been placed restraints blood pressure is stable. Sodium is stable at 147, while he is on D5W at 100 mL per hour. He remains on CIWA protocol for his delirium tremens which might contribute to his encephalopathy on the top of his infection, also he has possible aspiration pneumonitis and antibiotics has been operated with adding clindamycin, infectious disease input is appreciated. Sugar is controlled Prognosis remains guarded 05/25/2019 Patient is still having significant withdrawals but his encephalopathy improved significantly. Patient's amputation procedure were postponed because of his withdrawals. My suspicion for aspiration pneumonia is low patient has to cocci on the wound cultures patient is presently on cephalosporins as well as clindamycin. 05/26/2019 Patient is much less confused patient is doing well no significant withdrawals today patient is awaiting amputation of the right foot Constitutional: Denied any fatigue denied any fever. Cardio vascular: denied any chest pain, palpitations Gastrointestinal denied any nausea vomiting Pulmonary: Denied any shortness of breath cough Neurologic denied any new focal deficits All inpatient medications were reviewed and appropriate changes in these medications as dictated in the interval history and assessment and plan. Objective - Vital Signs Vital signs: Vital Signs Temp 98.2 F 05/26/19 11:28 Pulse 113 H 05/26/19 11:28 Resp 22 05/26/19 11:28 BP 142/75 05/26/19 11:28 Pulse Ox 92 L 05/26/19 11:28 Intake & Output 05/25/19 05/26/19 05/26/19 18:59 06:59 18:59 Intake Total 1249.582 700 220 Output Total 1390 1175 155 Balance -140.418 -475 65 Weight 108.6 kg 107.2 kg Intake: IV 1100 700 100 Clindamycin 600 mg In 50 50 Dextrose 5% in Water 50 ml @ 50 mls/hr IVPB Q8HR TIFFANI Rx#:[id number] Dextrose 5% in Water 1, 800 600 100 000 ml @ 50 mls/hr IV . Q20H TIFFANI Rx#:[id number] Magnesium Sulfate-D5w Pmx 200 1 gm In Dextrose/Water 1 100ml.bag @ 100 mls/hr IVPB Q1H TIFFANI Rx#: [id number] ceFAZolin 2 gm In Sodium 50 50 Chloride 0.9% 50 ml @ 100 mls/hr IVPB Q8HR TIFFANI Rx# :[id number] Intake, IV Titration 149.582 Amount Dexmedetomidine/0.9% NaCl 149.582 (Pmx) 400 mcg In Empty Bag 1 bag @ Titrate IV . Q0M TIFFANI Rx#:[id number] Oral 120 Output: Urine 1390 1175 155 Other: Voiding Method Indwelling Catheter Indwelling Catheter Indwelling Catheter - Exam PHYSICAL EXAMINATION: GENERAL: Patient is alert oriented 3 not confused today, not in any acute distress. Well developed, well nourished. Doesn't have any more withdrawals. HEENT: Pupils are round and equally reacting to light. EOMI. No scleral icterus. No conjunctival pallor. Normocephalic, atraumatic. No pharyngeal erythema. No thyromegaly. CARDIOVASCULAR: S1 and S2 present. No murmurs, rubs, or gallops. PULMONARY: Chest is clear to auscultation, no wheezing or crackles. ABDOMEN: Soft, nontender, nondistended, normoactive bowel sounds. No palpable organomegaly. MUSCULOSKELETAL: No joint swelling or deformity. EXTREMITIES: No cyanosis, clubbing, or pedal edema. NEUROLOGICAL: Gross neurological examination did not reveal any focal deficits. SKIN: Patient has skin breakdown with significant cellulitis of the right lower extremity pedal pulses absent posterior tibial pulse on the right side - Labs CBC & Chem 7: 05/26/19 03:53 05/26/19 03:53 Labs: Abnormal Lab Results - Last 24 Hours (Table) 05/25/19 05/25/19 05/25/19 Range/Units 11:56 16:44 20:37 RBC (4.30-5.90) m/uL Hgb (13.0-17.5) gm/dL Hct (39.0-53.0) % Plt Count (150-450) k/uL Glucose (74-99) mg/dL POC Glucose (mg/dL) 192 H 155 H 213 H (75-99) mg/dL Magnesium (1.6-2.3) mg/dL 05/26/19 05/26/19 05/26/19 Range/Units 00:51 03:14 03:53 RBC (4.30-5.90) m/uL Hgb (13.0-17.5) gm/dL Hct (39.0-53.0) % Plt Count (150-450) k/uL Glucose 67 L (74-99) mg/dL POC Glucose (mg/dL) 316 H 154 H (75-99) mg/dL Magnesium 1.4 L (1.6-2.3) mg/dL 05/26/19 05/26/19 Range/Units 03:53 11:09 RBC 3.57 L (4.30-5.90) m/uL Hgb 10.3 L (13.0-17.5) gm/dL Hct 33.3 L (39.0-53.0) % Plt Count 570 H (150-450) k/uL Glucose (74-99) mg/dL POC Glucose (mg/dL) 181 H (75-99) mg/dL Magnesium (1.6-2.3) mg/dL Microbiology - Last 24 Hours (Table) 05/20/19 14:47 Blood Culture - Preliminary Blood No Growth after 120 hours Assessment and Plan Plan: -Right foot cellulitis related to diabetes mellitus, present on admission, secondary to peripheral vascular disease patient does have skin breakdown probably a stage 1-2 ulcer on the anterior aspect of the right foot amputation is postponed and patient is presently on cephalosporins and clindamycin for streptococcal infection in the right foot. Patient is awaiting amputation of the right foot -Possibly of right lower lobe aspiration pneumonia is low -Acute delirium and metabolic encephalopathy secondary to many factors, related to his infection, renal failure, renal retention, hypernatremia, acute alcohol withdrawal all call withdraws the better his encephalopathy is better -Alcohol abuse , associated with delirium tremens secondary to alcohol withdrawal -Acute kidney injury, mostly secondary to obstructive uropathy, improved -Hypernatremia -Diabetes mellitus -Hypertension -Paroxysmal atrial fibrillation not on anticoagulation
[2019-05-26] MEDS ORDERED: IV FLUID CONTINUATION 1,000 ML IV ONE ×2 (13:25→13:28)
[2019-05-26] MEDS ORDERED: LACTATED RINGERS 1,000 ML IV ONE (14:17)
[2019-05-26] MEDS ORDERED: PROPOFOL 10 MG/ML 20 ML VIAL IV ONE (14:19)
[2019-05-26] MEDS ORDERED: fentaNYL (PF) 50 MCG/ML 2 ML AMP ONE (14:19)
[2019-05-26] MEDS ORDERED: KETAMINE 10 MG/ML 20 ML VIAL ONE (14:19)
[2019-05-26] MEDS ORDERED: MIDAZOLAM 2 MG/2 ML VIAL ONE (14:19)
[2019-05-26] MEDS ORDERED: ESMOLOL 100 MG/10 ML VIAL ONE (14:19)
[2019-05-26] MEDS: DEXTROSE 5% IN WATER 1,000 ML IV SCH (14:38)
[2019-05-26] MEDS ORDERED: LIDOCAINE 1% INJ 10MG/ML (20 ML MDV) SQ ONE (14:39)
--- NOTE | 2019-05-26 15:35 | OP ---
OPERATIVE REPORT PREOPERATIVE DIAGNOSIS: Wet gangrene of the right foot, big toe with cellulitis of the skin. OPERATION: Right foot, big toe at metatarsophalangeal joint amputation. This patient has history of wet gangrene of the right foot, big toe and some cellulitis noted on the dorsal aspect of the foot and metatarsophalangeal joint is exposed with drainage and some devitalized tissue. Under local and IV sedation, incision was made on the dorsal aspect of the foot, deepened through skin, fat, and fascia and then this was extended to the plantar aspect of the foot, deepened through skin, fat, and fascia. At this point, we divided the tendons on the plantar dorsal aspect of the foot. We did reach the metatarsophalangeal joint, using a hand saw we divided the head of the metatarsal and specimen was removed. There was some sesamoid bone which was also removed. All the devitalized tissue was removed along the incision line. Some bleeding was noted which was controlled by hand cautery. Wound was copiously irrigated with hydrogen peroxide and saline. Tissue was approximated with 3-0 Vicryl. We kept skin open because of wet gangrene and cellulitis of the skin and we applied extra silver rope in the wound and dressing applied. Patient transferred to recovery room in satisfactory condition. PLAN: We will change the dressing every 48 hours with Aquacel Silver and 1 pillow elevation. MMODL / LUCIANON: [id number] /
[2019-05-26 15:53] LABS: Glucose,Whole Blood 179 mg/dL (75-99)
[2019-05-26 16:57] LABS: Glucose,Whole Blood 193 mg/dL (75-99)
[2019-05-26 19:59] LABS: Glucose,Whole Blood 213 mg/dL (75-99)
[2019-05-26] MEDS: HYDROcodone/APAP 7.5-325MG 1 EACH TAB PO PRN (21:04)
[2019-05-26] MEDS: INSULIN DETEMIR (LEVEMIR) 100 UNIT/ML SYR SQ SCH (21:53)
[2019-05-26] MEDS: OLANZapine 5 MG TAB PO SCH (21:53)
[2019-05-26] MEDS ORDERED: METOPROLOL TARTRATE 25 MG TAB PO STA (22:43)
--- NOTE | 2019-05-26 23:17 | PN ---
PROGRESS NOTE DATE OF SERVICE: 05/26/2019 REASON FOR FOLLOWUP: Right big toe diabetic foot infection with cellulitis. INTERVAL HISTORY: The patient was taken to the OR this afternoon. This patient is status post right big toe amputation. The patient tolerated the procedure. Post surgery the patient's pain is controlled. He is more awake and alert. No nausea or vomiting. No abdominal pain. No diarrhea. PHYSICAL EXAMINATION: Blood pressure is 139/66, pulse of 120, temperature of 98.8. He is 93% on 2 L nasal cannula. General description is a middle-aged male lying in bed in no distress. RESPIRATORY SYSTEM: Unlabored breathing. Clear to auscultation anteriorly. HEART: S1, S2. Regular rate and rhythm. ABDOMEN: Soft. No tenderness. Right leg redness has improved. Foot wound is currently dressed up. LABS: Hemoglobin is 10.3, white count 9.8. BUN of 20, creatinine 0.85. DIAGNOSTIC IMPRESSION AND PLAN: Patient with group B strep right big toe diabetic foot infection in this patient who is status post amputation. The infected part has been removed. However, the patient did have a significant component of cellulitis. He will benefit from IV antibiotic at least 2 weeks on discharge, for which the patient will need a mid line. This will be discussed with the supervisor case loading. Continue with supportive care. MMODL / IJN: [id number] /
[2019-05-26 23:34] LABS: Glucose,Whole Blood 237 mg/dL (75-99)
[2019-05-27] MEDS: INSULIN ASPART (NovoLOG) 100 UNIT/ML VIAL SQ SCH ×5 (00:16→21:49)
[2019-05-27] MEDS: CLINDAMYCIN 600 MG in DEXTROSE 5% IN WATER 50 ML IVPB SCH ×6 (00:16→16:18)
[2019-05-27] MEDS: HYDROcodone/APAP 7.5-325MG 1 EACH TAB PO PRN ×2 (04:55→16:24)
[2019-05-27 07:05] LABS: Glucose,Whole Blood 180 mg/dL (75-99)
[2019-05-27] MEDS: SODIUM CHLORIDE 0.9% 1,000 ML IV SCH ×3 (09:00→21:50)
[2019-05-27] MEDS: ATORVASTATIN 80 MG TAB PO SCH (09:08)
[2019-05-27] MEDS: TAMSULOSIN 0.4 MG CAP.ER.24H PO SCH (09:08)
[2019-05-27] MEDS: HEPARIN SODIUM,PORCINE 5,000 UNIT/ML 1 ML VIAL SQ SCH ×2 (09:08→21:47)
[2019-05-27] MEDS: FAMOTIDINE 20 MG/2 ML VIAL IV SCH (09:09)
[2019-05-27] MEDS: GABAPENTIN 300 MG CAP PO SCH ×3 (09:09→21:47)
[2019-05-27] MEDS: THIAMINE 100 MG/ML 2 ML VIAL IVP SCH (09:10)
[2019-05-27] MEDS: OXYMETAZOLINE 0.05% NASL SPRAY 1 SPRAY BOTTLE NASAL SCH ×2 (09:13→21:50)
[2019-05-27] MEDS: METOPROLOL TARTRATE 50 MG TAB PO SCH ×2 (09:13→21:47)
[2019-05-27 11:19] LABS: Glucose,Whole Blood 206 mg/dL (75-99)
[2019-05-27] MEDS: MAGNESIUM SULFATE-D5W PMX 1 GM in DEXTROSE/WATER 1 100ML.BAG IVPB SCH ×3 (13:18→16:15)
--- NOTE | 2019-05-27 14:15 | P.PN ---
Subjective Progress Note Date: 05/27/19 Principal diagnosis: 58 years old male with past medical history of COPD, hypertension, diabetes mellitus, atrial fibrillation not on anticoagulation. Patient presents because of pain and swelling in his right lower extremity, he was taking Bactrim as an outpatient. So he was admitted with diabetic cellulitis. Also patient drinks about 6-9 weeks size beers every day for many months and years Vital signs stable, patient is afebrile. Labs showing mild leukocytosis of 10.9 K, platelets 677, hemoglobin 10.4, INR 1.0, potassium 5.5, creatinine 2.5, baseline is 0.7-1.1, sugar around 200, liver enzymes not elevated. Once culture is pending. Chest x-ray: No acute process, leg x-ray: Soft tissue swelling EKG showing sinus tachycardia at [address]-T changes. On admission patient was started on Zosyn and IV vancomycin and normal saline and 100 mL per hour Infectious disease consult was placed from emergency room p Bladder scan was checked and showing postvoid residual of 500 mL which was obtained the same amount after Nguyen catheter was placed Patient is also is heavy drinker and drinks 8-9 beers every day for weeks and months MAPS was checked and patient is on gabapentin 600 mg 3 times a day and hydrocodone 7.5 mg 3 times a day 05/22/2019 Patient yesterday went into severe withdrawal symptoms last night and he was transferred to the ICU for further monitoring and possible visit has been drip, however he did not need the drip instead he was started on D5W for hypernatremia on 150, throughout the day since morning he was confused, agitated and combative at time, however when I saw him this afternoon he was more calm, he was alert and oriented to place and person, he knew why he is in the hospital. However as per staff he easily gets agitated and confused. Sitter at bedside for safety. Librium and it and to do CAT scan of the brain to rule out intracranial lesion. Vitals are stable. Labs reviewed and his sodium is 150, potassium 5.2 and creatinine is down to 1.2, sugar was 64 this morning, magnesium 1.3 which is been replaced 05/23/2019 Patient remains in the ICU, still on CIWA protocol, patient still agitated and needing extra doses of Ativan , he is at-risk to self and others and restraints has to be placed for him. CAT scan of the brain last night show no acute process., Still tachycardic and tachypneic. WBC is down to 7.3K, hemoglobin 10, platelets 6:15. Sodium is improving to 147, potassium 5.6, creatinine nor mal 0.9, glucose is controlled, magnesium is 1.4, being replaced as per protocol. We are going to recheck his chest x-ray. Patient is being followed by nephrology and pulmonary/critical care, as well as infectious disease. Surgical consults place with Dr. Ferrell for evaluation of his wound Prognosis remains guarded 05/24/2019 Patient remains confused, he is awake but is disoriented to time place and person. He is slightly tachypneic, he got extubated at times and he has been placed restraints blood pressure is stable. Sodium is stable at 147, while he is on D5W at 100 mL per hour. He remains on CIWA protocol for his delirium tremens which might contribute to his encephalopathy on the top of his infection, also he has possible aspiration pneumonitis and antibiotics has been operated with adding clindamycin, infectious disease input is appreciated. Sugar is controlled Prognosis remains guarded 05/25/2019 Patient is still having significant withdrawals but his encephalopathy improved significantly. Patient's amputation procedure were postponed because of his withdrawals. My suspicion for aspiration pneumonia is low patient has to cocci on the wound cultures patient is presently on cephalosporins as well as clindamycin. 05/26/2019 Patient is much less confused patient is doing well no significant withdrawals today patient is awaiting amputation of the right foot Constitutional: Denied any fatigue denied any fever. Cardio vascular: denied any chest pain, palpitations Gastrointestinal denied any nausea vomiting Pulmonary: Denied any shortness of breath cough Neurologic denied any new focal deficits 05/27/2019 Patient is seen and evaluated in follow-up today currently working with physical therapy. Patient underwent amputation of the right great toe with Dr. Laughlin yesterday. Patient will be requiring IV antibiotic therapy in the outpatient setting and a midline was placed. Patient is agreeable to rehab upon discharge and case management and social work are following. Infectious disease is following. Patient currently remains on cefazolin and clindamycin and will continue at this time. Magnesium is low today and will be replaced. Will repeat a.m. labs. Current magnesium is 1.3. Objective - Vital Signs Vital signs: Vital Signs Temp 98.7 F 05/27/19 11:14 Pulse 94 05/27/19 11:14 Resp 22 05/27/19 11:14 BP 129/70 05/27/19 11:14 Pulse Ox 97 05/27/19 11:14 Intake & Output 05/26/19 05/27/19 05/27/19 18:59 06:59 18:59 Intake Total 1220 Output Total 1215 900 Balance 5 -900 Intake: IV 500 Dextrose 5% in Water 1, 100 000 ml @ 50 mls/hr IV . Q20H TIFFANI Rx#:[id number] Oral 720 Output: Urine 1185 900 Uretheral (Nguyen) 900 Estimated Blood Loss 30 Other: Voiding Method Indwelling Catheter Indwelling Catheter - Exam GENERAL: Patient is alert oriented 3, not in any acute distress. Well developed, well nourished. Is not actively withdrawing from alcohol. HEENT: Pupils are round and equally reacting to light. EOMI. No scleral icterus. No conjunctival pallor. Normocephalic, atraumatic. No pharyngeal erythema. No thyromegaly. CARDIOVASCULAR: S1 and S2 present. No murmurs, rubs, or gallops. PULMONARY: Chest is clear to auscultation, no wheezing or crackles. ABDOMEN: Soft, nontender, nondistended, normoactive bowel sounds. No palpable organomegaly. MUSCULOSKELETAL: No joint swelling or deformity. EXTREMITIES: No cyanosis, clubbing, or pedal edema. Right lower extremity status post right great toe amputation dressing is dry and intact with Bola wraps surrounding the surgical dressings. NEUROLOGICAL: Gross neurological examination did not reveal any focal deficits. SKIN: Patient has skin breakdown with significant cellulitis of the right lower extremity pedal pulses absent posterior tibial pulse on the right side - Labs CBC & Chem 7: 05/26/19 03:53 05/26/19 03:53 Labs: Abnormal Lab Results - Last 24 Hours (Table) 05/26/19 05/26/19 05/26/19 Range/Units 15:49 16:56 19:58 POC Glucose (mg/dL) 179 H 193 H 213 H (75-99) mg/dL Magnesium (1.6-2.3) mg/dL 05/26/19 05/27/1920 Range/Units 23:32 06:58 08:13 POC Glucose (mg/dL) 237 H 180 H (75-99) mg/dL Magnesium 1.3 L (1.6-2.3) mg/dL 05/27/19 Range/Units 11:18 POC Glucose (mg/dL) 206 H (75-99) mg/dL Magnesium (1.6-2.3) mg/dL Microbiology - Last 24 Hours (Table) 05/26/19 15:06 Gram Stain - Preliminary Toe - Right First Tissue Culture - Preliminary 05/26/19 15:06 Anaerobic Culture - Preliminary Toe - Right First 05/20/19 14:47 Blood Culture - Final Blood No Growth after 144 hours Assessment and Plan Assessment: -Right foot cellulitis related to diabetes mellitus, present on admission, secondary to peripheral vascular disease patient does have skin breakdown probably a stage 1-2 ulcer on the anterior aspect of the right foot. Patient underwent right great toe amputation with Dr. Laughlin yesterday. Patient is currently maintained on cefazolin and clindamycin. Infectious disease is following. -Possibility of right lower lobe aspiration pneumonia is low -Acute delirium and metabolic encephalopathy secondary to many factors, related to his infection, renal failure, renal retention, hypernatremia, acute alcohol withdrawal, encephalopathy improved -Alcohol abuse , associated with delirium tremens secondary to alcohol wi thdrawal -Acute kidney injury, mostly secondary to obstructive uropathy, improved -Hypernatremia -Hypomagnesemia, being replaced, will repeat a.m. labs. -Diabetes mellitus -Hypertension -Paroxysmal atrial fibrillation not on anticoagulation Plan: Continue with current IV antibiotics and IV fluids. Will repeat a.m. labs. Continue to monitor blood sugars closely as they been elevated. D5 was dis continued. Patient did receive a midline for outpatient IV antibiotic therapy. Dr. Laughlin and infectious disease are following. Case management and neonatal social worker also following for placement in rehab upon discharge for continued PT/OT therapy as well as IV antibiotic treatment. Magnesium continues to be low and will be replaced. Will repeat a.m. labs. Further recommendations to follow. Will continue to monitor closely. Possible discharge in 24-48 hours to ECF.
--- NOTE | 2019-05-27 14:23 | P.PN ---
Progress Note - Text 58-year-old diabetic male patient had a wet gangrene of the big toe patient went for ray amputation patient also has cellulitis of the foot dressings intact we will change her dressing tomorrow with Aquacel rope
[2019-05-27 16:55] LABS: Glucose,Whole Blood 201 mg/dL (75-99)
[2019-05-27 20:15] LABS: Glucose,Whole Blood 225 mg/dL (75-99)
[2019-05-27] MEDS: INSULIN DETEMIR (LEVEMIR) 100 UNIT/ML SYR SQ SCH (21:47)
--- NOTE | 2019-05-27 22:20 | PN ---
PROGRESS NOTE DATE OF SERVICE: 05/27/2019 REASON FOR FOLLOWUP: Right big toe diabetic foot infection with right lower extremity cellulitis. INTERVAL HISTORY: The patient is currently afebrile, has been breathing comfortably. The patient is more awake and alert. Denies having any chest pain or cough. No abdominal pain or any diarrhea. PHYSICAL EXAMINATION: Blood pressure is 154/79 with a pulse of 100, temperature of 98.1. He is 99% on 3 L nasal cannula. General description is a middle-aged male lying in bed in no distress. RESPIRATORY SYSTEM: Unlabored breathing. Clear to auscultation anteriorly. HEART: S1, S2. Regular rate and rhythm. ABDOMEN: Soft. No tenderness. Right foot is currently dressed up. No obvious drainage on the dressing. DIAGNOSTIC IMPRESSION AND PLAN: Patient with right big toe diabetic foot infection with Streptococcus agalactiae in this patient with no evidence of any bacteremia. The infected part has been removed, he may benefit from at least 10 days to 2 weeks of IV antibiotic on discharge. Currently on cefazolin and clindamycin. Clindamycin will be discontinued and cefazolin will continue only. Continue with supportive care. MMODL / IJN: [id number] /
[2019-05-27] MEDS: OLANZapine 5 MG TAB PO SCH (22:34)
[2019-05-28] MEDS: CLINDAMYCIN 600 MG in DEXTROSE 5% IN WATER 50 ML IVPB SCH ×4 (00:13→08:29)
[2019-05-28] MEDS: HYDROcodone/APAP 7.5-325MG 1 EACH TAB PO PRN ×2 (00:15→08:17)
[2019-05-28] MEDS: SODIUM CHLORIDE 0.9% 1,000 ML IV SCH ×2 (04:09→13:04)
[2019-05-28 05:35] VITALS: BP 136/72; PULSE 103; RESP 16; TEMP 98.3
[2019-05-28 07:07] LABS: Glucose,Whole Blood 165 mg/dL (75-99)
[2019-05-28 07:41] LABS: HCT 33.3 % (39.0-53.0); HGB 9.9 gm/dL (13.0-17.5); Hypochromasia Marked; MCH 28.6 pg (25.0-35.0); MCHC 29.9 g/dL (31.0-37.0); MCV 95.7 fL (80.0-100.0); Mean Platelet Volume 8.4; Platelet Count 272 k/uL (150-450); RBC 3.48 m/uL (4.30-5.90); RDW 13.3 % (11.5-15.5); WBC 8.4 k/uL (3.8-10.6)
[2019-05-28 07:54] LABS: African American GFR (CKD) >90 (>60 ml/min/1.73 sqM); Anion Gap 6 mmol/L; Blood Urea Nitrogen 18 mg/dL (9-20); Calcium 8.6 mg/dL (8.4-10.2); Carbon Dioxide 28 mmol/L (22-30); Chloride 107 mmol/L (98-107); Glucose 164 mg/dL (74-99); Magnesium 1.6 mg/dL (1.6-2.3); Non-African American GFR(CKD) >90 (>60 ml/min/1.73 sqM); Potassium 4.6 mmol/L (3.5-5.1); Sodium 141 mmol/L (137-145)
[2019-05-28] MEDS: INSULIN ASPART (NovoLOG) 100 UNIT/ML VIAL SQ SCH ×2 (08:18→13:04)
[2019-05-28] MEDS: HEPARIN SODIUM,PORCINE 5,000 UNIT/ML 1 ML VIAL SQ SCH (08:19)
[2019-05-28] MEDS: THIAMINE 100 MG/ML 2 ML VIAL IVP SCH (08:19)
[2019-05-28] MEDS: TAMSULOSIN 0.4 MG CAP.ER.24H PO SCH (08:20)
[2019-05-28] MEDS: ATORVASTATIN 80 MG TAB PO SCH (08:20)
[2019-05-28] MEDS: FAMOTIDINE 20 MG/2 ML VIAL IV SCH (08:20)
[2019-05-28] MEDS: GABAPENTIN 300 MG CAP PO SCH (08:20)
[2019-05-28] MEDS: METOPROLOL TARTRATE 50 MG TAB PO SCH (08:20)
[2019-05-28] MEDS: OXYMETAZOLINE 0.05% NASL SPRAY 1 SPRAY BOTTLE NASAL SCH (08:27)
[2019-05-28] MEDS: MAGNESIUM SULFATE-D5W PMX 1 GM in DEXTROSE/WATER 1 100ML.BAG IVPB SCH ×2 (10:32→13:03)
--- NOTE | 2019-05-28 11:05 | PN ---
PROGRESS NOTE This 58-year-old gentleman who had a right foot big toe wet gangrene. Patient went for ray amputation of the right foot big toe. The patient is on IV antibiotic under care of Infectious Disease. We changed the dressing today. Base of the wound is clean. We have left the wound open because of infection. The wound was irrigated with saline and Aquacel Silver applied rope to the wound. The patient is going home today and patient will be changing his dressing by home care 3 times a week using Aquacel Silver. I will follow this patient this Friday in the wound clinic. MMODL / IJN: [id number] /
[2019-05-28 12:23] LABS: Glucose,Whole Blood 244 mg/dL (75-99)
--- NOTE | 2019-05-28 13:58 | P.DS ---
Providers Date of admission: 05/20/19 16:43 Expected date of discharge: 05/28/19 Attending physician: Rosie Hopkins Consults: 05/20/19 17:24 Consult Physician Stat Consulting Provider: Jonah Burgess Consult Reason/Comments: cellulitis, diabetes Do you want consulting provider notified?: Yes 05/21/19 07:28 Consult Physician Urgent Consulting Provider: Irvin Mata Consult Reason/Comments: glynn Do you want consulting provider notified?: Yes 05/22/19 02:04 Consult Physician Routine Consulting Provider: Kishore Alvarado Consult Reason/Comments: Needs ativan drip Do you want consulting provider notified?: Yes 05/22/19 19:02 Consult Physician Urgent Consulting Provider: Doron Laughlin Consult Reason/Comments: diabetic wound of foot Do you want consulting provider notified?: Yes 05/23/19 15:13 Consult Physician Urgent Consulting Provider: Lonnie Brian Consult Reason/Comments: etoh withdrawal/acute pychosis Do you want consulting provider notified?: Already Contacted [facility] Course: Final diagnosis -Right foot cellulitis related to diabetes mellitus, present on admission, secondary to peripheral vascular disease -Status post right great toe amputation -Possibility of right lower lobe aspiration pneumonia is low -Acute delirium and metabolic encephalopathy secondary to many factors, related to his infection, renal failure, renal retention, hypernatremia, acute alcohol withdrawal, encephalopathy -Alcohol abuse , associated with delirium tremens secondary to alcohol withdrawal -Acute kidney injury, mostly secondary to obstructive uropathy -Hypernatremia -Hypomagnesemia -Diabetes mellitus -Hypertension -Paroxysmal atrial fibrillation not on anticoagulation Discharge disposition Patient is being discharged in a stable condition to [facility] for continued PT/OT therapy. Patient will continue with IV antibiotics in the form of cefazolin 2 g every 8 hours for the next 2 weeks. Patient will need follow- up with Dr. Laughlin in the wound care center this Friday along with follow-up with Dr. Burgess in the outpatient setting. Total time taken is 35 minutes. History of present illness This is an 58-year-old male that was recently admitted pain and swelling in the right lower extremity with failed outpatient treatment and was being closely monitored. Patient is also a heavy drinker and was experiencing some altered mental status and alcohol withdrawal and stayed briefly in the ICU for close monitoring. Patient was maintained on CIWA protocol and is not currently withdrawing at this time. Patient's encephalopathy has improved significantly and is back to baseline alert and oriented 3. Patient was maintained on IV antibiotics in the form of clindamycin and cefazolin and infectious disease is following. Patient will continue on cefazolin 2 g every 8 hours for the next 2 weeks and will need follow-up with infectious disease in the outpatient setting. Patient is also to continue with physical therapy for increased strength and mobility. Patient will need follow-up in the wound care center with Dr. Laughlin for wound recheck as he underwent right great toe amputation on although dressings and Aquacel Silver applied the wound bed was left open due to infection. Patient is to continue with partial weightbearing on the heel and to avoid the toe area with pressure. Currently no reports of chest pain, shortness of breath, or palpitations. Patient is afebrile. No reports of nausea or vomiting and patient is tolerating diet. [facility] On exam vital signs are stable. Temp is 98.3F, pulse is 103, respirations are 16, blood pressure is 136/72, oxygen saturation is 97% on 3 L via nasal cannula. Cardio S1, S2 are present. Respiratory system shows diminished breath sounds at the bases with a few scattered rhonchi noted. No expiratory wheezing noted on exam. Abdomen is soft and nontender. Nervous system shows mild diffuse weakness. Please refer to medication reconciliation sheet for a list of medications. Patient Condition at Discharge: Stable Plan - Discharge Summary Discharge Rx Participant: Yes New Discharge Prescriptions: New Oxymetazoline 0.05% Nasl [place] [Afrin 0.05% Nasal [place]] 2 spray NASAL BID bottle Tamsulosin [Flomax] 0.4 mg PO PC-BRKFST cap.er.24h ceFAZolin (PMX-bag) [KEFZOL (PMX-bag)] 2 gm IV Q8H 14 Days #42 bag Insulin Detemir (Levemir) [Levemir] 25 unit SQ HS syr Metoprolol Tartrate [Lopressor] 50 mg PO BID tab HYDROcodone/APAP 7.5-325MG [Gay 7.5-325] 1 each PO Q8H PRN #4 tab PRN Reason: Pain INSULIN ASPART (NovoLOG) [NovoLOG (formulary)] 0 unit SQ ACHS vial Acetaminophen Tab [Tylenol] 650 mg PO Q6HR PRN tab PRN Reason: Mild Pain Or Fever > 100.5 OLANZapine [ZyPREXA] 5 mg PO HS tab Continue metFORMIN HCL 1,000 mg PO BID Atorvastatin [Lipitor] 80 mg PO DAILY Ipratropium-Albuterol Nebulize [Duoneb 0.5 mg-3 mg/3 ml Soln] 3 ml INHALATION RT-Q4H glipiZIDE [Glucotrol] 20 mg PO BID Budesonide 1 mg INHALATION RT-Q6H PRN PRN Reason: Shortness Of Breath Gabapentin 600 mg PO TID #6 tab Discontinued Hydrocodone/Acetaminophen [Hydrocodone-Acetamin 7.5-325] 1 tab PO TID Insulin Glargine,Hum.rec.anlog [Lantus Solostar] 35 unit SQ HS Hydrochlorothiazide [Hydrodiuril] 25 mg PO DAILY Metoprolol Tartrate [Lopressor] 100 mg PO BID Furosemide [Lasix] 20 mg PO Q48H hydrOXYzine HCL [Atarax] 25 mg PO HS PRN PRN Reason: Insomnia Losartan Potassium 100 mg PO DAILY Sulfamethox-Tmp 800-160Mg [Bactrim DS 800-160 mg] 1 tab PO BID Discharge Medication List metFORMIN HCL 1,000 mg PO BID 02/27/16 [History] Atorvastatin [Lipitor] 80 mg PO DAILY 01/29/19 [History] Ipratropium-Albuterol Nebulize [Duoneb 0.5 mg-3 mg/3 ml Soln] 3 ml INHALATION RT -Q4H 01/29/19 [History] glipiZIDE [Glucotrol] 20 mg PO BID 01/29/19 [History] Budesonide 1 mg INHALATION RT-Q6H PRN 05/20/19 [History] Acetaminophen Tab [Tylenol] 650 mg PO Q6HR PRN tab 05/28/19 [Rx] Gabapentin 600 mg PO TID #6 tab 05/28/19 [Rx] HYDROcodone/APAP 7.5-325MG [Gay 7.5-325] 1 each PO Q8H PRN #4 tab 05/28/19 [Rx] INSULIN ASPART (NovoLOG) [NovoLOG (formulary)] 0 unit SQ ACHS vial 05/28/19 [Rx] Insulin Detemir (Levemir) [Levemir] 25 unit SQ HS syr 05/28/19 [Rx] Metoprolol Tartrate [Lopressor] 50 mg PO BID tab 05/28/19 [Rx] OLANZapine [ZyPREXA] 5 mg PO HS tab 05/28/19 [Rx] Oxymetazoline 0.05% Nasl [place] [Afrin 0.05% Nasal [place]] 2 spray NASAL BID bottle 05/28/19 [Rx] Tamsulosin [Flomax] 0.4 mg PO PC-BRKFST cap.er.24h 05/28/19 [Rx] ceFAZolin (PMX-bag) [KEFZOL (PMX-bag)] 2 gm IV Q8H 14 Days #42 bag 05/28/19 [Rx] Follow up Appointment(s)/Referral(s): [facility], [NON-STAFF] - As Needed Arun Berg DO [Primary Care Provider] - 1-2 days Doron Laughlin MD [STAFF PHYSICIAN] - 1 Week Jonah Burgess MD [STAFF PHYSICIAN] - 1 Week Activity/Diet/Wound Care/Special Instructions: Patient is going to [employer] as tolerated Continue current diet dysphagia 3 chopped with no straws and aspiration precautions consistent carb Continue with IV antibiotics of cefazolin 2 g every 8 hours for 2 weeks Follow-up with Dr. Laughlin and the wound care center on Friday Follow-up with Dr. Burgess Continue monitoring blood sugars before meals at bedtime and treat accordingly with sliding scale Continue with wound care of dressing changes and also using Aquacel silver 3 times a week Continue with partial weightbearing and okay to bear weight on the heel of the right foot Continue working with PT/OT therapy
[2019-05-28 14:21] VITALS: BMI 32.0
--- NOTE | 2019-05-28 15:10 | PN ---
PROGRESS NOTE DATE OF SERVICE: 05/28/2019 REASON FOR FOLLOWUP: Right big toe diabetic foot infection with secondary cellulitis. INTERVAL HISTORY: The patient is currently afebrile. Patient is breathing comfortably. Patient denies having any chest pain or cough. No abdominal pain. No pain to the right leg area. PHYSICAL EXAMINATION: Blood pressure 136/72 with a pulse of 103, temperature 98.3, he is 97% on 3 L nasal cannula. General description is a middle-aged male, up in the bed in no distress. RESPIRATORY SYSTEM: Unlabored breathing, clear to auscultation anteriorly. HEART: S1, S2. Regular rate and rhythm. ABDOMEN: Soft, no tenderness. Right foot is currently dressed up. No obvious drainage on the dressing. LABS: Hemoglobin is 11.1, white 8.4, BUN of 18, creatinine 0.82. DIAGNOSTIC IMPRESSION AND PLAN: Patient with group B right big toe diabetic foot infection. In view of the persistent inflammation, recommend to continue the patient on IV cefazolin 2 g q.8 hours for at least 2 weeks with close outpatient followup. Local wound care per Surgery. Discontinue the clindamycin. MMODL / IJN: [id number] /
[2019-05-29] MEDS ORDERED: FAMOTIDINE 20 MG TAB PO SCH (09:00)
== END 2019-05-28 16:04 | DRG 616 ==
LOC: EC 14:05 → 4SSUR 16:43 → 2SICU 05-22 02:38 → 5NMEDONC 05-26 09:49
PROVIDERS: ADMIT Hospitalist; ATTEND Hospitalist
PROC: 0Y6P0Z0 Detachment at Right 1st Toe, Complete, Open Approach (ICD-10-PCS; principal; 2019-05-26 09:10)
PROC: 05HF33Z Insertion of Infusion Device into Left Cephalic Vein, Percutaneous Approach (ICD-10-PCS; 2019-05-27 16:20)
DX: E11.621 Type 2 diabetes mellitus with foot ulcer (principal); G93.41 Metabolic encephalopathy; J69.0 Pneumonitis due to inhalation of food and vomit; E11.52 Type 2 diabetes mellitus with diabetic peripheral angiopathy with gangrene; L03.115 Cellulitis of right lower limb; E87.0 Hyperosmolality and hypernatremia; L03.113 Cellulitis of right upper limb; F10.231 Alcohol dependence with withdrawal delirium; N17.9 Acute kidney failure, unspecified; L97.512 Non-pressure chronic ulcer of other part of right foot with fat layer exposed; I11.9 Hypertensive heart disease without heart failure; R00.0 Tachycardia, unspecified; E66.9 Obesity, unspecified; N13.9 Obstructive and reflux uropathy, unspecified; J44.9 Chronic obstructive pulmonary disease, unspecified; I48.0 Paroxysmal atrial fibrillation; T36.8X5A Adverse effect of other systemic antibiotics, initial encounter; E11.628 Type 2 diabetes mellitus with other skin complications; E87.5 Hyperkalemia; M10.9 Gout, unspecified; M19.031 Primary osteoarthritis, right wrist; E83.42 Hypomagnesemia; B95.4 Other streptococcus as the cause of diseases classified elsewhere; G47.00 Insomnia, unspecified; L03.031 Cellulitis of right toe; Z68.32 Body mass index [BMI] 32.0-32.9, adult; Z79.899 Other long term (current) drug therapy; Z79.4 Long term (current) use of insulin; Z96.642 Presence of left artificial hip joint; Z90.49 Acquired absence of other specified parts of digestive tract; Z89.022 Acquired absence of left finger(s); Z98.42 Cataract extraction status, left eye; Z98.41 Cataract extraction status, right eye; Z87.891 Personal history of nicotine dependence; Z78.1 Physical restraint status; Z86.69 Personal history of other diseases of the nervous system and sense organs; Z83.3 Family history of diabetes mellitus; Z80.3 Family history of malignant neoplasm of breast
CPT/HCPCS: 36410; 36415; 70450; 71045; 71046; 76770; 76937; 80048; 80053; 80306; 81001; 83605; 83735; 84484; 85025; 85027; 85610; 85730; 86850; 86900; 86901; 87040; 87070; 87075; 87077; 87186; 87205; 93005; 93970; 94640; 96365; 96367; 96375; 99285

== ENCOUNTER → 2021-01-04 | Outpatient (CLI) | payer OTHER ==
--- NOTE | 2021-01-04 14:25 | US ---
EXAMINATION TYPE: US venous doppler duplex LE LT DATE OF EXAM: 01/04/2021 1:13 PM COMPARISON: 05/23/2019 CLINICAL HISTORY: 60-year-old male R22.42 Localized swelling mass and lump,R609 Edema. left lower leg redness. Not on blood thinners. COPD> SIDE PERFORMED: Left TECHNIQUE: The lower extremity deep venous system is examined utilizing real time linear array sonog veronika with graded compression, doppler sonography and color-flow sonography. FINDINGS: VESSELS IMAGED: Common Femoral Vein Deep Femoral Vein Greater Saphenous Vein * Femoral Vein Popliteal Vein Small Saphenous Vein * Proximal Calf Veins (* superficial vessels) Left Leg: Negative for DVT IMPRESSION: No evidence for DVT within the left lower extremity imaged from the groin to the upper calf.
== END | disposition home or self-care (01) ==
LOC: RADUSWWP 12:49
PROVIDERS: ATTEND Family Medicine
DX: R22.42 Localized swelling, mass and lump, left lower limb (principal)

== ENCOUNTER → 2021-02-07 | Outpatient (CLI) | payer OTHER ==
--- NOTE | 2021-02-07 10:34 | FL ---
Fluoroscopy INDICATION: Pain FINDINGS: Fluoroscopy time: 41 seconds. Images obtained: 3. There is elevation of the left diaphragm in relation to the right. There appears to be normal motion direction with quiet breathing. There is very limited excursion however. With sniffing, downward farhat on of the left diaphragm is not clearly evident. However, paradoxical motion is not clearly evident. IMPRESSIONS: 1. There appears to be limited excursion of the left diaphragm with quiet breathing and sniffing. No paradoxical motion clearly evident.
== END | disposition home or self-care (01) ==
LOC: RADUSWWP 09:38
PROVIDERS: ATTEND Internal Medicine Critical Care Medicine
DX: J98.6 Disorders of diaphragm (principal)
CPT/HCPCS: 76000

== ENCOUNTER → 2021-11-07 | Outpatient (CLI) | payer OTHER ==
--- NOTE | 2021-11-09 07:57 | XR ---
EXAMINATION TYPE: XR chest 2V DATE OF EXAM: 11/07/2021 COMPARISON: NONE HISTORY: Shortness of breath TECHNIQUE: Frontal and lateral views of the chest are obtained. FINDINGS: Scattered senescent parenchymal changes noted. Hyperinflation compatible with COPD. No evidence for infiltrate. No evidence for atelectasis. Heart size is stable. Mediastinal structures are stable and grossly unremarkable. No evidence for hilar prominence. Degenerative changes dorsal spine. IMPRESSION: 1. No evidence for acute pulmonary disease.
== END | disposition home or self-care (01) ==
LOC: RADXRYALE 09:35
PROVIDERS: ATTEND Physician Assistant
DX: J44.9 Chronic obstructive pulmonary disease, unspecified (principal)
CPT/HCPCS: 71046

== ENCOUNTER → 2021-12-27 | Outpatient (CLI) | payer OTHER ==
--- NOTE | 2021-12-27 10:52 | XR ---
EXAMINATION TYPE: XR foot complete RT DATE OF EXAM: 12/27/2021 COMPARISON: Right foot radiograph 05/20/2019. HISTORY: [id number], [id number], [id number], E1140, [id number] TECHNIQUE: Frontal, lateral and oblique images of the right foot are obtained. FINDINGS: Interval postsurgical amputation of the distal first phalanx and proximal aspect of the fir st metatarsal. No osseous erosions. There is some soft tissue edema in this region. No soft tissue ga s. There is no acute fracture/dislocation evident. The joint spaces appear within normal limits. Dionte ntar and posterior calcaneal enthesophytes. IMPRESSION: 1. No acute fracture or dislocation. No osseous erosions. 2. Postsurgical changes of the distal first phalanx and proximal first metatarsal amputation. There is soft tissue edema in this region.
[2021-12-27 15:31] LABS: Albumin 4.5 g/dL (3.8-4.9); Albumin/Globulin Ratio 2.05 (1.60-3.17); Anion Gap 10.6 mmol/L (10.00-18.00); BUN/Creat Ratio 19.78 Ratio (12.00-20.00); Blood Urea Nitrogen 17.8 mg/dL (9.0-27.0); C Reactive Protein 0.7 mg/dL (0.00-0.80); Calcium 10.3 mg/dL (8.7-10.3); Carbon Dioxide 29.4 mmol/L (20.0-27.5); Globulin 2.2 g/dL (1.6-3.3); Non-African American GFR(CKD) 90.6 (60.0-200.0); Potassium 5.7 mmol/L (3.5-5.5); Prealbumin 30.4 mg/dL (18.0-42.0); Total Bilirubin 0.4 mg/dL (0.30-1.20); Total Protein 6.7 g/dL (6.2-8.2)
[2021-12-27 15:35] LABS: Basophils # (A) 0.07 X 10*3/uL (0.00-0.10); Basophils % (A) 0.9 %; Eosinophils # (A) 0.25 X 10*3/uL (0.04-0.35); Eosinophils % (A) 3.3 %; HCT 38.5 % (39.6-50.0); HGB 12.3 g/dL (13.0-17.0); Immature Grans, Automated 0.8 %; Lymphocytes # (A) 1.59 X 10*3/uL (0.90-5.00); Lymphocytes % (A) 21.2 %; MCH 28.4 pg (27.0-32.0); MCHC 31.9 g/dL (32.0-37.0); MCV 88.9 fL (80.0-97.0); Monocytes % (A) 10.7 %; NRBC Per 100 WBC 0 /100 WBCS (0.0-0.0); Neutrophils # (A) 4.74 X 10*3/uL (1.80-7.70); Neutrophils % (A) 63.1 %; Platelet Count 230 X 10*3/uL (140-440); RBC 4.33 X 10*6/uL (4.40-5.60); RDW 13.2 % (11.5-14.5); WBC 7.51 X 10*3/uL (4.50-10.00)
[2021-12-27 16:05] LABS: Erythrocyte Sedimentation Rate 7 mm/Hr (0-20)
== END | disposition home or self-care (01) ==
LOC: LABWHC1 10:13
PROVIDERS: ATTEND Family Medicine
DX: E11.621 Type 2 diabetes mellitus with foot ulcer (principal); L97.512 Non-pressure chronic ulcer of other part of right foot with fat layer exposed; E11.65 Type 2 diabetes mellitus with hyperglycemia; E11.40 Type 2 diabetes mellitus with diabetic neuropathy, unspecified; M20.41 Other hammer toe(s) (acquired), right foot; R60.0 Localized edema
CPT/HCPCS: 36415; 80053; 83036; 84134; 85025; 85652; 86140

== ENCOUNTER → 2022-01-10 | Outpatient (CLI) | payer OTHER ==
--- NOTE | 2022-01-10 14:46 | US ---
LOWER EXTREMITY VENOUS INSUFFICIENCY CLINICAL HISTORY: E11.621 TYPE 2 DIABETES WITH FOOT ULCER. Wound right 2nd toe x 2-3 months SIDE PERFORMED: bilateral 1) Color flow is present and patency is documented in the following vessels. No DVT or SVT is noted . Common Femoral Vein Deep Femoral Vein Femoral Vein Popliteal Vein Proximal Calf Veins Greater Saph Vein Upper Small Saph Vein 2) There is venous reflux noted at the following venous levels: right EIV, right GSV, right deep fe moral vein, right small saphenous vein. left EIV, left GSV, left CFV, left popliteal vein upper mid a nd distal, left small saphenous vein IMPRESSION: 1. Venous reflux noted in the bilateral lower extremity venous structures discussed above.
--- NOTE | 2022-01-15 11:08 | US ---
EXAMINATION TYPE: US arterial LE single level DATE OF EXAM: 01/10/2022 1:47 PM CLINICAL HISTORY: E11.621 TYPE 2 DIABETES WITH FOOT ULCER. wound right 2nd toe for 2-3 months. right great toe amputation. History of diabetes and hyperlipidemia along with hypertension. Doppler Waveforms: Right: Monophasic Left: Multiphasic Pulse Volume Recording: Pressure Gradients: Ankle-Brachial Indices: Right: 0.55 Left: 1.27 Toe Brachial Indices: Right: Left: 0.83 Loss of phasicity on the right. IMPRESSION: Diminished right TBI with loss of phasicity. At least moderate peripheral arterial disea se in the right lower extremity. Further workup and follow-up advised.
== END | disposition home or self-care (01) ==
LOC: RADUSWWP 12:09
PROVIDERS: ATTEND Podiatrist
DX: E11.621 Type 2 diabetes mellitus with foot ulcer (principal); I87.2 Venous insufficiency (chronic) (peripheral); L97.512 Non-pressure chronic ulcer of other part of right foot with fat layer exposed; E11.65 Type 2 diabetes mellitus with hyperglycemia; E11.40 Type 2 diabetes mellitus with diabetic neuropathy, unspecified; M20.41 Other hammer toe(s) (acquired), right foot
CPT/HCPCS: 93922; 93970